=== PATIENT | female | born 1970 | race Caucasian/White ===

== ENCOUNTER 2016-05-17 06:11 | Inpatient (IN) | payer BC ==
[~2016-05-17] VITALS: Ht 170.2 cm; Wt 160.4 kg
[~2016-05-17 06:11] MED LIST: CETI10TA10 PO; CINN1CAP2 PO; CIPR-255 PO; ESCI10TA17 PO; GLC/500 PO; GLUCTAB7 PO; LSN/10125 PO; MELO15TA4 PO; MULT-513 PO; OMEG10007 PO; PRAV40TA2 PO; SYMIN/8045 INH
[2016-05-17] MEDS ORDERED: PIOG1TAB20 PO (06:49)
[2016-05-17] MEDS ORDERED: OMEG10007 PO (06:49)
[2016-05-17] MEDS ORDERED: SODIUM CHLORIDE 0.9% 1000ML 1,000 ML IV STA (06:53)
[2016-05-17] MEDS ORDERED: PIPERACILLIN/TAZOBACTAM 4.5 GM/100ML D5W IV STA (06:53)
[2016-05-17] MEDS ORDERED: SODIUM CHLORIDE 0.9% 500ML 500 ML IV STA (06:53)
[2016-05-17] MEDS ORDERED: VANCOMYCIN INJ 2,800 MG in SODIUM CHLORIDE 0.9% 500ML 500 ML IV STA (06:53)
--- NOTE | 2016-05-17 07:07 | EMERGENCY ROOM VISIT NOTE ---
History Report prepared by Gretchenibcholo: Nakia Sheets Under the Supervision of: Dr. Maddison Johnston M.D. First contact with patient: 06:43 Chief Complaint: ILLNESS Stated Complaint: MUSCLE ACHES,BACK PAIN,LEG/FOOT RED/PAIN History of Present Illness The patient is a 45 year old female who presents to the Emergency Room with complaints of worsening left lower leg redness over the past few weeks. About a month ago, the patient noticed blisters on her left foot from a pair of shoes. She went to [facility] and had a culture taken which revealed staph. Since then , she has had increased redness and some swelling to her left foot extending up to her left knee. Yesterday, the patient had a subjective fever that seemed to break last evening. Currently, she also complains of a headache, lower back pain , and muscle aches. The patient has a history of non-insulin dependent diabetes. She does not have a history of cellulitis. Denies groin pain or other complaints. She is a never smoker. She does not follow with a flower cheniller. Source of History: patient Onset: a few weeks ago Position: leg (left) Quality: other (red, swollen) Timing: worsening Associated Symptoms: + back pain, + fevers, + headache Note: Other symptoms: muscle aches Review of Systems See HPI for pertinent positives & negatives. A total of 10 systems reviewed and were otherwise negative. Past Medical & Surgical Medical Problems: (1) Arthritis (2) Cellulitis of left lower extremity (3) Diabetes (4) Heart murmur (5) Hypertension Surgical Problems: (1) S/P cholecystectomy Family History Cancer Diabetes mellitus Gallbladder disease Heart disease Hypertension Lung disease Social History Smoking Status: Never Smoker Marital Status: Housing Status: lives with family Occupation Status: employed Current/Historical Medications Scheduled Budesonide/Formoterol Fumarate (Symbicort 80/4.5 Inhaler), 2 PUFFS INH QAM Cinnamon (Cinnamon), 1 MG PO BID Escitalopram (Lexapro), 10 MG PO QAM Fish Oil ([place]-3), 1 CAP PO BID Lafkanmptms-Dkjvbonwecl-Vbr C- (Glucosamine Chondroitin), 1 TAB PO DAILY Hctz/Lisinopril (Lisinopril/Hctz 10/12.5 Mg), 1 TAB PO QPM Meloxicam (Meloxicam), 15 MG PO QAM Metformin Hcl (Glucophage), 1,000 MG PO BID Multivitamins/Minerals (Mvi With Minerals), 1 TAB PO QAM Pioglitazone Hcl (Pioglitazone Hcl), 45 MG PO QPM Pravastatin Sodium (Pravastatin Sodium), 40 MG PO QPM Allergies Coded Allergies: Aspirin (Verified Allergy, Severe, LIPS SWELL, 05/17/16) Physical Exam Vital Signs Date Time Temp Pulse Resp B/P Pulse Ox O2 Delivery O2 Flow Rate FiO2 05/17/16 08:42 76 18 118/67 99 Room Air 05/17/16 06:17 37.4 90 20 126/79 95 Room Air Physical Exam Vital signs reviewed. General: Well-appearing 45 year old female, in no significant distress, morbidly obese. HEENT: No scleral icterus, PERRLA, neck supple. Atraumatic. Cardiovascular: Regular rate and rhythm, no extra sounds. Pulmonary: Clear to auscultation bilaterally, normal work of breathing. Abdomen: Soft, nontender, nondistended, positive bowel sounds. Musculoskeletal: Atraumatic, left lower extremity erythema from the toes to the knee, minimal swelling, warm to touch, open wounds to the left lateral foot, no drainage, eschar noted to the most distal aspects of the wound. Neurologic: Patient awake alert and oriented x 3 Skin: Warm, dry, no rash Medical Decision & Procedures ER Provider Diagnostic Interpretation: Radiology results as stated below per my review and radiologist interpretation: LEFT LOWER EXTREMITY VENOUS DOPPLER CLINICAL HISTORY: Left lower extremity swelling and erythema. COMPARISON STUDY: CT of the abdomen and pelvis December 17, 2014. TECHNIQUE: Sonography of the deep venous system of the left lower extremity was performed. Compression and augmentation were evaluated. FINDINGS: This exam was compromised by inability to tolerate compressions. The left common femoral, superficial femoral and popliteal veins were compressible. Augmentation was normal. Flow was shown within the deep calf vessels. Note was made of an enlarged left inguinal lymph node measured 2.4 x 2.1 x 1.6 cm. The cortex of this node is thickened. A fatty hilum is not definitively identified. IMPRESSION: 1. No evidence of deep venous thrombus within the left lower extremity. 2. Mildly enlarged left inguinal lymph node. This node is indeterminate and may be reactive. However, other etiologies such as a lymphoproliferative process could appear similar. A follow-up ultrasound in 2 months is recommended. If this node persists, ultrasound guided fine needle aspiration is recommended. Electronically signed by: Davi Shell M.D. 05/17/2016 8:38 AM Dictated Date/Time: 05/17/2016 8:35 AM Laboratory Results Test 05/17/16 07:10 05/17/16 07:20 05/17/16 07:50 Prothrombin Time 12.0 SECONDS (9.0-12.0) Prothromb Time International Ratio 1.1 (0.9-1.1) Activated Partial Thromboplast Time 35.2 SECONDS (21.0-31.0) Partial Thromboplastin Ratio 1.4 Direct Bilirubin 0.5 mg/dl (0-0.2) Bedside Lactic Acid Venous 2.34 mmol/L (0.90-1.70) Urine Color DK YELLOW Urine Appearance CLEAR (CLEAR) Urine pH 6.0 (4.5-7.5) Urine Specific [place] 1.017 (1.000-1.030) Urine Protein 1+ (NEG) Urine Glucose (UA) NEG (NEG) Urine Ketones NEG (NEG) Urine Occult Blood NEG (NEG) Urine Nitrite NEG (NEG) Urine Bilirubin NEG (NEG) Urine Urobilinogen NEG (NEG) Urine Leukocyte Esterase MODERATE (NEG) Urine WBC (Auto) 10-30 /hpf (0-5) Urine RBC (Auto) 0-4 /hpf (0-4) Urine Hyaline Casts (Auto) 1-5 /lpf (0-5) Urine Epithelial Cells (Auto) >30 /lpf (0-5) Urine Bacteria (Auto) NEG (NEG) Laboratory results per my review. Medications Administered Medications (Trade) Dose Ordered Sig/Alethea Route Start Time Stop Time Status Last Admin Dose Admin Vancomycin HCl/ Sodium Chloride (Vancomycin Inj/ Nss 500ml) 556 ml @ 200 mls/hr ONE STAT IV 05/17/16 06:53 05/17/16 09:39 DC 05/17/16 08:33 200 MLS/HR Piperacillin Sod/ Tazobactam Sod 4.5 gm 4.5 gm NOW STAT IV 05/17/16 06:53 05/17/16 06:56 DC 05/17/16 07:37 4.5 GM Sodium Chloride 500 ml @ 999 mls/hr Q31M STAT IV 05/17/16 06:53 05/17/16 07:23 DC 05/17/16 07:30 999 MLS/HR Sodium Chloride (Nss 1000ml) 1,000 ml @ 150 mls/hr Q6H40M STAT IV 05/17/16 06:53 05/17/16 12:19 DC 05/17/16 08:33 150 MLS/HR Fentanyl Citrate (Fentanyl Inj) 100 mcg NOW ONCE IV 05/17/16 09:30 05/17/16 09:31 DC 05/17/16 09:43 100 MCG Potassium Chloride (Klor-Con M10) 40 meq NOW STAT PO 05/17/16 10:28 05/17/16 10:29 DC 05/17/16 11:25 40 MEQ Acetaminophen (Tylenol Tab) 650 mg Q4H PRN PO 05/17/16 10:45 06/16/16 10:44 05/18/16 05:08 650 MG ECG Indication: other (sepsis) Rate (beats per minute): 83 Rhythm: normal sinus Findings: no acute ischemic change, no ectopy, other (previous inferior infarct ) ED Course 0654: The patient was evaluated in room B3. A complete history and physical examination was performed. Ordered NSS 1000 ml @ 150 mls/hr IV, NSS 500 ml @ 999 mls/hr IV, Zosyn 4.5 gm IV, Vancomycin HCL 2800 mg/NSS 556 ml @ 200 mls/hr IV. 0842: I discussed the case with Dr. Sharmila BRADFORD Hospitalist. The patient will be evaluated for further management. 0928: Upon reevaluation, the patient is feeling better. I discussed laboratory and radiographic results with her. She verbalized agreement of the treatment plan. 0930: Ordered Fentanyl Inj 100 mcg IV. Medical Decision Differential diagnosis: Etiologies such as cellulitis, abscess, MRSA infection, DVT, necrotizing fasciitis, dermatitis, drug eruption, as well as others were entertained.. This patient was evaluated and appeared to be in some discomfort. IV access was obtained and laboratory work was drawn. The patient was placed on the court monitor and hydrated with normal saline solution. Laboratory work reveals an elevated white blood cell count. Physical examination is concerning for a left large every cellulitis. Lactate is elevated above 2. Blood cultures were obtained and the patient was medicated with IV Zosyn and vancomycin. It seems that the source of the patient's cellulitis is the left foot wound. Ultrasound left lower extremity reveals no evidence of DVT. Patient will be evaluated by the hospitalist service for further management. Consults Time Called: 08 Consulting Physician: Dr. Sharmila BRADFORD Hospitalist Returned Call: 08 I discussed the case with him. The patient will be evaluated for further management. Impression Primary Impression: Left leg cellulitis Additional Impression: Sepsis Scribe Attestation The scribe's documentation has been prepared under my direction and personally reviewed by me in its entirety. I confirm that the note above accurately reflects all work, treatment, procedures, and medical decision making performed by me. Departure Information Dispostion Being Evaluated By Hospitalist Referrals Mike Salas M.D. (PCP) Patient Instructions My [facility] Problem Qualifiers Additional Impression: Sepsis Sepsis type: sepsis due to unspecified organism Qualified Codes: A41.9 - Sepsis, unspecified organism
[2016-05-17 07:27] LABS: BASO % 0.1 %; BASO ABS # 0.01 K/uL (0-0.2); COMPLETE YES; EOS % 0.1 %; HEMATOCRIT 38.6 % (37-47); IG% 0.4 %; LYMPH % 6.5 %; MEAN CELL VOLUME 97.2 fL (80-100); MEAN CORPUSCULAR HEMOGLOBIN 32.2 pg (25-34); MEAN CORPUSCULAR HGB CONC 33.2 g/dl (32-36); MEAN PLATELET VOLUME 9.9 fL (7.4-10.4); MONO % 2.8 %; NEUT % 90.1 %; PLATELET COUNT 246 K/uL (130-400); RED BLOOD COUNT 3.97 M/uL (4.2-5.4); WHITE BLOOD COUNT 13.89 K/uL (4.8-10.8)
[2016-05-17 07:37] LABS: INR 1.1 (0.9-1.1); PARTIAL THROMBOPLASTIN RATIO 1.4
[2016-05-17 07:45] LABS: ALT/SGPT 22 U/L (12-78); BLOOD UREA NITROGEN 16 mg/dl (7-18); BUN/CREATININE RATIO 14.7 (10-20); CARBON DIOXIDE 24 mmol/L (21-32); CHLORIDE 100 mmol/L (98-107); GLUCOSE 142 mg/dl (70-99); MAGNESIUM 2.1 mg/dl (1.8-2.4); POTASSIUM 3.3 mmol/L (3.5-5.1); SODIUM 136 mmol/L (136-145)
[2016-05-17 07:48] LABS: ALKALINE PHOSPHATASE 52 U/L (45-117); AST/SGOT 18 U/L (15-37)
[2016-05-17 08:32] LABS: URINE APPEARANCE CLEAR (CLEAR); URINE BILIRUBIN NEG (NEG); URINE COLOR DK YELLOW; URINE EPITHELIAL CELL AUTO >30 /lpf (0-5); URINE NITRITE NEG (NEG); URINE SPECIFIC GRAVITY 1.017 (1.000-1.030); UROBILINOGEN NEG (NEG); ZZUR CULT IF INDIC CLEAN CATCH YES
--- NOTE | 2016-05-17 08:39 | DIAGNOSTIC IMAGING REPORT ---
LEFT LOWER EXTREMITY VENOUS DOPPLER CLINICAL HISTORY: Left lower extremity swelling and erythema. COMPARISON STUDY: CT of the abdomen and pelvis December 17, 2014. TECHNIQUE: Sonography of the deep venous system of the left lower extremity was performed. Compression and augmentation were evaluated. FINDINGS: This exam was compromised by inability to tolerate compressions. The left common femoral, superficial femoral and popliteal veins were compressible. Augmentation was normal. Flow was shown within the deep calf vessels. Note was made of an enlarged left inguinal lymph node measured 2.4 x 2.1 x 1.6 cm. The cortex of this node is thickened. A fatty hilum is not definitively identified. IMPRESSION: 1. No evidence of deep venous thrombus within the left lower extremity. 2. Mildly enlarged left inguinal lymph node. This node is indeterminate and may be reactive. However, other etiologies such as a lymphoproliferative process could appear similar. A follow-up ultrasound in 2 months is recommended. If this node persists, ultrasound guided fine needle aspiration is recommended. Electronically signed by: Davi Shell M.D. 05/17/2016 8:38 AM Dictated Date/Time: 05/17/2016 8:35 AM
[2016-05-17 08:43] LABS: MANUAL MICROSCOPIC REQUIRED? NO; REVIEW REQ? NO
[2016-05-17] MEDS ORDERED: FENTANYL CITRATE INJ 50 MCG/1 ML 2 ML VIAL IV ONE (09:30)
[2016-05-17] MEDS ORDERED: POTASSIUM CHLORIDE 10 MEQ TABCR PO STA (10:28)
[2016-05-17] MEDS ORDERED: DEXTROSE 50% 50 ML SYR IV PRN (10:45)
[2016-05-17] MEDS ORDERED: GLUCAGON FOR INJ 1 MG VIAL SQ PRN (10:45)
[2016-05-17] MEDS ORDERED: GLUCOSE 10 TABS/TUBE PO PRN (10:45)
[2016-05-17] MEDS ORDERED: GLUCOSE 40% GEL 15 GM TUBE PO PRN (10:45)
[2016-05-17] MEDS ORDERED: MoRPHine SULFATE 4 MG/ML 1 ML CARP\\VIAL IV PRN (10:45)
[2016-05-17] MEDS ORDERED: OPTIRAY 320 IV PRN (10:45)
--- NOTE | 2016-05-17 11:14 | History and Physical ---
History & Physical Date & Time of Service: May 17, 2016 at 10:56 Chief Complaint: Muscle Aches,Back Pain,Leg/Foot Red/Pain Primary Care Physician: Mike Salas M.D. History of Present Illness Source: patient, family Haylie Rojas is a 45 year-old female who is morbidly obese and carries a medical history of poorly controlled T2DM x6 years, HTN x25 years, asthma, hypercholesterolemia who comes in with LLE redness and swelling. She reports she had noted a blister on the lateral side of her left foot about a month ago, went to [facility] where a culture of the drain grew Staph and was treated with an unnamed antibiotic for 10 days which she has finished a few weeks ago. She has been following with her PCP and the left foot blister was healing well when 2 days ago, she suddenly had chills while at work. She took the day off yesterday and continued to have subjective fevers, diaphoresis and chills throughout the day. Late last night, she noted that her left calf was more red and also felt tight which prompted her to seek medical attention. She otherwise does not report n/v/constipation/diarrhea, headaches, chest pain, sob , abd pain. She also denies urinary symptoms such as burning/dysuria/hematuria. She reports her diabetes was poorly controlled with an A1c of 9.8 on metformin. She was subsequently started on Actos with improvement in her DM control since then. She reports never having seen a warp tester. Past Medical/Surgical History PMH - HTN x25 yrs, T2DM x6 years, hypercholesterolemia, asthma, morbid obesity, one episode of kidney stone Psh - right knee meniscal tear repair, cholecystectomy, rectal tear s/p botox, cone biopsy Allergies: Aspirin (angioedema) Family History Cancer Diabetes mellitus Gallbladder disease Heart disease Hypertension Lung disease FHx: diabetes in both side of family father with heart disease sister with diabetes Social History Smoking Status: Never Smoker Alcohol Use: none Drug Use: none Marital Status: Occupational Status: employed Allergies Coded Allergies: Aspirin (Verified Allergy, Severe, LIPS SWELL, 05/17/16) Home Medications Scheduled Budesonide/Formoterol Fumarate (Symbicort 80/4.5 Inhaler), 2 PUFFS INH QAM Cinnamon (Cinnamon), 1 MG PO BID Escitalopram (Lexapro), 10 MG PO QAM Fish Oil ([place]-3), 1 CAP PO BID Yeiqrmfhiqa-Qlbplmhaggd-Szv C- (Glucosamine Chondroitin), 1 TAB PO DAILY Hctz/Lisinopril (Lisinopril/Hctz 10/12.5 Mg), 1 TAB PO QPM Meloxicam (Meloxicam), 15 MG PO QAM Metformin Hcl (Glucophage), 1,000 MG PO BID Multivitamins/Minerals (Mvi With Minerals), 1 TAB PO QAM Pioglitazone Hcl (Pioglitazone Hcl), 45 MG PO QPM Pravastatin Sodium (Pravastatin Sodium), 40 MG PO QPM Review of Systems Ros as per HPI. Rest of ROS negative. Physical Exam Vital Signs Date Time Temp Pulse Resp B/P Pulse Ox O2 Delivery O2 Flow Rate FiO2 05/17/16 08:42 76 18 118/67 99 Room Air 05/17/16 06:17 37.4 90 20 126/79 95 Room Air NAD, AOX3, coherent and fluent speech eomi, perrl, anicteric s1 s2 rrr, no murmurs appreciated ctab no w/r/r abd soft nt/nd +BS no RLE edema, LLE 1+ swelling with erythema and warmth, slight bogginess in both sides of the left ankle good DP pulses 2+ on both feet, left 5th toe scab/necrotic tissue with lateral healing / dry wound Diagnostics Laboratory Results Results Past 24 Hours Test 05/17/16 07:10 05/17/16 07:20 05/17/16 07:50 Range/Units White Blood Count 13.89 4.8-10.8 K/uL Red Blood Count 3.97 4.2-5.4 M/uL Hemoglobin 12.8 12.0-16.0 g/dL Hematocrit 38.6 37-47 % Mean Corpuscular Volume 97.2 80-100 fL Mean Corpuscular Hemoglobin 32.2 25-34 pg Mean Corpuscular Hemoglobin Concent 33.2 32-36 g/dl Platelet Count 246 130-400 K/uL Mean Platelet Volume 9.9 7.4-10.4 fL Neutrophils (%) (Auto) 90.1 % Lymphocytes (%) (Auto) 6.5 % Monocytes (%) (Auto) 2.8 % Eosinophils (%) (Auto) 0.1 % Basophils (%) (Auto) 0.1 % Neutrophils # (Auto) 12.52 1.4-6.5 K/uL Lymphocytes # (Auto) 0.90 1.2-3.4 K/uL Monocytes # (Auto) 0.39 0.11-0.59 K/uL Eosinophils # (Auto) 0.01 0-0.5 K/uL Basophils # (Auto) 0.01 0-0.2 K/uL RDW Standard Deviation 51.2 36.4-46.3 fL RDW Coefficient of Variation 14.3 11.5-14.5 % Immature Granulocyte % (Auto) 0.4 % Immature Granulocyte # (Auto) 0.06 0.00-0.02 K/uL Prothrombin Time 12.0 9.0-12.0 SECONDS Prothromb Time International Ratio 1.1 0.9-1.1 Activated Partial Thromboplast Time 35.2 21.0-31.0 SECONDS Partial Thromboplastin Ratio 1.4 Sodium Level 136 136-145 mmol/L Potassium Level 3.3 3.5-5.1 mmol/L Chloride Level 100 98-107 mmol/L Carbon Dioxide Level 24 21-32 mmol/L Anion Gap 12.0 3-11 mmol/L Blood Urea Nitrogen 16 7-18 mg/dl Creatinine 1.10 0.60-1.20 mg/dl Estimated GFR () 69.7 Estimated GFR (Non- 60.2 BUN/Creatinine Ratio 14.7 10-20 Random Glucose 142 70-99 mg/dl Calcium Level 9.0 8.5-10.1 mg/dl Magnesium Level 2.1 1.8-2.4 mg/dl Total Bilirubin 1.8 0.2-1 mg/dl Direct Bilirubin 0.5 0-0.2 mg/dl Aspartate Amino Transf (AST/SGOT) 18 15-37 U/L Alanine Aminotransferase (ALT/SGPT) 22 12-78 U/L Alkaline Phosphatase 52 45-117 U/L Total Protein 8.2 6.4-8.2 gm/dl Albumin 3.3 3.4-5.0 gm/dl Bedside Lactic Acid Venous 2.34 0.90-1.70 mmol/L Urine Color DK YELLOW Urine Appearance CLEAR CLEAR Urine pH 6.0 4.5-7.5 Urine Specific [place] 1.017 1.000-1.030 Urine Protein 1+ NEG Urine Glucose (UA) NEG NEG Urine Ketones NEG NEG Urine Occult Blood NEG NEG Urine Nitrite NEG NEG Urine Bilirubin NEG NEG Urine Urobilinogen NEG NEG Urine Leukocyte Esterase MODERATE NEG Urine WBC (Auto) 10-30 0-5 /hpf Urine RBC (Auto) 0-4 0-4 /hpf Urine Hyaline Casts (Auto) 1-5 0-5 /lpf Urine Epithelial Cells (Auto) >30 0-5 /lpf Urine Bacteria (Auto) NEG NEG Microbiology Results 05/17/16 Blood Culture, Received Pending 05/17/16 Blood Culture, Received Pending 05/17/16 Urine Culture, Received Pending Diagnostic Radiology LEFT LOWER EXTREMITY VENOUS DOPPLER CLINICAL HISTORY: Left lower extremity swelling and erythema. COMPARISON STUDY: CT of the abdomen and pelvis December 17, 2014. TECHNIQUE: Sonography of the deep venous system of the left lower extremity was performed. Compression and augmentation were evaluated. FINDINGS: This exam was compromised by inability to tolerate compressions. The left common femoral, superficial femoral and popliteal veins were compressible. Augmentation was normal. Flow was shown within the deep calf vessels. Note was made of an enlarged left inguinal lymph node measured 2.4 x 2.1 x 1.6 cm. The cortex of this node is thickened. A fatty hilum is not definitively identified. IMPRESSION: 1. No evidence of deep venous thrombus within the left lower extremity. 2. Mildly enlarged left inguinal lymph node. This node is indeterminate and may be reactive. However, other etiologies such as a lymphoproliferative process could appear similar. A follow-up ultrasound in 2 months is recommended. If this node persists, ultrasound guided fine needle aspiration is recommended. Impression Assessment and Plan 1. LLE cellulitis - h/o "staph" infection, rapidity of symptoms however is more consistent with strep - given zosyn and vanco in ED, will cont vanco - ID and Ortho consult - will obtain LLE CT to eval for any drainable abscess - pain control 2. T2DM - glycemic consult - check A1c 3. HTN - well-controlled - cont HCTZ and lisinopril home dosages 4. Hypercholesterolemia - hold fish oil for now, cont statin 5. Anxiety/depression - cont home med lexapro 6. Asthma - stable - cont symbicort 7. dvt ppx VTE Prophylaxis VTE Risk Assessment Done? Y/N: Yes Risk Level: Moderate
[2016-05-17] MEDS ORDERED: VANCOMYCIN CONSULT ACTIVE PRN (11:15)
[2016-05-17] MEDS ORDERED: PATIENT'S HEIGHT AND/OR WEIGHT NEEDED SCH (11:15)
--- NOTE | 2016-05-17 11:24 | DIAGNOSTIC IMAGING REPORT ---
LEFT LOWER LEG CT CT DOSE: 350.85 mGy.cm HISTORY: Left lower leg swelling. TECHNIQUE: Multiaxial CT images of the left lower leg were performed and reformatted in the sagittal and coronal plane following the use of intravenous contrast. COMPARISON: Left leg venous Doppler 05/17/2016. FINDINGS: Subcutaneous edema/fat stranding within the left lower leg and foot. This is most pronounced at the distal left lower leg. There is mild skin thickening. No loculated fluid collections to suggest an abscess. Fatty atrophy of the majority of the foot most. No significant knee effusion. No fracture or dislocation within the visualized osseous structures. No CT evidence for osteomyelitis. Moderate osteoarthritis within the left. IMPRESSION: Subcutaneous edema/fat stranding within the majority of the left lower leg and left foot which is most pronounced at the distal left lower leg. There is also mild skin thickening. This favors a cellulitis. No loculated fluid collections to suggest an abscess. Electronically signed by: Nirav Chacko M.D. 05/17/2016 11:23 AM Dictated Date/Time: 05/17/2016 11:16 AM
[2016-05-17] MEDS ORDERED: PHARMACY GLYCEMIC MGMT CONSULT PRN (11:43)
[2016-05-17 11:45] VITALS: BP 119/76; PULSE 83; TEMP 37.4; O2SAT 97; Ht 170.2 cm; Wt 160.4 kg
[2016-05-17 12:35] VITALS: O2SAT 97
[2016-05-17] MEDS: INSULIN ASPART 100 UNITS/ML 3 ML PEN SC SCH ×3 (12:52→21:00)
[2016-05-17] MEDS: ACETAMINOPHEN 325 MG TAB PO PRN ×2 (12:56→21:50)
--- NOTE | 2016-05-17 13:03 | Pharmacy Progress Note ---
Glycemic Control Intl Consult Date of Service May 17, 2016. Scope Glycemic Pharmacist consulted by Dr Escamilla on 05/17/16 for glycemic control and to write orders per [facility] inpatient glycemic control protocol Objective Weight (Kilograms): 160.450 Accuchecks BSG (last 24hrs): Test 05/17/16 07:10 05/17/16 12:09 Random Glucose 142 mg/dl (70-99) Bedside Glucose 107 mg/dl (70-90) Laboratory Data (last 24hrs) Test 05/17/16 07:10 Anion Gap 12.0 mmol/L BUN/Creatinine Ratio 14.7 Blood Urea Nitrogen 16 mg/dl Creatinine 1.10 mg/dl Potassium Level 3.3 mmol/L Sodium Level 136 mmol/L White Blood Count 13.89 K/uL Red Blood Count 3.97 M/uL Hemoglobin 12.8 g/dL Hematocrit 38.6 % Mean Corpuscular Volume 97.2 fL Mean Corpuscular Hemoglobin 32.2 pg Mean Corpuscular Hemoglobin Concent 33.2 g/dl Platelet Count 246 K/uL Mean Platelet Volume 9.9 fL Neutrophils (%) (Auto) 90.1 % Lymphocytes (%) (Auto) 6.5 % Monocytes (%) (Auto) 2.8 % Eosinophils (%) (Auto) 0.1 % Basophils (%) (Auto) 0.1 % Neutrophils # (Auto) 12.52 K/uL Lymphocytes # (Auto) 0.90 K/uL Monocytes # (Auto) 0.39 K/uL Eosinophils # (Auto) 0.01 K/uL Basophils # (Auto) 0.01 K/uL HbA1c 8.5% on 05/26/14 (outdated- new result pending for tomorrow with AM labs) Recent Pertinent Medications Outpatient Anti-diabetic Regimen: * Metformin 1,000mg PO BID * Actos 45mg PO daily * Cinnamon BID Risk Factors for Insulin Resistance: * Infection * Obesity * History of uncontrolled DM/elevated A1c Assessment & Plan ASSESSMENT: * 45yo T2DM female with sub-optimal glycemic control as an outpatient per pt reported A1c. Updated value pending for tomorrow AM * Pt is maintained on oral antidiabetic agents as an outpatient * Oral agents are not recommended for inpatient use d/t difficultly titrating in acute situations, drug interactions, & changing PO intake/status * ADA recommends re-initiating outpatient oral agents 1-2 days prior to discharge if/when appropriate if they were held on admission. * Recommended regimen for inpatient use is SQ Basal Bolus insulin regimen with Lantus + NovoLog * Weight based SQ basal bolus insulin dosing per [facility] calculator will be used while oral antidiabetic agents on hold. Will titrate parameters based on BSG trends * BSGs within normal limits on admission and currently NPO status. Basal insulin may not be warranted at this time. Will initiate basal insulin for persistent hyperglycemia (BSG > 180mg/dl) * ADA & AACE recommend a goal blood sugar range 140-180 mg/dl for the majority of critically ill & non-critically ill patients. However, more stringent targets may be selected in individual cases. Will utilize more stringent target of 110-140mg/dl based on patient age & comorbidities. PLAN FOR INPATIENT GLYCEMIC CONTROL: * Holding outpatient oral diabetes medications * Depending on A1c result and discharge plan - will try to re-initiate 1-2 days prior to discharge once renal function assessed and PO intake adequate * Basal insulin with Lantus per conservative weight based dosing for persistent hyperglycemia (BSG > 180mg/dl). If needed, would start Lantus 15 units SQ BID * Correctional Insulin with NOVOLOG per scale ACHS or Q6hrs while NPO * Goal Range: Low 110 mg/dL - High 140 mg/dL * Correction Factor: 15 mg/dL/unit * Nutritional / Prandial insulin per carb ratio of 1 unit per 5 grams CHO consumed * Please note that the plan above was derived based on current level of insulin resistance and hospital stress. These recommendations are appropriate for inpatient admission only. Plan of care upon discharge will need to be reassessed to avoid potential outpatient hypo/hyperglycemia. Thank you.
--- NOTE | 2016-05-17 13:13 | Pharmacy Progress Note ---
Pharmacy Antibiotic Consult Date of Service: May 17, 2016. Pharmacy Dosing Scope Pharmacy is consulted to initiate Vancomycin IV dosing therapy, order appropriate labs and adjust drug dose/frequency. Subjective The patient is a 45 year old female admitted on May 17, 2016 at 10:48 with LLE Cellulitis, history of staph, but rapidity of symptoms more consistent with strep. IV Zosyn and Vanco started in ED, ID & Ortho consults. Objective Height (Feet): 5 Height (Inches): 7.00 Weight (Kilograms): 160.450 Lab Results (24hrs): Laboratory Tests Test 05/17/16 07:10 BUN/Creatinine Ratio 14.7 Blood Urea Nitrogen 16 mg/dl Creatinine 1.10 mg/dl White Blood Count 13.89 K/uL Red Blood Count 3.97 M/uL Hemoglobin 12.8 g/dL Hematocrit 38.6 % Mean Corpuscular Volume 97.2 fL Mean Corpuscular Hemoglobin 32.2 pg Mean Corpuscular Hemoglobin Concent 33.2 g/dl Platelet Count 246 K/uL Mean Platelet Volume 9.9 fL Neutrophils (%) (Auto) 90.1 % Lymphocytes (%) (Auto) 6.5 % Monocytes (%) (Auto) 2.8 % Eosinophils (%) (Auto) 0.1 % Basophils (%) (Auto) 0.1 % Neutrophils # (Auto) 12.52 K/uL Lymphocytes # (Auto) 0.90 K/uL Monocytes # (Auto) 0.39 K/uL Eosinophils # (Auto) 0.01 K/uL Basophils # (Auto) 0.01 K/uL Micro Results: blood and urine cultures pending Recent Pertinent Medications Zosyn 4.5g IV x1 in ED at 0737 Assessment & Plan 45 yo obese (BMI 55.4kg/m2) female admitted with LLE Cellulitis. * Received in ED: Loading dose: Vancomycin 2800 mg (17.5mg/kg) IV X 1 dose. Will begin maintenance dosing about 10 hours after. * Vancomycin 2000 mg (12.5mg/kg) IV every 14 hours * Pharmacokinetic parameters: T1/2 = 11hrs, Cristhian = 0.063/hr, Vd = 0.6L/Kg * Goal trough level estimate: around 15 mcg/mL for cellulitis * Trough level has been ordered for: prior to 2200 dose, this will be after patient has received 3 total doses. Pharmacy will continue to follow and will adjust dose/frequency as necessary. Thank you
--- NOTE | 2016-05-17 13:29 | Medical Consult ---
Consultation Date of Consultation: May 17, 2016. Attending Physician: Olimpia Escamilla MD Reason for Consultation: left leg cellulitis History of Present Illness 45-year-old female with longstanding poorly controlled diabetes mellitus, who was in usual state of health until several weeks ago, when she developed blister on her right foot from poorly fitting shoes. Area became red and inflamed, and she sought medical attention from a local walk-in clinic. She she was given an unknown antibiotic, and reportedly culture of the blister fluid grew Staphylococcus. Had initial improvement, but approximately 2 days ago, noted markedly worsening swelling and redness of the foot, with redness extending up her leg to her knee. She has not noted any fever but felt ill with chills. She returned to the hospital and now has been admitted for cellulitis of her right leg. She has been started empirically on IV vancomycin , has noted little changed since admission. She remains afebrile. Blood cultures have been taken and are pending. Denies any shortness of breath or chest pain. CT scan of the leg, Read by me, shows evidence of cellulitis but no drainable collection or deep infection. Past Medical/Surgical History Medical Problems: (1) Left leg cellulitis Status: Acute (2) Sepsis Status: Acute Medical Problems: (1) Arthritis (2) Cellulitis of left lower extremity (3) Diabetes (4) Heart murmur (5) Hypertension Surgical Problems: (1) S/P cholecystectomy Family History Cancer Diabetes mellitus Gallbladder disease Heart disease Hypertension Lung disease Social History Smoking Status: Never Smoker Alcohol Use: none Drug Use: none Marital Status: Housing Status: lives with family Occupation Status: employed Allergies Coded Allergies: Aspirin (Verified Allergy, Severe, LIPS SWELL, 05/17/16) Current Inpatient Medications Current Inpatient Medications Medications (Trade) Dose Ordered Sig/Alethea Route Start Time Stop Time Status Last Admin Dose Admin Ioversol (Optiray 320) 125 ml UD PRN IV 05/17/16 10:45 05/21/16 10:44 Enoxaparin Sodium (Lovenox Inj) 40 mg Q24H SQ 05/17/16 21:00 06/16/16 20:59 Acetaminophen (Tylenol Tab) 650 mg Q4H PRN PO 05/17/16 10:45 06/16/16 10:44 05/17/16 12:56 650 MG Insulin Aspart (novoLOG ASPART) SLIDING SCALE If C... Q6 SC 05/17/16 12:00 06/16/16 11:59 Glucose (Glucose 40% Gel) 15-30 GRAMS 15 GRAMS... UD PRN PO 05/17/16 10:45 06/16/16 10:44 Glucose (Glucose Chew Tab) 4-8 Tablets 4 Tabl... UD PRN PO 05/17/16 10:45 06/16/16 10:44 Dextrose (Dextrose 50% 50ML Syringe) 25-50ML OF 50% DW IV FOR... UD PRN IV 05/17/16 10:45 06/16/16 10:44 Glucagon (Glucagon Inj) 1 mg UD PRN SQ 05/17/16 10:45 06/16/16 10:44 Morphine Sulfate (MoRPHine SULFATE INJ) 2 mg Q4H PRN IV 05/17/16 10:45 05/31/16 10:44 Morphine Sulfate (MoRPHine SULFATE INJ) 4 mg Q4H PRN IV 05/17/16 10:45 05/31/16 10:44 Budesonide/ Formoterol Fumarate (Symbicort 80/ 4.5 Inh) 2 puffs QAM INH 05/18/16 09:00 06/17/16 08:59 Escitalopram Oxalate (Lexapro Tab) 10 mg QAM PO 05/18/16 09:00 06/17/16 08:59 HCTZ/Lisinopril (Prinzide 10-12.5MG Tab) 1 tab QPM PO 05/17/16 21:00 06/16/16 20:59 Multivitamins/ Minerals (Multivitamin W/ Minerals Tab) 1 tab QAM PO 05/18/16 09:00 06/17/16 08:59 Pravastatin Sodium (Pravachol Tab) 40 mg QPM PO 05/17/16 21:00 06/16/16 20:59 Miscellaneous Information (Consult Glycemic Management Pharmacy) 1 ea UD PRN N/A 05/17/16 11:43 06/16/16 11:42 Vancomycin HCl 1 ea 1 ea UD PRN N/A 05/17/16 11:15 06/16/16 11:14 Vancomycin HCl/ Sodium Chloride (Vancomycin Inj/ Nss 500ml) 540 ml @ 200 mls/hr Q14H IV 05/17/16 18:00 05/27/16 17:59 Review of Systems Constitutional: + chills, + fatigue, + fever, + sweats, + weakness Eyes: No problem reported ENT: No problem reported Respiratory: No problem reported Cardiovascular: No problem reported Abdomen: No problem reported Musculoskeletal: + calf pain, + swelling Genitourinary - Female: No problem reported Neurologic: No problem reported Psychiatric: No problem reported Endocrine: No problem reported Hematologic / Lymphatic: No problem reported Integumentary: No problem reported Allergic / Immunologic: No problem reported Physical Exam Date Time Temp Pulse Resp B/P Pulse Ox O2 Delivery O2 Flow Rate FiO2 05/17/16 12:35 97 Room Air 05/17/16 11:45 97 Room Air 05/17/16 11:45 37.4 83 16 119/76 05/17/16 11:24 79 20 139/71 99 Room Air 05/17/16 08:42 76 18 118/67 99 Room Air 05/17/16 06:17 37.4 90 20 126/79 95 Room Air General Appearance: WD/WN, no apparent distress, + obese Head: normocephalic, atraumatic Eyes: normal inspection, EOMI, sclerae normal ENT: normal ENT inspection, hearing grossly normal, pharynx normal Neck: supple, no adenopathy, thyroid normal, trachea midline Respiratory/Chest: chest non-tender, lungs clear, normal breath sounds, no respiratory distress Cardiovascular: regular rate, rhythm, no gallop, no murmur Abdomen/GI: normal bowel sounds, non tender, soft, no organomegaly Back: normal inspection, no CVA tenderness Extremities/Musculoskelatal: normal capillary refill, + inflammation (left leg) , + swelling (left leg) Neurologic/Psych: alert, oriented x 3 Skin: normal color, no rash, + pertinent finding (left leg cellulitis from foot to knee, eschar left 5th toe and lateral foot) Laboratory Results Date/Time Source Procedure Growth Status 05/17/16 07:20 Blood Blood Culture Pending Received 05/17/16 07:10 Blood Blood Culture Pending Received 05/17/16 07:50 Urine , Clean Catch Urine Culture Pending Received Last 24 Hours Test 05/17/16 07:10 05/17/16 07:20 05/17/16 07:50 05/17/16 12:09 White Blood Count 13.89 K/uL Red Blood Count 3.97 M/uL Hemoglobin 12.8 g/dL Hematocrit 38.6 % Mean Corpuscular Volume 97.2 fL Mean Corpuscular Hemoglobin 32.2 pg Mean Corpuscular Hemoglobin Concent 33.2 g/dl Platelet Count 246 K/uL Mean Platelet Volume 9.9 fL Neutrophils (%) (Auto) 90.1 % Lymphocytes (%) (Auto) 6.5 % Monocytes (%) (Auto) 2.8 % Eosinophils (%) (Auto) 0.1 % Basophils (%) (Auto) 0.1 % Neutrophils # (Auto) 12.52 K/uL Lymphocytes # (Auto) 0.90 K/uL Monocytes # (Auto) 0.39 K/uL Eosinophils # (Auto) 0.01 K/uL Basophils # (Auto) 0.01 K/uL RDW Standard Deviation 51.2 fL RDW Coefficient of Variation 14.3 % Immature Granulocyte % (Auto) 0.4 % Immature Granulocyte # (Auto) 0.06 K/uL Prothrombin Time 12.0 SECONDS Prothromb Time International Ratio 1.1 Activated Partial Thromboplast Time 35.2 SECONDS Partial Thromboplastin Ratio 1.4 Sodium Level 136 mmol/L Potassium Level 3.3 mmol/L Chloride Level 100 mmol/L Carbon Dioxide Level 24 mmol/L Anion Gap 12.0 mmol/L Blood Urea Nitrogen 16 mg/dl Creatinine 1.10 mg/dl Estimated GFR () 69.7 Estimated GFR (Non- 60.2 BUN/Creatinine Ratio 14.7 Random Glucose 142 mg/dl Calcium Level 9.0 mg/dl Magnesium Level 2.1 mg/dl Total Bilirubin 1.8 mg/dl Direct Bilirubin 0.5 mg/dl Aspartate Amino Transf (AST/SGOT) 18 U/L Alanine Aminotransferase (ALT/SGPT) 22 U/L Alkaline Phosphatase 52 U/L Total Protein 8.2 gm/dl Albumin 3.3 gm/dl Bedside Lactic Acid Venous 2.34 mmol/L Urine Color DK YELLOW Urine Appearance CLEAR Urine pH 6.0 Urine Specific [place]at[place] 1.017 Urine Protein 1+ Urine Glucose (UA) NEG Urine Ketones NEG Urine Occult Blood NEG Urine Nitrite NEG Urine Bilirubin NEG Urine Urobilinogen NEG Urine Leukocyte Esterase MODERATE Urine WBC (Auto) 10-30 /hpf Urine RBC (Auto) 0-4 /hpf Urine Hyaline Casts (Auto) 1-5 /lpf Urine Epithelial Cells (Auto) >30 /lpf Urine Bacteria (Auto) NEG Bedside Glucose 107 mg/dl LEFT LOWER LEG CT CT DOSE: 350.85 mGy.cm HISTORY: Left lower leg swelling. TECHNIQUE: Multiaxial CT images of the left lower leg were performed and reformatted in the sagittal and coronal plane following the use of intravenous contrast. COMPARISON: Left leg venous Doppler 05/17/2016. FINDINGS: Subcutaneous edema/fat stranding within the left lower leg and foot. This is most pronounced at the distal left lower leg. There is mild skin thickening. No loculated fluid collections to suggest an abscess. Fatty atrophy of the majority of the foot most. No significant knee effusion. No fracture or dislocation within the visualized osseous structures. No CT evidence for osteomyelitis. Moderate osteoarthritis within the left. IMPRESSION: Subcutaneous edema/fat stranding within the majority of the left lower leg and left foot which is most pronounced at the distal left lower leg. There is also mild skin thickening. This favors a cellulitis. No loculated fluid collections to suggest an abscess. Electronically signed by: Nirav Chacko M.D. 05/17/2016 11:23 AM Dictated Date/Time: 05/17/2016 11:16 AM The status of this report is Signed. Draft = Not yet reviewed or approved by Radiologist. Signed = Reviewed and approved by Radiologist. <AttendingPhy></AttendingPhy> <FamilyPhy>Mike Salas M.D.</FamilyPhy> < PrimaryPhy>Mike Salas M.D.</PrimaryPhy> <UnitNumber>[id number]</ UnitNumber> <VisitNumber>[id number]</VisitNumber> <PatientName>ALTHEAELGINMONICA< /PatientName> <DateOfBirth>1970</DateOfBirth> <Location>[facility]</Location> Assessment & Plan Left leg cellulitis in diabetic female. Initial culture with Staph, but wonder about streptococcal secondary infection given rapidity of spread and systemic complaints. Given difficulty with therapeutic vancomycin levels, will change patient to IV ceftaroline 600 mg q 12 hours. No obvious indications for surgical intervention at present time. Length of IV therapy to be determined by clinical response, Will follow.
[2016-05-17] MEDS: CEFTAROLINE FOSAMIL INJ 600 MG in SODIUM CHLORIDE 0.9% 250ML 250 ML IV SCH (14:28)
[2016-05-17 15:25] VITALS: BP 93/52; PULSE 72; TEMP 37.1; O2SAT 97
[2016-05-17 15:26] VITALS: BP 103/64
[2016-05-17] MEDS ORDERED: VANCOMYCIN INJ 2,000 MG in SODIUM CHLORIDE 0.9% 500ML 500 ML IV SCH (18:00)
[2016-05-17] MEDS ORDERED: NURSING VERBAL MED ORDER ONE (19:30)
[2016-05-17] MEDS ORDERED: VANCOMYCIN 1GM/270ML NSS IV SCH (21:00)
[2016-05-17] MEDS: INSULIN GLARGINE SOLOSTAR 100 UNITS/ML 3 ML PEN SC SCH (21:00)
[2016-05-17] MEDS ORDERED: LISINOPRIL/HCTZ 10/12.5MG TAB PO SCH (21:00)
[2016-05-17] MEDS: PRAVASTATIN SOD 40 MG TAB PO SCH (21:42)
[2016-05-17] MEDS: ENOXAPARIN 40 MG/0.4 ML SYR SQ SCH (21:43)
[2016-05-17 22:50] VITALS: BP 105/66; PULSE 85; TEMP 37.3; O2SAT 96
[2016-05-18 00:23] VITALS: O2SAT 97
--- NOTE | 2016-05-18 01:35 | ORTHOPEDIC CONSULTATION ---
DATE OF CONSULTATION: 05/17/2016 HISTORY OF PRESENT ILLNESS: This is a 45-year-old female seen at the request of Dr. Escamilla for left lower extremity cellulitis and leg pain. Apparently, the patient had noticed blistering on lateral side of her left foot if she wore some shoes that were not well fitting. She went to [facility], there was some drainage, which was cultured, it was noted to be staph, and was treated with an antibiotic for 10 days, which she finished several weeks ago. She noted that her blister was healing fairly well with some scabbing and then 2 days ago had chills while at work while at [employer]. She took the day off yesterday and had fevers without any actual temperature taken and chills throughout the day. She noted that her left calf was more and more red and swollen since yesterday with increasing tightness and then she presented to the Emergency Department. She denies nausea, vomiting, diarrhea, chest pain, shortness of breath, double vision, blurry vision. No dysuria or hematuria. PAST MEDICAL HISTORY: Type 2 diabetes mellitus for the last 6 years, hypercholesterolemia, hypertension x25 years, asthma, morbid obesity, kidney stones. PAST SURGICAL HISTORY: Right knee meniscal debridement, cholecystectomy, rectal tear and cone biopsy. ALLERGIES: ASPIRIN, SHE HAS HAD ANGIOEDEMA. MEDICATIONS: Symbicort 80/4.5 inhaler q.a.m., Lexapro 10 mg p.o. q.a.m., fish oil 1 cap p.o. b.i.d., glucosamine/chondroitin sulfate 1 tab p.o. daily, lisinopril/hydrochlorothiazide 10/12.5 mg 1 tab p.o. q.p.m., Meloxicam 50 mg p.o. q.a.m., Glucophage 1000 mg p.o. b.i.d., multivitamin with minerals 1 tab p.o. q.a.m. pioglitazone HCL 45 mg p.o. q.p.m. and pravastatin 40 mg p.o. q.p.m. SOCIAL HISTORY: She is . She denies tobacco, alcohol or drug use. 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 PHYSICAL EXAMINATION: GENERAL: This is a 45-year-old woman who is morbidly obese. She is sitting supine in her hospital room with her family members present. Alert and oriented x3. Speech is clear and fluent. Affect is appropriate. EXTREMITIES: Examination of bilateral lower extremities demonstrates morbid obesity, left lower extremity cellulitis extending from the infrapatellar region distally including the entire foot and toes. She has significant tenderness to palpation along the left lower extremity. She has a 2-3/4 edema in the left lower extremity where she has 1-2/4 edema in the right lower extremity. Dorsalis pedis and posterior tib pulses 2/4 bilateral lower extremities. She has uniform fusiform swelling of the left lower extremity. Foot is sensate, is warm, limited range of motion due to pain and discomfort, left lower extremity. No crepitation. No subcutaneous air palpated. No obvious abscesses or fluctuance. The lateral aspect of the hindfoot; however, demonstrates an area of increased swelling compared to the proximal and distal extent of the lower extremity and foot. CT scan demonstrates no drainable abscesses. No fractures. Ultrasound demonstrates no obvious venous occlusions. IMPRESSION: 1. Left lower extremity cellulitis. 2. Left foot eschars lateral plantar aspect. RECOMMENDATIONS: As there is no obvious drainable abscesses we recommend continuation with IV antibiotics as per infectious disease and department of medicine. Limited weightbearing to transfers and room ambulation only. Elevation for comfort. Will follow with you to assess for possible abscess formation. Thank you for the opportunity to consult in the care of this patient. ISAMAR
[2016-05-18] MEDS: CEFTAROLINE FOSAMIL INJ 600 MG in SODIUM CHLORIDE 0.9% 250ML 250 ML IV SCH ×2 (02:14→14:16)
[2016-05-18] MEDS: ACETAMINOPHEN 325 MG TAB PO PRN (05:08)
[2016-05-18 05:44] LABS: BASO % 0.1 %; BASO ABS # 0.02 K/uL (0-0.2); COMPLETE YES; EOS % 0.1 %; IG% 0.3 %; LYMPH % 7.4 %; MEAN CELL VOLUME 96.9 fL (80-100); MEAN CORPUSCULAR HEMOGLOBIN 32.1 pg (25-34); MEAN CORPUSCULAR HGB CONC 33.2 g/dl (32-36); MONO % 4.5 %; NEUT % 87.6 %; PLATELET COUNT 230 K/uL (130-400); RED BLOOD COUNT 3.92 M/uL (4.2-5.4)
[2016-05-18 06:08] LABS: CALCIUM 8.2 mg/dl (8.5-10.1); CREATININE 0.95 mg/dl (0.60-1.20); MAGNESIUM 2.2 mg/dl (1.8-2.4); POTASSIUM 3.3 mmol/L (3.5-5.1)
[2016-05-18 06:11] LABS: ALB/GLOB RATIO 0.6 (0.9-2)
[2016-05-18 06:30] LABS: ESTIMATED AVERAGE GLUCOSE 111 mg/dl; HA1C FLAG Normal (Normal)
[2016-05-18 06:59] VITALS: BP 93/62; PULSE 75; TEMP 36.7; O2SAT 96
[2016-05-18 08:00] VITALS: O2SAT 96
[2016-05-18] MEDS: ESCITALOPRAM OXALATE 10 MG TAB PO SCH (08:35)
[2016-05-18] MEDS: CEROVITE ADV FORMULA TAB PO SCH (08:35)
[2016-05-18] MEDS: BUDESONIDE/FORMOTEROL FUMARATE 80/4.5 60 PUFFS/INHALER INH SCH (08:35)
[2016-05-18] MEDS: INSULIN ASPART 100 UNITS/ML 3 ML PEN SC SCH ×4 (08:45→21:00)
[2016-05-18] MEDS: INSULIN GLARGINE SOLOSTAR 100 UNITS/ML 3 ML PEN SC SCH (08:46)
[2016-05-18] MEDS ORDERED: POTASSIUM CHLORIDE 20 MEQ TABCR PO ONE (12:15)
--- NOTE | 2016-05-18 12:18 | Orthopedic Progress Note ---
Orthopedic Progress Note Date of Service May 18, 2016. Subjective Denies: SOB, chest pain, light headedness, nausea / vomiting Additional Notes: Left lower leg pain and swelling improving. No fevers or chills. Objective N/V intact, A&O x3, toes mobile Decreased L LE edema and redness. Receding erythema from line of demarcation. Superficial skin blister medial left heel. Eschar lateral left foot. Date Time Temp Pulse Resp B/P Pulse Ox O2 Delivery O2 Flow Rate FiO2 05/18/16 08:00 96 Room Air 05/18/16 06:59 36.7 75 17 93/62 96 Room Air 05/18/16 00:23 97 Room Air 05/17/16 22:50 37.3 85 18 105/66 96 Room Air 05/17/16 15:40 Room Air 05/17/16 15:26 103/64 05/17/16 15:25 37.1 72 18 93/52 97 Room Air 05/17/16 12:35 97 Room Air Laboratory Results 24 Hours: Test 05/18/16 05:15 White Blood Count 14.80 K/uL Red Blood Count 3.92 M/uL Hemoglobin 12.6 g/dL Hematocrit 38.0 % Mean Corpuscular Volume 96.9 fL Mean Corpuscular Hemoglobin 32.1 pg Mean Corpuscular Hemoglobin Concent 33.2 g/dl Platelet Count 230 K/uL Mean Platelet Volume 10.0 fL Neutrophils (%) (Auto) 87.6 % Lymphocytes (%) (Auto) 7.4 % Monocytes (%) (Auto) 4.5 % Eosinophils (%) (Auto) 0.1 % Basophils (%) (Auto) 0.1 % Neutrophils # (Auto) 12.96 K/uL Lymphocytes # (Auto) 1.10 K/uL Monocytes # (Auto) 0.66 K/uL Eosinophils # (Auto) 0.01 K/uL Basophils # (Auto) 0.02 K/uL Assessment & Plan Assessment: Left LE cellulitis-improving on IV anbx Superficial skin blister medial left heel Plan: Cont IV anbx Continue to follow w/ you to monitor for abscess formation. Minimize WB L LE.
[2016-05-18 14:59] VITALS: BP 112/75; PULSE 77; TEMP 36.8; O2SAT 98
--- NOTE | 2016-05-18 15:30 | Pharmacy Progress Note ---
Glycemic: Assessment & Plan Date of Service May 18, 2016. Assessment & Plan Item Value Date Time Bedside Glucose 107 mg/dl H 05/17/16 1209 Bedside Glucose 107 mg/dl H 05/17/16 1856 Bedside Glucose 109 mg/dl H 05/17/16 2042 Bedside Glucose 118 mg/dl H 05/18/16 0805 Bedside Glucose 108 mg/dl H 05/18/16 1142 Item Value Date Time Estimated Average Glucose 111 mg/dl 05/18/16 0515 Hemoglobin A1c 5.5 % 05/18/16 0515 ASSESSMENT: * 45yo T2DM female with adequate outpatient control per recent A1c. No changes needed to outpatient regimen * The patient is currently receiving ~4 units of insulin per day which is all prandial/correctional insulin. * Fasting BSGs in range, basal insulin not needed at this time * Pt is currently ordered NovoLog with CF/CR only. This is adequately maintaining glycemic control. PLAN: * Novolog per scale ACHS * Goal Range: Low 110 mg/dL - High 140 mg/dL * Correction Factor: 30 mg/dL/unit * Prandial insulin: Per carb ratio of 1 unit per 10 grams CHO consumed * No basal insulin needed at this time * A1c added to d/c instructions to be communicated to PCP * Pt may resume previous outpatient regimen at d/c * Pharmacy is signing off of glycemic consult. Please feel free to re-consult if needed.
[2016-05-18] MEDS: MoRPHine SULFATE 2 MG/ML CARP IV PRN ×2 (16:18→23:30)
--- NOTE | 2016-05-18 17:31 | Progress Note ---
Subjective Date of Service: May 18, 2016. Subjective Pt evaluation today including: conversation w/ patient, physical exam, lab review, review of studies, review of inpatient medication list Patient feels fine. No fevers overnight. Left leg redness improved. No chest pain, no sob. No new complaints. Problem List Medical Problems: (1) Left leg cellulitis Status: Acute (2) Sepsis Status: Acute Review of Systems All Other Systems: Reviewed and Negative Medications Acetaminophen (Tylenol Tab) 650 mg Q4H PRN PO Last administered on 05/18/16 05:08; Admin Dose 650 MG; Start 05/17/16 at 10:45; Stop 06/16/16 at 10:44 Budesonide/ Formoterol Fumarate (Symbicort 80/ 4.5 Inh) 2 puffs QAM INH Last administered on 05/18/16 08:35; Admin Dose 2 PUFFS; Start 05/18/16 at 09:00; Stop 06/17/16 at 08:59 Ceftaroline Fosamil/Sodium Chloride (Teflaro Inj/Nss 250ml) 270 ml @ 250 mls/ hr Q12@0200,1400 IV Last administered on 05/18/16 14:16; Admin Dose 250 MLS/HR ; Start 05/17/16 at 14:30; Stop 05/27/16 at 14:29 Dextrose (Dextrose 50% 50ML Syringe) 25-50ML OF 50% DW IV FOR... UD PRN IV; Start 05/17/16 at 10:45; Stop 06/16/16 at 10:44 Enoxaparin Sodium (Lovenox Inj) 40 mg Q24H SQ Last administered on 05/17/16 21: 43; Admin Dose 40 MG; Start 05/17/16 at 21:00; Stop 06/16/16 at 20:59 Escitalopram Oxalate (Lexapro Tab) 10 mg QAM PO Last administered on 05/18/16 08:35; Admin Dose 10 MG; Start 05/18/16 at 09:00; Stop 06/17/16 at 08:59 Glucagon (Glucagon Inj) 1 mg UD PRN SQ; Start 05/17/16 at 10:45; Stop 06/16/16 at 10:44 Glucose (Glucose 40% Gel) 15-30 GRAMS 15 GRAMS... UD PRN PO; Start 05/17/16 at 10:45; Stop 06/16/16 at 10:44 Glucose (Glucose Chew Tab) 4-8 Tablets 4 Tabl... UD PRN PO; Start 05/17/16 at 10:45; Stop 06/16/16 at 10:44 Insulin Aspart (novoLOG ASPART) SLIDING SCALE If C... ACHS SC Last administered on 05/18/16 08:45; Admin Dose 4 UNITS; Start 05/17/16 at 21:00; Stop 06/16/16 at 11:59 Ioversol (Optiray 320) 125 ml UD PRN IV; Start 05/17/16 at 10:45; Stop at 10:44 Lisinopril (Zestril Tab) 10 mg QAM PO; Start 05/19/16 at 09:00; Stop 06/18/16 at 08:59 Morphine Sulfate (MoRPHine SULFATE INJ) 2 mg Q4H PRN IV Last administered on 16:18; Admin Dose 2 MG; Start 05/17/16 at 10:45; Stop 05/31/16 at 10:44 Morphine Sulfate (MoRPHine SULFATE INJ) 4 mg Q4H PRN IV; Start 05/17/16 at 10: 45; Stop 05/31/16 at 10:44 Multivitamins/ Minerals (Multivitamin W/ Minerals Tab) 1 tab QAM PO Last administered on 05/18/16 08:35; Admin Dose 1 TAB; Start 05/18/16 at 09:00; Stop 06/17/16 at 08:59 Pravastatin Sodium 40 mg 40 mg QPM PO Last administered on 05/17/16 21:42; Admin Dose 40 MG; Start 05/17/16 at 21:00; Stop 06/16/16 at 20:59 Objective Vital Signs Date Time Temp Pulse Resp B/P Pulse Ox O2 Delivery O2 Flow Rate FiO2 05/18/16 14:59 36.8 77 18 112/75 98 Room Air 05/18/16 08:00 96 Room Air 05/18/16 06:59 36.7 75 17 93/62 96 Room Air 05/18/16 00:23 97 Room Air 05/17/16 22:50 37.3 85 18 105/66 96 Room Air Physical Exam Comments: nad, aox3 eomi, perrl, anicteric s1 s2 rrr, no murmurs appreciated ctab no w/r/r abd soft nt/nd +BS LLE erythema improved, 2+ swelling noted cn 2-12 grossly intact Laboratory Results Last 24 Hours Test 05/17/16 18:56 05/17/16 20:42 05/18/16 05:15 05/18/16 08:05 Bedside Glucose 107 mg/dl 109 mg/dl 118 mg/dl White Blood Count 14.80 K/uL Red Blood Count 3.92 M/uL Hemoglobin 12.6 g/dL Hematocrit 38.0 % Mean Corpuscular Volume 96.9 fL Mean Corpuscular Hemoglobin 32.1 pg Mean Corpuscular Hemoglobin Concent 33.2 g/dl Platelet Count 230 K/uL Mean Platelet Volume 10.0 fL Neutrophils (%) (Auto) 87.6 % Lymphocytes (%) (Auto) 7.4 % Monocytes (%) (Auto) 4.5 % Eosinophils (%) (Auto) 0.1 % Basophils (%) (Auto) 0.1 % Neutrophils # (Auto) 12.96 K/uL Lymphocytes # (Auto) 1.10 K/uL Monocytes # (Auto) 0.66 K/uL Eosinophils # (Auto) 0.01 K/uL Basophils # (Auto) 0.02 K/uL RDW Standard Deviation 52.1 fL RDW Coefficient of Variation 14.6 % Immature Granulocyte % (Auto) 0.3 % Immature Granulocyte # (Auto) 0.05 K/uL Sodium Level 136 mmol/L Potassium Level 3.3 mmol/L Chloride Level 101 mmol/L Carbon Dioxide Level 25 mmol/L Anion Gap 10.0 mmol/L Blood Urea Nitrogen 11 mg/dl Creatinine 0.95 mg/dl Est Creatinine Clear Calc Drug Dose 118.2 ml/min Estimated GFR () 83.3 Estimated GFR (Non- 71.8 BUN/Creatinine Ratio 12.0 Random Glucose 109 mg/dl Estimated Average Glucose 111 mg/dl Hemoglobin A1c 5.5 % Calcium Level 8.2 mg/dl Magnesium Level 2.2 mg/dl Total Bilirubin 1.6 mg/dl Aspartate Amino Transf (AST/SGOT) 13 U/L Alanine Aminotransferase (ALT/SGPT) 19 U/L Alkaline Phosphatase 56 U/L Total Protein 7.9 gm/dl Albumin 3.0 gm/dl Globulin 4.9 gm/dl Albumin/Globulin Ratio 0.6 Test 05/18/16 11:42 05/18/16 16:46 Bedside Glucose 108 mg/dl 100 mg/dl Assessment and Plan 1. LLE cellulitis - h/o "staph" infection, rapidity of symptoms however is more consistent with strep - CT extremity without any drainable abscess noted - ID consult noted, now on ceftaroline - ortho consult noted, no surgical intervention planned - will cont to monitor improvement 2. T2DM - glycemic consult - A1C 5.5, well-controlled on home metformin and actos 3. HTN - BP borderline - will resume only on lisinopril tomorrow AM and monitor 4. Hypercholesterolemia - hold fish oil for now, cont statin 5. Anxiety/depression - cont home med lexapro 6. Asthma - stable - cont symbicort 7. dvt ppx
[2016-05-18] MEDS ORDERED: VANCOMYCIN TROUGH SCH (21:30)
[2016-05-18] MEDS: PRAVASTATIN SOD 40 MG TAB PO SCH (21:56)
[2016-05-18] MEDS: ENOXAPARIN 40 MG/0.4 ML SYR SQ SCH (21:57)
[2016-05-18 23:05] VITALS: BP 102/70; PULSE 84; TEMP 37.4; O2SAT 97
[2016-05-18 23:54] VITALS: O2SAT 97
[2016-05-19] MEDS: CEFTAROLINE FOSAMIL INJ 600 MG in SODIUM CHLORIDE 0.9% 250ML 250 ML IV SCH ×2 (02:06→13:59)
[2016-05-19 06:19] LABS: BUN/CREATININE RATIO 11.7 (10-20); CALCIUM 7.7 mg/dl (8.5-10.1); CREATININE 0.84 mg/dl (0.60-1.20); MAGNESIUM 2.6 mg/dl (1.8-2.4); POTASSIUM 3.4 mmol/L (3.5-5.1)
[2016-05-19 07:06] VITALS: BP 111/78; PULSE 71; TEMP 36.7; O2SAT 98
[2016-05-19 07:30] VITALS: O2SAT 98
[2016-05-19] MEDS ORDERED: POTASSIUM CHLORIDE 20 MEQ TABCR PO ONE ×2 (08:00→11:00)
--- NOTE | 2016-05-19 08:11 | Orthopedic Progress Note ---
Orthopedic Progress Note Date of Service May 19, 2016. Subjective Reports: feeling well, Denies: SOB, calf pain, chest pain, light headedness, nausea / vomiting Additional Notes: Patient notes still some pain in her foot. It is around where her blisters are on the lateral aspect of her foot as well as medial hindfoot. She states the redness has seemed to go down. Objective calves soft nontender, N/V intact, capillary refill less than 2 sec., A&O x3, toes mobile Decreased L LE edema and redness. Receding erythema from line of demarcation. Superficial skin blister medial left heel with mild ecchymosis. Eschar lateral left foot of 5th toe. Date Time Temp Pulse Resp B/P Pulse Ox O2 Delivery O2 Flow Rate FiO2 05/19/16 07:06 36.7 71 18 111/78 98 Room Air 05/18/16 23:54 97 Room Air 05/18/16 23:05 37.4 84 18 102/70 97 Room Air 05/18/16 16:00 Room Air 05/18/16 14:59 36.8 77 18 112/75 98 Room Air Assessment & Plan Assessment: Left LE cellulitis-improving on IV anbx Superficial skin blister medial left heel and lateral left foot. Plan: Cont IV anbx Continue to follow w/ you to monitor for abscess formation. Minimize WB L LE.
--- NOTE | 2016-05-19 08:33 | Progress Note ---
Subjective Date of Service: May 19, 2016. Subjective Pt evaluation today including: conversation w/ patient, physical exam, lab review, review of studies, review of inpatient medication list concerns and questions addressed. leg swelling unchanged, but now has blistering noted redness better no further chills, no fevers she reports no dysuria, hematuria Problem List Medical Problems: (1) Left leg cellulitis Status: Acute (2) Sepsis Status: Acute Review of Systems All Other Systems: Reviewed and Negative Medications Acetaminophen (Tylenol Tab) 650 mg Q4H PRN PO Last administered on 05/18/16 05:08; Admin Dose 650 MG; Start 05/17/16 at 10:45; Stop 06/16/16 at 10:44 Budesonide/ Formoterol Fumarate (Symbicort 80/ 4.5 Inh) 2 puffs QAM INH Last administered on 05/19/16 09:19; Admin Dose 2 PUFFS; Start 05/18/16 at 09:00; Stop 06/17/16 at 08:59 Ceftaroline Fosamil/Sodium Chloride (Teflaro Inj/Nss 250ml) 270 ml @ 250 mls/ hr Q12@0200,1400 IV Last administered on 05/19/16 13:59; Admin Dose 250 MLS/HR ; Start 05/17/16 at 14:30; Stop 05/27/16 at 14:29 Dextrose (Dextrose 50% 50ML Syringe) 25-50ML OF 50% DW IV FOR... UD PRN IV; Start 05/17/16 at 10:45; Stop 06/16/16 at 10:44 Enoxaparin Sodium (Lovenox Inj) 40 mg Q24H SQ Last administered on 05/18/16 21: 57; Admin Dose 40 MG; Start 05/17/16 at 21:00; Stop 06/16/16 at 20:59 Escitalopram Oxalate (Lexapro Tab) 10 mg QAM PO Last administered on 05/19/16 09:20; Admin Dose 10 MG; Start 05/18/16 at 09:00; Stop 06/17/16 at 08:59 Glucagon (Glucagon Inj) 1 mg UD PRN SQ; Start 05/17/16 at 10:45; Stop 06/16/16 at 10:44 Glucose (Glucose 40% Gel) 15-30 GRAMS 15 GRAMS... UD PRN PO; Start 05/17/16 at 10:45; Stop 06/16/16 at 10:44 Glucose (Glucose Chew Tab) 4-8 Tablets 4 Tabl... UD PRN PO; Start 05/17/16 at 10:45; Stop 06/16/16 at 10:44 Insulin Aspart (novoLOG ASPART) SLIDING SCALE If C... ACHS SC Last administered on 05/19/16 09:27; Admin Dose 3 UNITS; Start 05/17/16 at 21:00; Stop 06/16/16 at 11:59 Ioversol (Optiray 320) 125 ml UD PRN IV; Start 05/17/16 at 10:45; Stop at 10:44 Lisinopril (Zestril Tab) 10 mg QAM PO Last administered on 05/19/16 09:19; Admin Dose 10 MG; Start 05/19/16 at 09:00; Stop 06/18/16 at 08:59 Morphine Sulfate (MoRPHine SULFATE INJ) 2 mg Q4H PRN IV Last administered on 23:30; Admin Dose 2 MG; Start 05/17/16 at 10:45; Stop 05/31/16 at 10:44 Morphine Sulfate (MoRPHine SULFATE INJ) 4 mg Q4H PRN IV; Start 05/17/16 at 10: 45; Stop 05/31/16 at 10:44 Multivitamins/ Minerals (Multivitamin W/ Minerals Tab) 1 tab QAM PO Last administered on 05/19/16 09:20; Admin Dose 1 TAB; Start 05/18/16 at 09:00; Stop 06/17/16 at 08:59 Pravastatin Sodium 40 mg 40 mg QPM PO Last administered on 05/18/16 21:56; Admin Dose 40 MG; Start 05/17/16 at 21:00; Stop 06/16/16 at 20:59 Objective Vital Signs Date Time Temp Pulse Resp B/P Pulse Ox O2 Delivery O2 Flow Rate FiO2 05/19/16 07:06 36.7 71 18 111/78 98 Room Air 05/18/16 23:54 97 Room Air 05/18/16 23:05 37.4 84 18 102/70 97 Room Air 05/18/16 16:00 Room Air 05/18/16 14:59 36.8 77 18 112/75 98 Room Air Physical Exam Comments: nad, aox3 eomi, perrl, anicteric s1 s2 rrr, no murmurs appreciated ctab no w/r/r abd soft nt/nd +BS LLE 1+ edema, erythema improved, blisters noted Laboratory Results Last 24 Hours Test 05/18/16 11:42 05/18/16 16:46 05/18/16 20:50 05/19/16 05:17 Bedside Glucose 108 mg/dl 100 mg/dl 113 mg/dl Sodium Level 139 mmol/L Potassium Level 3.4 mmol/L Chloride Level 106 mmol/L Carbon Dioxide Level 26 mmol/L Anion Gap 7.0 mmol/L Blood Urea Nitrogen 10 mg/dl Creatinine 0.84 mg/dl Est Creatinine Clear Calc Drug Dose 133.6 ml/min Estimated GFR () 96.6 Estimated GFR (Non- 83.3 BUN/Creatinine Ratio 11.7 Random Glucose 97 mg/dl Calcium Level 7.7 mg/dl Magnesium Level 2.6 mg/dl Test 05/19/16 08:21 Bedside Glucose 101 mg/dl SPEC #: [id number] CHRISTELLE: 05/17/16 STATUS: COMP REQ #: [id number] RECD: 05/17/[address]: Maddison Johnston M.D. SOURCE: JOHNIE, CC ENTR: 05/17/[address] [facility] [address]: Mike Salas M.D. [facility]: ORDERED: CULTURE URCLEAN Procedure Result Verified Site URINE CULTURE Final 05/19/16-814 Organism 1 GROUP B BETA STREP COLONY COUNT >100,000 CFU/ml SENS NO SENSITIVITY TO FOLLOW +MIX PLUS MODERATE COUNTS OTHER MIXED JUAQUIN Assessment and Plan 1. LLE cellulitis - h/o "staph" infection, rapidity of symptoms however is more consistent with strep - CT extremity without any drainable abscess noted - ID consult noted, now on ceftaroline - ortho consult noted, no surgical intervention planned - will cont to monitor improvement - await 2. Strep UTI - ceftaroline should cover this as well, although not officially indicated for it 3. T2DM - glycemic consult - A1C 5.5, well-controlled on home metformin and actos - she has also been trying to exercise and eat better and has recently lost about 40 lbs - will need at least a yearly podiatry follow-up and ophtho follow-up for routine diabetes care - wound care consult 4. HTN - BP remains borderline low normal - weight loss could have certainly improved her HTN - will resume only on lisinopril and stop hctz 5. Hypercholesterolemia - hold fish oil for now, cont statin 6. Anxiety/depression - cont home med lexapro 7. Asthma - stable - cont symbicort 8. dvt ppx
[2016-05-19] MEDS: LISINOPRIL 10 MG TAB PO SCH (09:19)
[2016-05-19] MEDS: BUDESONIDE/FORMOTEROL FUMARATE 80/4.5 60 PUFFS/INHALER INH SCH (09:19)
[2016-05-19] MEDS: CEROVITE ADV FORMULA TAB PO SCH (09:20)
[2016-05-19] MEDS: ESCITALOPRAM OXALATE 10 MG TAB PO SCH (09:20)
[2016-05-19] MEDS: INSULIN ASPART 100 UNITS/ML 3 ML PEN SC SCH ×4 (09:27→21:00)
[2016-05-19 15:00] VITALS: BP 109/68; PULSE 70; TEMP 36.8; O2SAT 98
[2016-05-19] MEDS: PRAVASTATIN SOD 40 MG TAB PO SCH (21:58)
[2016-05-19] MEDS: ENOXAPARIN 40 MG/0.4 ML SYR SQ SCH (21:59)
[2016-05-19] MEDS: MoRPHine SULFATE 2 MG/ML CARP IV PRN (22:05)
[2016-05-19 23:05] VITALS: BP 98/63; PULSE 72; TEMP 36.8; O2SAT 94
[2016-05-20] MEDS: CEFTAROLINE FOSAMIL INJ 600 MG in SODIUM CHLORIDE 0.9% 250ML 250 ML IV SCH (02:46)
[2016-05-20 07:10] LABS: BASO % 0.3 %; BASO ABS # 0.03 K/uL (0-0.2); COMPLETE YES; EOS % 1.3 %; HEMATOCRIT 35.1 % (37-47); IG% 0.3 %; LYMPH % 15.4 %; LYMPH ABS # 1.83 K/uL (1.2-3.4); MEAN CELL VOLUME 97.2 fL (80-100); MEAN CORPUSCULAR HEMOGLOBIN 31.9 pg (25-34); MEAN CORPUSCULAR HGB CONC 32.8 g/dl (32-36); MEAN PLATELET VOLUME 9.7 fL (7.4-10.4); MONO % 7.3 %; NEUT % 75.4 %; PLATELET COUNT 258 K/uL (130-400); RED BLOOD COUNT 3.61 M/uL (4.2-5.4); WHITE BLOOD COUNT 11.87 K/uL (4.8-10.8)
[2016-05-20 07:35] LABS: BUN/CREATININE RATIO 14.9 (10-20); CREATININE 0.88 mg/dl (0.60-1.20); POTASSIUM 3.7 mmol/L (3.5-5.1)
[2016-05-20 07:58] VITALS: BP_SYST 108; BP_SYST 122; BP_DIAS 76; BP_DIAS 80; PULSE 61; PULSE 69; TEMP 36.6; TEMP 36.8; O2SAT 94; O2SAT 98
[2016-05-20 08:10] VITALS: O2SAT 98
[2016-05-20] MEDS: BUDESONIDE/FORMOTEROL FUMARATE 80/4.5 60 PUFFS/INHALER INH SCH (08:55)
[2016-05-20] MEDS: CEROVITE ADV FORMULA TAB PO SCH (08:56)
[2016-05-20] MEDS: ESCITALOPRAM OXALATE 10 MG TAB PO SCH (08:56)
[2016-05-20] MEDS: LISINOPRIL 10 MG TAB PO SCH (09:00)
[2016-05-20 09:02] VITALS: BP 104/68; PULSE 76
[2016-05-20] MEDS: INSULIN ASPART 100 UNITS/ML 3 ML PEN SC SCH (09:05)
[2016-05-20] MEDS ORDERED: CEPH-571 PO (09:54)
[2016-05-20] MEDS ORDERED: SULF800T23 PO (09:54)
--- NOTE | 2016-05-20 10:03 | Discharge Instructions ---
Discharge Instructions Date of Service May 20, 2016. Admission Reason for Admission: Muscle Aches,Back Pain,Leg/Foot Red/Pain Discharge Discharge Diagnosis / Problem: left leg cellulitis (infection of skin/soft tissue) Discharge Goals Goal(s): Decrease discomfort, Increase independence, Diagnostic testing, Therapeutic intervention Activity Recommendations Activity Limitations: resume your previous activity . Instructions / Follow-Up Instructions / Follow-Up the cellulitis appears to have been due to a resistant strep vs resistant staph (the pattern of infection - with rapid onset, blisters, etc, fits best with strep, as does the strep in your urine, however staph can do this as well - the same antibiotics cover for both) ---you were on ceftalorine in the hospital - this covers multiple antibiotics, but the main use for it in you was that it does a good job covering resistant staph and strep ---we'll transition you to two oral antibiotics - Bactrim twice a day (next dose bedtime tonight) and Keflex three times a day (next dose this afternoon, then dosing morning, midday, bedtime) - for 10 more days - as per Dr Gross's recommendations --as we discussed - the infection was the reason for the inflammation, but the inflammation itself is now a separate thing that will likely take weeks to get better. we'll get you set up for edema management at physical therapy ( probably John ZUNIGA, our nurse navigator is working on setting this up) to facilitate getting things better faster, and better as fast as possible; we'll also write a prescription for a walking boot since right now you can't really fit in a shoe. --of course if redness/swelling worsens we'd want you seen right away ( infections tend to track upwards, so pay most attention to the area of redness highest up on your kaufman. the redness in your calf/ankle might wax/wane depending on how long your foot is down/how long you're sitting -- so you're OK with "watchful waiting" if the redness down low seems more dark/swollen, you've been sitting for a while, and it improves with movement or elevation) ---walk at least 5-10 minutes out of the hour, and wear compression (once PT starts it) all the time; elevation can help reduce the swelling too just by gravity. ---follow up with Dr Salas // [facility] later this week as a "housekeeping" measure, try to reduce the meloxicam (mobic) to daily as needed; and see how it works to occasionally substitute tylenol for the meloxicam. as far as anti-inflammatories go, mobic is one of the best/safest, but we're seeing more and more data that anti-inflammatories cause more chronic , vascular disease related harm than we previously realized. (there's no signs of problems at this time - it's more of a "moving forward" keeping you safe thing) Current Hospital Diet Patient's current hospital diet: Diabetes Type 2 Diet, Low Sodium Diet (2gm Na) Discharge Diet Recommended Diet: Diabetes Type 2 Diet Pending Studies Studies pending at discharge: no Laboratory Results Hemoglobin A1c Test 05/18/16 05:15 Range/Units Estimated Average Glucose 111 mg/dl Hemoglobin A1c 5.5 4.5-5.6 % Medical Emergencies . Who to Call and When: Medical Emergencies: If at any time you feel your situation is an emergency, please call 911 immediately. . Non-Emergent Contact Non-Emergency issues call your: Primary Care Provider . . "Provider Documentation" section prepared by Jarocho Caceres. VTE Core Measure Inpt VTE Proph given/why not?: Enoxaparin (Lovenox)SQ
--- NOTE | 2016-05-20 10:45 | Infectious Disease Progress Nt ---
Progress Note Date of Service May 20, 2016. Subjective Pt evaluation today including: conversation w/ patient, physical exam, chart review, lab review, review of studies, conversation w/ payroll consultant, review of inpatient medication list Patient feeling much better. Leg pain decreased. Erythema still prominent but no progression. Remains afebrile. Blood cultures negative, urine with group B strep. All Other Systems: Reviewed and Negative Medications Current Inpatient Medications Medications (Trade) Dose Ordered Sig/Alethea Route Start Time Stop Time Status Last Admin Dose Admin Ioversol (Optiray 320) 125 ml UD PRN IV 05/17/16 10:45 05/21/16 10:44 Enoxaparin Sodium (Lovenox Inj) 40 mg Q24H SQ 05/17/16 21:00 06/16/16 20:59 05/19/16 21:59 40 MG Acetaminophen (Tylenol Tab) 650 mg Q4H PRN PO 05/17/16 10:45 06/16/16 10:44 05/18/16 05:08 650 MG Glucose (Glucose 40% Gel) 15-30 GRAMS 15 GRAMS... UD PRN PO 05/17/16 10:45 06/16/16 10:44 Glucose (Glucose Chew Tab) 4-8 Tablets 4 Tabl... UD PRN PO 05/17/16 10:45 06/16/16 10:44 Dextrose (Dextrose 50% 50ML Syringe) 25-50ML OF 50% DW IV FOR... UD PRN IV 05/17/16 10:45 06/16/16 10:44 Glucagon (Glucagon Inj) 1 mg UD PRN SQ 05/17/16 10:45 06/16/16 10:44 Morphine Sulfate (MoRPHine SULFATE INJ) 2 mg Q4H PRN IV 05/17/16 10:45 05/31/16 10:44 05/19/16 22:05 2 MG Morphine Sulfate (MoRPHine SULFATE INJ) 4 mg Q4H PRN IV 05/17/16 10:45 05/31/16 10:44 Budesonide/ Formoterol Fumarate (Symbicort 80/ 4.5 Inh) 2 puffs QAM INH 05/18/16 09:00 06/17/16 08:59 05/20/16 08:55 2 PUFFS Escitalopram Oxalate (Lexapro Tab) 10 mg QAM PO 05/18/16 09:00 06/17/16 08:59 05/20/16 08:56 10 MG Multivitamins/ Minerals (Multivitamin W/ Minerals Tab) 1 tab QAM PO 05/18/16 09:00 06/17/16 08:59 05/20/16 08:56 1 TAB Pravastatin Sodium 40 mg 40 mg QPM PO 05/17/16 21:00 06/16/16 20:59 05/19/16 21:58 40 MG Ceftaroline Fosamil/Sodium Chloride (Teflaro Inj/Nss 250ml) 270 ml @ 250 mls/hr Q12@0200,1400 IV 05/17/16 14:30 05/27/16 14:29 05/20/16 02:46 250 MLS/HR Insulin Aspart (novoLOG ASPART) SLIDING SCALE If C... ACHS SC 05/17/16 21:00 06/16/16 11:59 05/20/16 09:05 3 UNITS Lisinopril (Zestril Tab) 10 mg QAM PO 05/19/16 09:00 06/18/16 08:59 05/19/16 09:19 10 MG Objective Vital Signs Date Time Temp Pulse Resp B/P Pulse Ox O2 Delivery O2 Flow Rate FiO2 05/20/16 09:02 76 104/68 05/20/16 08:10 98 Room Air 05/20/16 08:10 Room Air 05/20/16 07:58 36.8 69 16 108/76 98 Room Air 05/19/16 23:10 Room Air 05/19/16 23:05 36.8 72 18 98/63 94 Room Air 05/19/16 16:15 Room Air 05/19/16 15:00 36.8 70 18 109/68 98 Room Air Physical Exam General Appearance: WD/WN, no apparent distress, + obese Eyes: normal inspection, EOMI, sclerae normal ENT: normal ENT inspection, hearing grossly normal, pharynx normal Neck: supple, no adenopathy, trachea midline Respiratory/Chest: lungs clear, normal breath sounds, no respiratory distress Cardiovascular: regular rate, rhythm, no gallop, no murmur Abdomen: normal bowel sounds, non tender, soft, no organomegaly Extremities: normal capillary refill, + inflammation, + swelling Neurologic/Psychiatric: alert, normal mood/affect, oriented x 3 Skin: normal color, no rash, + pertinent finding (intense erythema left leg, some regression. Less swollen and tender.) Lymphatic: no adenopathy Laboratory Results RUN DATE: 05/19/16 [facility] PAGE 1 RUN TIME: 814 Specimen Inquiry PATIENT: MONICA BOWERS LOC: W U # : [id number] AGE/SX: 45/F ROOM: [facility] REG : 05/17/[address]: Olimpia Escamilla MD : [id number] BED: 1 DIS : STATUS: ADM IN TLOC: SPEC #: [id number] CHRISTELLE: 05/17/16 STATUS: COMP REQ #: [id number] RECD: 05/17/[address]: Maddison Johnston M.D. SOURCE: CRISTOPHER JETT ENTR: 05/17/[address]: Mike Salas M.D. [facility]: ORDERED: CULTURE URCLEAN Procedure Result Verified Site URINE CULTURE Final 05/19/16-15 Organism 1 GROUP B BETA STREP COLONY COUNT >100,000 CFU/ml SENS NO SENSITIVITY TO FOLLOW +MIX PLUS MODERATE COUNTS OTHER MIXED JUAQUIN Last 24 Hours Test 05/19/16 11:24 05/19/16 17:06 05/19/16 20:41 05/20/16 07:00 Bedside Glucose 94 mg/dl 94 mg/dl 106 mg/dl White Blood Count 11.87 K/uL Red Blood Count 3.61 M/uL Hemoglobin 11.5 g/dL Hematocrit 35.1 % Mean Corpuscular Volume 97.2 fL Mean Corpuscular Hemoglobin 31.9 pg Mean Corpuscular Hemoglobin Concent 32.8 g/dl Platelet Count 258 K/uL Mean Platelet Volume 9.7 fL Neutrophils (%) (Auto) 75.4 % Lymphocytes (%) (Auto) 15.4 % Monocytes (%) (Auto) 7.3 % Eosinophils (%) (Auto) 1.3 % Basophils (%) (Auto) 0.3 % Neutrophils # (Auto) 8.94 K/uL Lymphocytes # (Auto) 1.83 K/uL Monocytes # (Auto) 0.87 K/uL Eosinophils # (Auto) 0.16 K/uL Basophils # (Auto) 0.03 K/uL RDW Standard Deviation 52.2 fL RDW Coefficient of Variation 14.6 % Immature Granulocyte % (Auto) 0.3 % Immature Granulocyte # (Auto) 0.04 K/uL Sodium Level 140 mmol/L Potassium Level 3.7 mmol/L Chloride Level 106 mmol/L Carbon Dioxide Level 24 mmol/L Anion Gap 10.0 mmol/L Blood Urea Nitrogen 13 mg/dl Creatinine 0.88 mg/dl Est Creatinine Clear Calc Drug Dose 127.6 ml/min Estimated GFR () 91.3 Estimated GFR (Non- 78.8 BUN/Creatinine Ratio 14.9 Random Glucose 97 mg/dl Calcium Level 8.0 mg/dl Test 05/20/16 07:48 Bedside Glucose 97 mg/dl Assessment and Plan Left leg cellulitis in diabetic female, responding well to IV ceftaroline. At this point, think that patient can be transitioned to oral Abx. Have recommended Bactrim plus cephalexin. Discussed with Dr. Caceres.
[2016-05-20 10:46] VITALS: BP 104/68; PULSE 76; TEMP 36.8; O2SAT 98
--- NOTE | 2016-05-20 20:22 | Discharge Summary ---
Discharge Summary Date of Service May 20, 2016. Discharge Summary Admission Date: May 17, 2016 at 10:48 Discharge Date: May 20, 2016 Discharge Disposition: Home Principal Diagnosis: LLE cellulitis Procedures: CT, US without drainable abscess or DVT Consultations: ID Medication Reconciliation New Medications: Cephalexin (Keflex) 500 Mg Cap 1 CAP PO TID for 10 Days, #30 CAP Sulfa/Trimethoprim (Bactrim Ds 800MG/160MG) Tab 1 TAB PO BID, #20 TAB Continued Medications: Budesonide/Formoterol Fumarate (Symbicort 80/4.5 Inhaler) Aero 2 PUFFS INH QAM, INHALER Cinnamon (Cinnamon) 500 Mg Cap 1 MG PO BID Escitalopram (Lexapro) 10 Mg Tab 10 MG PO QAM, TAB Fish Oil (Bisbee-3) 1 Ea Cap 1 CAP PO BID, CAP [place] C- (Glucosamine Chondroitin) 1 Tab Tab 1 TAB PO DAILY Hctz/Lisinopril (Lisinopril/Hctz 10/12.5 Mg) 1 Ea Tab 1 TAB PO QPM, TAB Meloxicam (Meloxicam) 15 Mg Tab 15 MG PO QAM, #90 Metformin Hcl (Glucophage) 500 Mg Tab 1000 MG PO BID, TAB Multivitamins/Minerals (Mvi With Minerals) Tab 1 TAB PO QAM, TAB Pioglitazone Hcl (Pioglitazone Hcl) 45 Mg Tab 45 MG PO QPM Pravastatin Sodium (Pravastatin Sodium) 40 Mg Tab 40 MG PO QPM, #90 Discharge Exam Physical Exam: General Appearance: no apparent distress Eyes: EOMI ENT: hearing grossly normal Neck: trachea midline Respiratory/Chest: no respiratory distress, no accessory muscle use Extremities: normal inspection 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 LLE cellulitis -improved on ceftalorine -stable for transition to home - d/w ID - bactrim + keflex 1a. LLE edema -due to above, but with findings characteristic of venous insufficiency - will have managed by edema PT to reduce swelling and hopefully reduce chronicity some. d/w pt frankly 2. Strep UTI - abx for cellulitis will cover 3. T2DM - A1c 5.5 on home meds - d/c on same - could consider dropping TZD 4. HTN - home on home meds, outpt f/u 5. Hypercholesterolemia - hold fish oil for now, cont statin 6. Anxiety/depression - cont home med lexapro 7. Asthma - stable - cont symbicort stable for home Total Time Spent: Greater than 30 minutes This includes examination of the patient, discharge planning, medication reconciliation, and communication with other providers. Discharge Instructions Please refer to the electronic Patient Visit Report (Discharge Instructions) for additional information. Additional Copies To Mike Salas M.D.
[2016-06-04] MEDS ORDERED: CEPH-571 PO (09:03)
== END 2016-05-20 12:20 | disposition home or self-care (01) | DRG 603 ==
LOC: ENRESERVDT → ENRESERVTM → C.EDB 06:12 → C.MSW 10:48
PROVIDERS: ADMIT Internal Medicine; ATTEND Family Medicine
DX: L03.116 Cellulitis of left lower limb (principal); N39.0 Urinary tract infection, site not specified; Z68.43 Body mass index [BMI] 50.0-59.9, adult; Z83.3 Family history of diabetes mellitus; E66.01 Morbid (severe) obesity due to excess calories; J45.909 Unspecified asthma, uncomplicated; I10 Essential (primary) hypertension; E78.00 Pure hypercholesterolemia, unspecified; F32.9 Major depressive disorder, single episode, unspecified; I87.2 Venous insufficiency (chronic) (peripheral); B95.5 Unspecified streptococcus as the cause of diseases classified elsewhere; E11.9 Type 2 diabetes mellitus without complications; B95.8 Unspecified staphylococcus as the cause of diseases classified elsewhere

== ENCOUNTER → 2016-07-30 | Outpatient (CLI) | payer BC ==
[~2016-07-30] MED LIST changes: +CEPH-571 PO; -CETI10TA10 PO; -CIPR-255 PO; -MELO15TA4 PO; +PIOG1TAB20 PO
--- NOTE | 2016-07-30 15:35 | DIAGNOSTIC IMAGING REPORT ---
LEFT FINGER(S) MIN 2 VIEWS ROUTINE CLINICAL HISTORY: Left fifth digit pain following injury. COMPARISON: None FINDINGS: Alignment of the left fifth finger is in anatomic. No acute fracture is identified. A ring on the left fourth finger is noted. IMPRESSION: No acute fracture or dislocation of the left fifth finger. Electronically signed by: Davi Shell M.D. 07/30/2016 3:33 PM Dictated Date/Time: 07/30/2016 3:30 PM
== END | disposition home or self-care (01) ==
LOC: C.RAD1850 14:58
PROVIDERS: ATTEND Family Medicine
DX: S69.90XA Unspecified injury of unspecified wrist, hand and finger(s), initial encounter (principal); X58.XXXA Exposure to other specified factors, initial encounter

== ENCOUNTER 2023-11-03 02:33 | Inpatient (IN) ==
[2023-11-03 02:54] LABS: Hematocrit (blood only) 33.7 % (37.0-47.0); Hemoglobin 11.1 g/dl (12.0-16.0); Mean Corpuscular Hemoglobin 31.9 pg (25.0-34.0); Mean Corpuscular Hgb Conc 32.9 g/dL (32.0-36.0); Mean Corpuscular Volume 96.8 fL (80.0-100.0); Mean Platelet Volume 9.9 fL (9.4-12.4); Platelet Count 315 K/uL (130-400); RDW Coefficient of Variation 14.7 % (11.5-14.5); RDW Standard Deviation 51.9 fL (36.4-46.3); Red Blood Count 3.48 M/uL (4.20-5.40); White Blood Count 29.42 K/ul (4.8-10.8)
[2023-11-03] MEDS ORDERED: VANCOMYCIN CONSULT ACTIVE PRN ×2 (03:03→05:03)
--- NOTE | 2023-11-03 03:08 | Emergency Department Note ---
History of Present Illness General Chief complaint: Illness Stated complaint: ILLNESS, NAUSEA, FULL BODY PAIN Time Seen by Provider: 11/03/23 02:34 History of Present Illness This is a 53-year-old female presenting to the emergency department via EMS from home for evaluation of bodyaches, nausea, and generalized pain. Patient was seen and evaluated at [facility] urgent care yesterday for a diabetic foot ulcer/infection and started on doxycycline. Patient has a history of sepsis from similar episodes in the past. She does follow with the wound clinic and podiatry. She states that 3 weeks ago her right third toe had a callus removed through podiatry, and now it is infected. This is how she felt when she had sepsis in the past. Patient did take Tylenol with mild improvement of bodyaches. She rates her overall discomfort a 10/10. Home Medications Medication Instructions Recorded Confirmed Type antiarthritic combination no.2 900 900 mg PO QAM 02/17/18 11/03/23 History mg tablet (glucosamine-chondroitin) cinnamon bark 500 mg capsule 500 mg PO QAM 02/17/18 11/03/23 History (Cinnamon) escitalopram oxalate 10 mg tablet 10 mg PO QAM 02/17/18 11/03/23 History (Lexapro) meloxicam 15 mg tablet 15 mg PO QAM 02/17/18 11/03/23 History metformin 1,000 mg tablet 1,000 mg PO BID 02/17/18 11/03/23 History multivitamin (Daily Multi-Vitamin 1 tab PO QAM 02/17/18 11/03/23 History tablet) coenzyme Q10 100 mg capsule 100 mg PO QAM 04/16/19 11/03/23 History (CoQ-10) lisinopril 10 1 tab PO QAM 04/16/19 11/03/23 History mg-hydrochlorothiazide 12.5 mg tablet pravastatin 40 mg tablet 40 mg PO QAM 04/16/19 11/03/23 History budesonide 160 mcg-glycopyr 9 2 inh inhalation BID 03/25/22 11/03/23 History mcg-formot 4.8 mcg/actuation HFA inhaler (Breztri Aerosphere) tirzepatide 5 mg/0.5 mL 5 mg subcut WK 01/27/23 11/03/23 History subcutaneous pen injector (Mounjaro) doxycycline hyclate 100 mg tablet 100 mg PO BID #20 tabs 11/02/23 11/03/23 Rx omega-3 fatty acids 1,000 mg 1,000 mg PO QAM 11/03/23 11/03/23 History capsule Allergies Allergy/AdvReac Type Severity Reaction Status Date / Time aspirin Allergy Severe LIPS SWELL Verified 11/03/23 03:10 Past Med/Surg History Problem List (Updated 11/03/23 @ 05:09 by Billy Reyes PA-C) Diabetic foot infection (Acute) Sepsis (Acute) Diabetic ulcer of toe of left foot associated with diabetes mellitus due to underlying condition, with fat layer exposed (Acute) Diabetic ulcer of left foot associated with diabetes mellitus due to underlying condition, limited to breakdown of skin (Acute) Lower extremity edema (Chronic) Traumatic open wound of right lower leg (Acute) Diabetic ulcer of left foot associated with type 2 diabetes mellitus, limited to breakdown of skin (Acute) Puncture wound (Acute) Diabetic ulcer of left foot associated with type 2 diabetes mellitus, with fat layer exposed (Acute) Encounter for pre-operative examination Hypertension (Chronic) Hemorrhoids (Chronic) S/P cholecystectomy (Chronic) Left ureteral calculus (Chronic) Diabetic peripheral neuropathy associated with type 2 diabetes mellitus (Chronic) Loss of protective sensation of skin of foot (Chronic) Personal history of diabetic foot ulcer (Chronic) Edema (Chronic) Foot deformity (Chronic) Diabetic ulcer of toe of left foot associated with type 2 diabetes mellitus, limited to breakdown of skin (Acute) Diabetic ulcer of left foot associated with type 2 diabetes mellitus, limited to breakdown of skin (Acute) Diabetic ulcer of left foot associated with type 2 diabetes mellitus, with fat layer exposed (Acute) COVID-19 (Acute) Heart murmur (Chronic) follows with PCP Arthritis (Chronic) Medical History Morbid obesity with BMI of 60.0-69.9, adult History of kidney stones Diabetes mellitus, type 2 History of COVID-19 diagnosed 02/02/2020 @ [facility]--loss sense of taste/smell, achy, loss appetite, headache, sore throat Ureteral stone Diabetes mellitus with diabetic polyneuropathy Asthma inhaler daily Depression HTN (hypertension) Hyperlipidemia Surgical History History of arthroscopy of right knee History of wisdom tooth extraction History of cholecystectomy Family History Father Diabetes Brother Diabetes Sister Nephrolithiasis Other Cancer Heart disease Hypertension Lung disease No family history of adverse response to anesthesia Social History Smoking Status: Never smoker Second Hand Exposure: Yes (parents smoked); Do You Dip or Chew Tobacco: No; Hx Alcohol Use: No Hx Substance Use: No Preferred Language: Serbian Communication Ability: Effective Visual Impairment: No Limitations Hearing Ability: Normal Residential Nurse Required: No Beliefs That Will Affect Care: None marital status: Current Living Situation: Spouse Current Living Situation Comment: Spouse able to assist with dressing changes current occupational status: employed current occupation: Skills Feels Safe at Home: Yes Assistive Devices: Contacts and Glasses Review of Systems A total of 10 systems reviewed and were otherwise negative Physical Exam Vital Signs Vital Signs - 24 hr 11/03/23 02:42 11/03/23 02:45 11/03/23 02:47 Temperature Temperature Source Pulse Rate 102 H 109 H Pulse Rate [Apical] 104 H Pulse Rate from SpO2 Sensor 109 H Respiratory Rate 27 H 20 Respiratory Effort / Characteristics Non-Labored Spontaneous Respiratory Depth Normal Respiratory Pattern Regular Blood Pressure Blood Pressure [Left Arm] 94/56 L Blood Pressure Mean Blood Pressure Mean [Left Arm] 68 Pulse Oximetry 96 97 Oxygen Delivery Method Room Air Sepsis Recent Fever Within 48 Hours Sepsis New/Unexplained Change in Mental Status Sepsis Action Taken by Nursing 11/03/23 02:49 11/03/23 02:51 11/03/23 02:52 Temperature 37.3 C Temperature Source Oral Pulse Rate 108 H 99 H Pulse Rate [Apical] Pulse Rate from SpO2 Sensor 100 H Respiratory Rate 20 31 H Respiratory Effort / Characteristics Respiratory Depth Respiratory Pattern Blood Pressure 95/50 L 91/46 L Blood Pressure [Left Arm] Blood Pressure Mean 65 53 Blood Pressure Mean [Left Arm] Pulse Oximetry 96 97 Oxygen Delivery Method Sepsis Recent Fever Within 48 Hours No Sepsis New/Unexplained Change in Mental Status No Sepsis Action Taken by Nursing Adv Provider Notified 11/03/23 03:00 11/03/23 03:09 Temperature Temperature Source Pulse Rate 99 H Pulse Rate [Apical] Pulse Rate from SpO2 Sensor 97 H Respiratory Rate 33 H Respiratory Effort / Characteristics Respiratory Depth Respiratory Pattern Blood Pressure 101/47 L Blood Pressure [Left Arm] Blood Pressure Mean 68 Blood Pressure Mean [Left Arm] Pulse Oximetry 97 Oxygen Delivery Method Sepsis Recent Fever Within 48 Hours Sepsis New/Unexplained Change in Mental Status Sepsis Action Taken by Nursing VITALS: Vitals are noted on the nurse's note and reviewed by myself. Vital signs stable. GENERAL: Morbidly obese white female who appears unwell on presentation. HEAD: Normocephalic atraumatic. HEART: Regular rate and rhythm without murmurs gallops or rubs. LUNGS: Clear to auscultation bilaterally without wheezes, rales or rhonchi. No retractions or accessory muscle use. ABDOMEN: Positive normal bowel sounds x 4. Soft, nontender, without masses or organomegaly. No guarding or rebound tenderness. MUSCULOSKELETAL: The right third toe appears erythematous and cellulitic. This seems to extend into the proximal right lower extremity. No active purulence for culture. NEURO: Patient was alert and oriented to person place and time. CN II through XII grossly intact. Course Administered Medications Vancomycin HCl 2,750 mg/ (Sodium Chloride) 555 mls @ 180 mls/hr IV NOW ONE Stop: 11/03/23 06:07 Last Admin: 11/03/23 03:37 Dose: 180 mls/hr Documented By: MERON Discontinued Medications Piperacillin Sod/Tazobactam Sod (Zosyn) 4.5 gm in 100 mls @ 200 mls/hr IV NOW ONE Stop: 11/03/23 03:32 Last Infusion: 11/03/23 03:50 Dose: Infused Documented By: Admin: 11/03/23 03:13 Dose: 200 mls/hr Documented By: MERON Sodium Chloride (Nss) 1,000 mls @ 999 mls/hr IV .Q1H1M CORIN Stop: 11/03/23 05:04 Last Admin: 11/03/23 04:48 Dose: 999 mls/hr Documented By: Infusion: 11/03/23 04:19 Dose: Infused Documented By: Admin: 11/03/23 03:11 Dose: 999 mls/hr Documented By: MERON Medical Decision Making Differential Diagnosis Differential diagnosis: Etiologies such as viral syndrome, otitis, pharyngitis, pneumonia, influenza, meningitis, urinary tract infection, septic arthritis, soft tissue infectious process, intra-abdominal process, sepsis, bacteremia, as well as others were entertained. Laboratory Data 11/03/23 02:43 11/03/23 02:43 Lab Results 11/03/23 Range/Units 02:43 WBC 29.42 H (4.8-10.8) K/ul RBC 3.48 L (4.20-5.40) M/uL Hgb 11.1 L (12.0-16.0) g/dl Hct 33.7 L (37.0-47.0) % MCV 96.8 (80.0-100.0) fL MCH 31.9 (25.0-34.0) pg MCHC 32.9 (32.0-36.0) g/dL RDW Std Deviation 51.9 H (36.4-46.3) fL RDW Coeff of Radha 14.7 H (11.5-14.5) % Plt Count 315 (130-400) K/uL MPV 9.9 (9.4-12.4) fL Immature Gran % (Auto) 1.2 % Neut % (Auto) 93.1 % Lymph % (Auto) 2.8 % [place] % (Auto) 2.5 % Eos % (Auto) 0.2 % Baso % (Auto) 0.2 % Neut # (Auto) 27.39 H (1.40-6.50) K/uL Lymph # (Auto) 0.83 L (1.20-3.40) K/uL [place] # (Auto) 0.73 H (0.11-0.59) K/uL Eos # (Auto) 0.06 (0.00-0.50) K/uL Baso # (Auto) 0.06 (0.00-0.20) K/uL Immature Gran # (Auto) 0.35 H (0.01-0.20) K/uL Polychromasia 1+ ESR 52 H (0-30) mm/hr Sodium 135 L (136-145) mmol/L Potassium 4.1 (3.5-5.1) mmol/L Chloride 103 (98-107) mmol/L Carbon Dioxide 22 (21-32) mmol/L Anion Gap 10 (3-11) BUN 17 (6-23) mg/dl Creatinine 1.19 (0.6-1.2) mg/dl Est Cr Clr Drug Dosing 96.5 ml/min Est GFR ( Amer) 59.9 ml/min Est GFR (Non-Af Amer) 51.7 ml/min BUN/Creatinine Ratio 14.3 (10-20) Glucose 171 H (70-99(Fasting)) mg/dl Lactate 2.5 H* (0.4-2.0) mmol/L Calcium 8.3 L (8.6-10.3) mg/dl Total Bilirubin 0.7 (0.2-1.0) mg/dl AST 16 (13-39) U/L ALT 13 (7-52) U/L Alkaline Phosphatase 56 (34-104) U/L C-Reactive Protein 5.51 H (0-0.5) mg/dl Total Protein 7.5 (6.0-8.3) gm/dl Albumin 3.9 (3.4-5.0) gm/dl Globulin 3.6 (2.5-4.0) gm/dl Albumin/Globulin Ratio 1.1 (0.9-2) MDM Narrative Physical exam and history were performed. Nursing notes, EMR, and Medication List were personally reviewed. No social concerns were identified as barriers to patients care. Patient appears to have general illness and discomfort bringing her to the ER. On presentation her toe seems quite infected, and there may be transition up into the right lower leg. Some of this is difficult to determine because of the patient's body habitus. Patient is warm to touch, however her vitals are without fever. IV access was established and labs were obtained. Patient's blood work is as above and was reviewed. She has a markedly elevated white count of 29,000. She does not have significant anemia. There is associated left shift with her white count. Lactic, sed rate, and CRP are all elevated. Blood culture x 1 was ordered. The patient was started on vancomycin and Zosyn here in the ER. She was given a fluid bolus for sepsis based on ideal body weight. Overall the patient does not appear well for discharge. Escalation of care is necessary for this patient. Case was discussed with the on-call hospitalist team who agreed to evaluate the patient here in the ER. Please see their dictation for further patient course, plan, and disposition. The chart was completed utilizing [employer] Voice Recognition Software. Grammatical errors, random word insertions, pronoun errors, and incomplete sentences are an occasional consequence of this system due to software limitations, ambient noise, and hardware issues. Any formal questions or concerns about the content, text, or information contained within the body of this dictation should be directly addressed to the provider for clarification. Impression & Plan Sepsis, Diabetic foot infection Discharge Plan Visit Data Chief Complaint: Illness Stated Complaint: ILLNESS, NAUSEA, FULL BODY PAIN ED Provider: Kimberly Gao ED Midlevel Provider: Billy Reyes Discharge Problem: Sepsis, Diabetic foot infection Discharge Instructions Interventions: ED Discharge Assessment Last Done: 11/03/23 04:21
[2023-11-03] MEDS: SODIUM CHLORIDE 0.9% 1,000 ML IV SCH (03:11)
[2023-11-03] MEDS: PIPERACILLIN/TAZOBACTAM 4.5 GM/100 ML BAG IV ONE (03:13)
[2023-11-03 03:15] LABS: Albumin Globulin Ratio 1.1 (0.9-2); Albumin Level 3.9 gm/dl (3.4-5.0); BUN Creatinine Ratio 14.3 (10-20); Bilirubin,Total 0.7 mg/dl (0.2-1.0); C Reactive Protein 5.51 mg/dl (0-0.5); Calcium 8.3 mg/dl (8.6-10.3); Creatinine Clr Calc Pharmacy 96.5 ml/min; Est GFR (African American) 59.9 ml/min; Est GFR (Non-African American) 51.7 ml/min; Globulin 3.6 gm/dl (2.5-4.0); Potassium 4.1 mmol/L (3.5-5.1); Total Protein 7.5 gm/dl (6.0-8.3)
[2023-11-03] MEDS: VANCOMYCIN HCL 2,750 MG in SODIUM CHLORIDE 0.9% 500 ML IV ONE (03:37)
--- NOTE | 2023-11-03 03:43 | History & Physical Report ---
Date of Service November 03, 2023 Assessment & Plan (1) Diabetic foot infection: (2) Sepsis: (3) Hypertension: (4) Diabetic infection of right foot: (5) Cellulitis of right lower extremity: (6) Acute lymphangitis of right lower extremity: (7) Laceration of fifth toe of left foot: (8) Diabetic peripheral neuropathy associated with type 2 diabetes mellitus: (9) Asthma: (10) Hyperlipidemia: (11) Diabetes mellitus, type 2: Plan Diabetic foot infection of right third toe/right lower extremity cellulitis and ascending lymphangitis- Given vancomycin IV and Zosyn IV in the ED Continue antibiotics as daptomycin IV and Zosyn IV Acetaminophen 650 mg by mouth every 6 hours as needed for mild pain or fever Morphine sulfate 2 mg IV every 3 hours as needed for moderate pain Morphine sulfate 4 mg IV every 3 hours as needed for severe pain Consult wound care and podiatry Sepsis due to diabetic infections- Close blood pressure recorded 91/46, received 2 L normal saline bolus from the ED, with improvement to 101/47 Maximum heart rate 109, improved to 81 after IV fluids Maintenance IV fluids: NSS + KCl 20 mill equivalents at 100 mL/h Hypertension- Hold lisinopril/HCTZ until blood pressure recovers Diabetes mellitus- Hold metformin, cinnamon bark and tirzepatide Placed on glargine 8 units subcu twice daily, and NovoLog sliding scale coverage Asthma- Continue outpatient inhaler regimen History of Present Illness Chief Complaint: The patient presents to the emergency department with complaint of her right third toe had a callus removed by podiatry several weeks ago, and she noted about 1 week ago it began to get red and painful even though she has neuropathy there. Today she notes that she injured her left fifth toe when she bumped it on something and has a small laceration there. She has developed significant generalized muscle aches and fatigue, and had some brief nausea developed today as well Primary Care Provider: Ean Mueller MD The patient is a 53-year-old female with a past medical history including diabetes mellitus, chronic lower extremity edema, peripheral neuropathy, history of diabetic foot ulcer, morbid obesity, asthma, hypertension, and hyperlipidemia. She presents to the emergency department with symptoms as noted above. Allergies Allergy/AdvReac Type Severity Reaction Status Date / Time aspirin Allergy Severe LIPS SWELL Verified 11/03/23 03:10 Home Medications Medication Instructions Recorded Confirmed Type antiarthritic combination no.2 900 900 mg PO QAM 02/17/18 11/03/23 History mg tablet (glucosamine-chondroitin) cinnamon bark 500 mg capsule 500 mg PO QAM 02/17/18 11/03/23 History (Cinnamon) escitalopram oxalate 10 mg tablet 10 mg PO QAM 02/17/18 11/03/23 History (Lexapro) meloxicam 15 mg tablet 15 mg PO QAM 02/17/18 11/03/23 History metformin 1,000 mg tablet 1,000 mg PO BID 02/17/18 11/03/23 History multivitamin (Daily Multi-Vitamin 1 tab PO QAM 02/17/18 11/03/23 History tablet) coenzyme Q10 100 mg capsule 100 mg PO QAM 04/16/19 11/03/23 History (CoQ-10) lisinopril 10 1 tab PO QAM 04/16/19 11/03/23 History mg-hydrochlorothiazide 12.5 mg tablet pravastatin 40 mg tablet 40 mg PO QAM 04/16/19 11/03/23 History budesonide 160 mcg-glycopyr 9 2 inh inhalation BID 03/25/22 11/03/23 History mcg-formot 4.8 mcg/actuation HFA inhaler (Breztri Aerosphere) tirzepatide 5 mg/0.5 mL 5 mg subcut WK 01/27/23 11/03/23 History subcutaneous pen injector (Mounjaro) doxycycline hyclate 100 mg tablet 100 mg PO BID #20 tabs 11/02/23 11/03/23 Rx omega-3 fatty acids 1,000 mg 1,000 mg PO QAM 11/03/23 11/03/23 History capsule Past Med/Surg History Problem List (Updated 11/03/23 @ 05:36 by Floyd Washburn MD) Diabetes mellitus, type 2 Hyperlipidemia Asthma inhaler daily Laceration of fifth toe of left foot Acute lymphangitis of right lower extremity Cellulitis of right lower extremity Diabetic infection of right foot Diabetic foot infection (Acute) Sepsis (Acute) Diabetic ulcer of toe of left foot associated with diabetes mellitus due to underlying condition, with fat layer exposed (Acute) Diabetic ulcer of left foot associated with diabetes mellitus due to underlying condition, limited to breakdown of skin (Acute) Lower extremity edema (Chronic) Traumatic open wound of right lower leg (Acute) Diabetic ulcer of left foot associated with type 2 diabetes mellitus, limited to breakdown of skin (Acute) Puncture wound (Acute) Diabetic ulcer of left foot associated with type 2 diabetes mellitus, with fat layer exposed (Acute) Encounter for pre-operative examination Hypertension (Chronic) Hemorrhoids (Chronic) S/P cholecystectomy (Chronic) Left ureteral calculus (Chronic) Diabetic peripheral neuropathy associated with type 2 diabetes mellitus (Chronic) Loss of protective sensation of skin of foot (Chronic) Personal history of diabetic foot ulcer (Chronic) Edema (Chronic) Foot deformity (Chronic) Diabetic ulcer of toe of left foot associated with type 2 diabetes mellitus, limited to breakdown of skin (Acute) Diabetic ulcer of left foot associated with type 2 diabetes mellitus, limited to breakdown of skin (Acute) Diabetic ulcer of left foot associated with type 2 diabetes mellitus, with fat layer exposed (Acute) COVID-19 (Acute) Heart murmur (Chronic) follows with PCP Arthritis (Chronic) Medical History Morbid obesity with BMI of 60.0-69.9, adult History of kidney stones Diabetes mellitus, type 2 History of COVID-19 diagnosed 02/02/2020 @ [facility]--loss sense of taste/smell, achy, loss appetite, headache, sore throat Ureteral stone Diabetes mellitus with diabetic polyneuropathy Asthma inhaler daily Depression HTN (hypertension) Hyperlipidemia Surgical History History of arthroscopy of right knee History of wisdom tooth extraction History of cholecystectomy Family History Father Diabetes Brother Diabetes Sister Nephrolithiasis Other Cancer Heart disease Hypertension Lung disease No family history of adverse response to anesthesia Social History Smoking Status: Never smoker Second Hand Exposure: Yes (parents smoked); Do You Dip or Chew Tobacco: No; Hx Alcohol Use: No Hx Substance Use: No Preferred Language: Thai Communication Ability: Effective Visual Impairment: No Limitations Hearing Ability: Normal Paver Layer Required: No Beliefs That Will Affect Care: None marital status: Current Living Situation: Spouse Current Living Situation Comment: Spouse able to assist with dressing changes current occupational status: employed current occupation: Skills Other Information That Helps Us Care for You: No Feels Safe at Home: Yes Safety Concerns: Feels Safe At This Time Assistive Devices: Glasses Review of Systems Review of Systems: The patient denies chest pain, palpitations, shortness of breath, dyspnea on exertion, cough, sore throat, vomiting, diarrhea , constipation, abdominal pain, pelvic pain, blood in urine or stool, dysuria, urinary frequency or urgency, lightheadedness, dizziness, memory loss, loss of consciousness, rash, abnormal bruising or bleeding, focal or generalized weakness, numbness or tingling in arms, back or neck pain, or night sweats. The review of systems is otherwise negative other than for that already noted above, and at least 10 systems have been reviewed. Physical Exam Physical Exam: The patient is awake, alert and oriented 3, morbidly obese looks very fatigued, complaining of headache, normocephalic and atraumatic, lying in bed and in no acute distress. HEENT--PERRL, EOMI, mucous membranes and oropharynx dry. Neck--supple. No JVD. No bruits. Thyroid normal, trachea midline, no adenopathy. Heart--normal S1 and S2. No murmurs, rubs or gallops. Lungs--clear bilaterally, no respiratory distress, no accessory muscle use. Abdomen--normal bowel sounds and soft. Nontender. Nondistended morbidly obese Extremities--right lower third kaufman with moderate erythema, and ascending lymphangitic pattern to middle third. Trace pitting edema bilaterally. There are diminished but palpable pulses bilaterally Dermatologic--right third toe with erythema, warmth and abrasion. Left fifth toe with abrasion dorsal surface and mild erythema Neurologic--cranial nerves II through XII grossly intact. Rheumatologic--limited exam due to body habitus Psychiatric--normal affect. Results & Data Results & Data Vital Signs (Past 12 Hours) Vital Signs Temp Pulse Pulse Resp BP BP Pulse Ox 11/03/23 02:49 37.3 C 108 H 20 95/50 L 96 11/03/23 02:47 104 H 20 94/56 L 97 11/03/23 02:42 102 H O2 Del Method 11/03/23 02:49 11/03/23 02:47 Room Air 11/03/23 02:42 Laboratory Results Laboratory Results WBC 29.42 K/ul (4.8-10.8) H 11/03/23 02:43 RBC 3.48 M/uL (4.20-5.40) L 11/03/23 02:43 Hgb 11.1 g/dl (12.0-16.0) L 11/03/23 02:43 Hct 33.7 % (37.0-47.0) L 11/03/23 02:43 MCV 96.8 fL (80.0-100.0) 11/03/23 02:43 MCH 31.9 pg (25.0-34.0) 11/03/23 02:43 MCHC 32.9 g/dL (32.0-36.0) 11/03/23 02:43 RDW Std Deviation 51.9 fL (36.4-46.3) H 11/03/23 02:43 RDW Coeff of Radha 14.7 % (11.5-14.5) H 11/03/23 02:43 Plt Count 315 K/uL (130-400) 11/03/23 02:43 MPV 9.9 fL (9.4-12.4) 11/03/23 02:43 Immature Gran % (Auto) 1.2 % 11/03/23 02:43 Neut % (Auto) 93.1 % 11/03/23 02:43 Lymph % (Auto) 2.8 % 11/03/23 02:43 Price % (Auto) 2.5 % 11/03/23 02:43 Eos % (Auto) 0.2 % 11/03/23 02:43 Baso % (Auto) 0.2 % 11/03/23 02:43 Neut # (Auto) 27.39 K/uL (1.40-6.50) H 11/03/23 02:43 Lymph # (Auto) 0.83 K/uL (1.20-3.40) L 11/03/23 02:43 Price # (Auto) 0.73 K/uL (0.11-0.59) H 11/03/23 02:43 Eos # (Auto) 0.06 K/uL (0.00-0.50) 11/03/23 02:43 Baso # (Auto) 0.06 K/uL (0.00-0.20) 11/03/23 02:43 Immature Gran # (Auto) 0.35 K/uL (0.01-0.20) H 11/03/23 02:43 Polychromasia 1+ 11/03/23 02:43 ESR 52 mm/hr (0-30) H 11/03/23 02:43 Sodium 135 mmol/L (136-145) L 11/03/23 02:43 Potassium 4.1 mmol/L (3.5-5.1) 11/03/23 02:43 Chloride 103 mmol/L (98-107) 11/03/23 02:43 Carbon Dioxide 22 mmol/L (21-32) 11/03/23 02:43 Anion Gap 10 (3-11) 11/03/23 02:43 BUN 17 mg/dl (6-23) 11/03/23 02:43 Creatinine 1.19 mg/dl (0.6-1.2) 11/03/23 02:43 Est Cr Clr Drug Dosing 96.5 ml/min 11/03/23 02:43 Est GFR ( Amer) 59.9 ml/min 11/03/23 02:43 Est GFR (Non-Af Amer) 51.7 ml/min 11/03/23 02:43 BUN/Creatinine Ratio 14.3 (10-20) 11/03/23 02:43 Glucose 171 mg/dl (70-99(Fasting)) H 11/03/23 02:43 Lactate 2.5 mmol/L (0.4-2.0) H* 11/03/23 02:43 Calcium 8.3 mg/dl (8.6-10.3) L 11/03/23 02:43 Total Bilirubin 0.7 mg/dl (0.2-1.0) 11/03/23 02:43 AST 16 U/L (13-39) 11/03/23 02:43 ALT 13 U/L (7-52) 11/03/23 02:43 Alkaline Phosphatase 56 U/L (34-104) 11/03/23 02:43 C-Reactive Protein 5.51 mg/dl (0-0.5) H 11/03/23 02:43 Total Protein 7.5 gm/dl (6.0-8.3) 11/03/23 02:43 Albumin 3.9 gm/dl (3.4-5.0) 11/03/23 02:43 Globulin 3.6 gm/dl (2.5-4.0) 11/03/23 02:43 Albumin/Globulin Ratio 1.1 (0.9-2) 11/03/23 02:43 Code Status & VTE Plan Code Status Full code VTE Prophylaxis Plan VTE Prophylaxis will be ordered: Yes PG Care Time/CCT Total # of Minutes Spent Total Time Spent with Patient: Total time spent is greater than 50% in coordination of care (as documented) at patient's floor/unit and/or counseling patient: Coding Level of Care Code 98171 INT INP/OBS CARE 3/75MIN Diagnoses Diabetic foot infection E11.628; L08.9 Sepsis A41.9 Hypertension I10 Diabetic infection of right foot E11.628; L08.9 Cellulitis of right lower extremity L03.115 Acute lymphangitis of right lower extremity L03.125 Laceration of fifth toe of left foot S91.115A Diabetic peripheral neuropathy associated with type 2 diabetes mellitus E11.42 Asthma J45.909 Hyperlipidemia E78.5 Diabetes mellitus, type 2 E11.9
[2023-11-03 04:02] LABS: Basophils # (auto) 0.06 K/uL (0.00-0.20); Basophils % (auto) 0.2 %; Eosinophils # (auto) 0.06 K/uL (0.00-0.50); Eosinophils % (auto) 0.2 %; Immature Granulocytes # (auto) 0.35 K/uL (0.01-0.20); Immature Granulocytes % (auto) 1.2 %; Lymphocytes # (auto) 0.83 K/uL (1.20-3.40); Lymphocytes % (auto) 2.8 %; Monocytes # (auto) 0.73 K/uL (0.11-0.59); Monocytes % (auto) 2.5 %; Neutrophils # (auto) 27.39 K/uL (1.40-6.50); Neutrophils % (auto) 93.1 %; Polychromasia 1+
[2023-11-03] MEDS ORDERED: DEXTROSE 50% 50 ML SYRINGE IV PRN (05:03)
[2023-11-03] MEDS ORDERED: ONDANSETRON INJ 2 MG/ML 2 ML VIAL IV PRN (05:03)
[2023-11-03] MEDS ORDERED: GLUCOSE 10 TAB/TUBE PO PRN (05:03)
[2023-11-03] MEDS ORDERED: GLUCOSE 40% GEL 15 GM TUBE PO PRN (05:03)
[2023-11-03] MEDS ORDERED: GLUCAGON FOR INJ 1 MG VIAL SQ PRN (05:03)
[2023-11-03] MEDS ORDERED: CARBOHYDRATES FOR HYPOGLYCEMIA PO PRN (05:03)
[2023-11-03] MEDS ORDERED: ACETAMINOPHEN 325 MG TAB PO PRN (05:03)
[2023-11-03] MEDS ORDERED: MoRPHine SULFATE 2 MG/ML CARP IV PRN (05:03)
[2023-11-03] MEDS ORDERED: NON-FORMULARY MEDICATION (Tirzepatide [Mounjaro] 5 mg/0.5 mL pen injector) SQ SCH (05:03)
[2023-11-03] MEDS ORDERED: MoRPHine SULFATE 4 MG/ML 1 ML CARP\\VIAL IV PRN (05:03)
[2023-11-03] MEDS: NSS + 20MEQ KCL 20 MEQ/1,000 ML BAG IV SCH (05:57)
[2023-11-03] MEDS: PIPERACILLIN/TAZOBACTAM 4.5 GM/100 ML BAG IV SCH (07:45)
[2023-11-03] MEDS: INSULIN ASPART PER UNIT CHARGE SC SCH (07:45)
[2023-11-03] MEDS ORDERED: metFORMIN HCL 500 MG TAB PO SCH (08:00)
[2023-11-03] MEDS: LANTUS PER UNIT CHARGE SQ SCH (08:02)
[2023-11-03] MEDS: ESCITALOPRAM OXALATE 10 MG TAB PO SCH (08:02)
[2023-11-03] MEDS: PRAVASTATIN SOD 40 MG TAB PO SCH (08:03)
[2023-11-03] MEDS: MULTIVITAMIN TAB PO SCH (08:03)
[2023-11-03] MEDS: ENOXAPARIN INJ 40 MG/0.4 ML SYR SQ SCH (08:03)
[2023-11-03] MEDS: FLUTICASONE FUROATE 200MCG 14 PUFFS/INHALER INH SCH (08:03)
[2023-11-03] MEDS: UMECLIDINIUM/VILANTEROL 62.5/25MCG 7 PUFFS/INHALER INH SCH (08:03)
[2023-11-03] MEDS: MELOXICAM 7.5 MG TAB PO SCH (08:03)
--- NOTE | 2023-11-03 08:29 | Ultrasound Report ---
US arterial duplex bilateral lower extremities CLINICAL HISTORY: diabetic foot infection COMPARISON STUDY: None. FINDINGS: Suboptimal evaluation of bilateral femoral arterial structures due to the patient's body olson bitus. Elevated peak systolic velocity within the mid right superficial femoral artery of 239 cm/s co nsistent with an area of stenosis. Distal to the site of stenosis within the right lower extremity th ere are monophasic to biphasic waveforms without elevated peak systolic velocity to suggest an additi onal site of stenosis. No evidence for arterial occlusion within the bilateral lower extremity arteri al structures. Monophasic to biphasic waveforms seen throughout the left lower extremity arterial str uctures with low velocity waveforms within the left peroneal arteries consistent with diffuse atheros clerotic disease. IMPRESSION: 1. No evidence for arterial occlusion within the bilateral lower extremities. 2. Focal area of hemodynamically significant stenosis within the mid right superficial femoral artery . 3. Low velocity monophasic waveforms within the left peroneal arteries consistent with diffuse athero sclerotic disease. ACT 112: Negative or not required by law. Electronically signed by: Nirav Chacko M.D. 11/03/2023 8:28 AM
--- NOTE | 2023-11-03 08:30 | XRay Report ---
XR foot RT min 3V routine CLINICAL HISTORY: diabetic infx COMPARISON STUDY: None. FINDINGS: Soft tissue swelling within the right ankle and right foot. There are plantar and posterior calcaneal spurs. No acute fracture or dislocation within the right foot. No destructive changes to s uggest an osteomyelitis. [id number] degenerative changes at the tarsometatarsal joint. IMPRESSION: 1. Soft tissue swelling within the right ankle and right foot. 2. No evidence for osteomyelitis. ACT 112: Negative or not required by law. Electronically signed by: Nirav Chacko M.D. 11/03/2023 8:28 AM
--- NOTE | 2023-11-03 08:30 | XRay Report ---
XR foot LT min 3V routine CLINICAL HISTORY: diabetic infx COMPARISON STUDY: Left foot 07/04/2020. FINDINGS: Plantar and posterior calcaneal spurs are noted. Soft tissue swelling within the left ankle and left foot. No fracture or dislocation. No destructive changes to suggest an osteomyelitis. IMPRESSION: Soft tissue swelling within the left ankle and left foot. No evidence for osteomyelitis. ACT 112: Negative or not required by law. Electronically signed by: Nirav Chacko M.D. 11/03/2023 8:28 AM
[2023-11-03] MEDS ORDERED: NON-FORMULARY MEDICATION (Coenzyme Q10 [Coq-10] 100 mg Capsule) PO SCH (09:00)
[2023-11-03] MEDS ORDERED: OMEGA-3 (PURIFIED FISH OIL) 1 GM CAP PO SCH (09:00)
[2023-11-03] MEDS ORDERED: LISINOPRIL/HCTZ 10/12.5MG TAB PO SCH (09:00)
[2023-11-03] MEDS ORDERED: NON-FORMULARY MEDICATION (Budesonide-Glycopyr-Formoterol [Breztri Aerosphere] 160-9-4.8 mc INH SCH (09:00)
[2023-11-03] MEDS: DAPTOmycin 450 MG in SYRINGE 0 ML IV SCH (13:08)
--- NOTE | 2023-11-03 15:06 | History & Physical Bridge Note ---
Date of Service November 03, 2023 History & Physical Bridge Note I have examined the patient, reviewed the History & Physical and in the interval since the performance of the History & Physical I have noted the following changes of clinical significance: Patient feeling tired. Appetite is down. We discussed the results of her arterial Doppler, x-rays. She thinks that in the past she did have lip swelling as a reaction to aspirin. I discussed her care with her at the bedside. Vitals reviewed Gen: AAOx3, NAD, morbidly obese HEENT: Anicteric sclerae CV: RRR 2/6 VIVIAN at the RUSB Pulm: CTAB no wcr Abd: +BS, morbidly obese, soft NT ND no masses or hernias Ext: 1+ edema of ankles and legs bilaterally, 2+ dorsalis pedis pulses bilaterally, difficult to palpate PT pulses bilaterally through edema, difficult to palpate popliteal pulses due to morbid obesity Skin: Right leg and foot with erythema, significantly warm to the touch, spreading up right medial thigh, right third toe with distal medial and lateral blisters, scabbed over callus distally. Left lateral fifth toe with skin tear, no active bleeding, no surrounding erythema Neuro: Full strength throughout Arterial Doppler shows hemodynamically significant stenosis in the right mid SFA, monophasic flow in the left peroneal artery 53-year-old female here with right diabetic toe infection with cellulitis and sepsis. Sepsis is improving. Repeat lactate after fluid resuscitation is normalized. Continue broad-spectrum antibiotics with Dapto and Zosyn. MRSA nasal swab is positive Found to have SFA stenosis on the right but does have good distal pulses. Will consult vascular surgery for further opinion. For PAD, recommend starting Plavix at some point but will defer for now until seen by podiatry. She is allergic to aspirin. Is already on statin Likely needs debridement and drainage of blister and callus of right third toe- could collect cultures at that time Follow blood cultures, ESR, CRP, CBC, CMP
[2023-11-04 04:34] LABS: Basophils # (auto) 0.04 K/uL (0.00-0.20); Basophils % (auto) 0.3 %; Eosinophils # (auto) 0.22 K/uL (0.00-0.50); Eosinophils % (auto) 1.8 %; Hematocrit (blood only) 32.2 % (37.0-47.0); Immature Granulocytes # (auto) 0.03 K/uL (0.01-0.20); Immature Granulocytes % (auto) 0.2 %; Lymphocytes # (auto) 1.55 K/uL (1.20-3.40); Lymphocytes % (auto) 12.4 %; Mean Corpuscular Hemoglobin 31.3 pg (25.0-34.0); Mean Corpuscular Hgb Conc 31.1 g/dL (32.0-36.0); Mean Corpuscular Volume 100.6 fL (80.0-100.0); Monocytes # (auto) 0.52 K/uL (0.11-0.59); Monocytes % (auto) 4.2 %; Neutrophils # (auto) 10.12 K/uL (1.40-6.50); Neutrophils % (auto) 81.1 %; Platelet Count 261 K/uL (130-400); RDW Coefficient of Variation 15.2 % (11.5-14.5); RDW Standard Deviation 57.1 fL (36.4-46.3); White Blood Count 12.48 K/ul (4.8-10.8)
[2023-11-04 04:45] LABS: Albumin Level 3.4 gm/dl (3.4-5.0); BUN Creatinine Ratio 11.7 (10-20); Bilirubin,Total 0.7 mg/dl (0.2-1.0); C Reactive Protein 19.01 mg/dl (0-0.5); Calcium 7.5 mg/dl (8.6-10.3); Creatinine Clr Calc Pharmacy 81.2 ml/min; Est GFR (African American) 50.6 ml/min; Est GFR (Non-African American) 43.6 ml/min; Globulin 3.3 gm/dl (2.5-4.0); Magnesium 1.9 mg/dl (1.7-2.4); Potassium 4.4 mmol/L (3.5-5.1); Total Protein 6.7 gm/dl (6.0-8.3)
--- NOTE | 2023-11-04 09:56 | Ultrasound Report ---
US ankle/brachial index ltd CLINICAL HISTORY: foot wound COMPARISON STUDY: Bilateral lower extremity arterial Doppler ultrasound November 03, 2023. TECHNIQUE: Bilateral ankle to brachial indices were obtained. FINDINGS: The right ankle to brachial index measured 0.89 when using the dorsalis pedis and 0.92 when using posterior tibial artery. The left ankle-brachial index measured 1.01 when using the dorsalis p frank and 0.92 when using posterior tibial artery. The ankle-brachial indices are within normal limits . IMPRESSION: 1. Normal left ankle-brachial index. 2. Low normal right ankle-brachial index. ACT 112: Negative or not required by law. Electronically signed by: Davi Shell M.D. 11/04/2023 9:55 AM
--- NOTE | 2023-11-04 10:45 | Podiatry Consultation ---
Date of Consultation November 04, 2023 Assessment & Plan (1) Diabetes mellitus, type 2: Discussed with patient today that she should have postop shoes and I will order these for bedside they should be placed on each lower extremity to prevent any irritation or friction. I do not feel any dressings are needed to the right lower extremity. Would likely benefit from some Allevyn foam to the left foot fifth toe and she absolutely needs to follow-up with the wound care center for the left foot fifth toe it sounds like the referral was already placed from her visit when she was seen at [facility] urgent care I advised that she does absolutely need to set up an appointment for that. I will happily follow-up with patient about patient in 2 weeks for evaluation patient understanding appreciative of our time and explanation she had no further questions or concerns. (2) Acute lymphangitis of right lower extremity: (3) Cellulitis of right lower extremity: (4) Sepsis: (5) Lower extremity edema: History of Present Illness Reason for Consultation: Evaluation of diabetic foot wounds bilateral feet. Attending Physician: Obey Barragan MD History of Present Illness Patient is a very pleasant 53-year-old female who presently sees an outside field marketing team leader. She reported to me that she was seen by her field marketing team leader about 3 weeks ago where they performed a debridement of her right foot third toe callus. She notes that it subsequently got red and swollen she was seen at an urgent care, [facility] urgent care she believes on Friday. She notes that they prescribed her doxycycline which she started to take the provided a referral to the wound care center. But she started to get fever and chills on Friday asked her to call the ambulance and was taken to the hospital. She did have cellulitis of the right lower extremity this is being treated with antibiotics and I note that her white blood cell count is improving and trending down. She was seen at bedside today and I do appreciate that there is no open wound on the right foot there is still is some very mild low-grade erythema the right lower extremity the swelling seems to have improved as well. With the evaluation of the right lower extremity third toe there is no open wound, patient was very concerned about any type of purulent drainage being present which I assured her was not present there was note opening to measure no area to culture. Still some mild swelling in the toe and patient noted a little discomfort likely secondary to the recent debridement. On the left foot fifth toe she has a small healing abrasion which appeared to of 1 point been a blister. She has a referral placed for the wound care center per her note from the urgent care which I advise she continue. In general patient is stable I do not appreciate really any significant open or draining wounds on either lower extremity she indicated to me she was feeling great and that she was not feeling good when she first came in and this does coincide with the white blood cell count that has been trending down. Allergies Allergy/AdvReac Type Severity Reaction Status Date / Time aspirin Allergy Severe LIPS SWELL Verified 11/03/23 03:10 Home Medications Medication Instructions Recorded Confirmed Type antiarthritic combination no.2 900 900 mg PO QAM 02/17/18 11/03/23 History mg tablet (glucosamine-chondroitin) cinnamon bark 500 mg capsule 500 mg PO QAM 02/17/18 11/03/23 History (Cinnamon) escitalopram oxalate 10 mg tablet 10 mg PO QAM 02/17/18 11/03/23 History (Lexapro) meloxicam 15 mg tablet 15 mg PO QAM 02/17/18 11/03/23 History metformin 1,000 mg tablet 1,000 mg PO BID 02/17/18 11/03/23 History multivitamin (Daily Multi-Vitamin 1 tab PO QAM 02/17/18 11/03/23 History tablet) coenzyme Q10 100 mg capsule 100 mg PO QAM 04/16/19 11/03/23 History (CoQ-10) lisinopril 10 1 tab PO QAM 04/16/19 11/03/23 History mg-hydrochlorothiazide 12.5 mg tablet pravastatin 40 mg tablet 40 mg PO QAM 04/16/19 11/03/23 History budesonide 160 mcg-glycopyr 9 2 inh inhalation BID 03/25/22 11/03/23 History mcg-formot 4.8 mcg/actuation HFA inhaler (Breztri Aerosphere) tirzepatide 5 mg/0.5 mL 5 mg subcut WK 01/27/23 11/03/23 History subcutaneous pen injector (Mounjaro) doxycycline hyclate 100 mg tablet 100 mg PO BID #20 tabs 11/02/23 11/03/23 Rx omega-3 fatty acids 1,000 mg 1,000 mg PO QAM 11/03/23 11/03/23 History capsule Patient History Medical History Morbid obesity with BMI of 60.0-69.9, adult History of kidney stones History of COVID-19 diagnosed 02/02/2020 @ [facility]--loss sense of taste/smell, achy, loss appetite, headache, sore throat Ureteral stone Diabetes mellitus with diabetic polyneuropathy Depression HTN (hypertension) Surgical History History of arthroscopy of right knee History of wisdom tooth extraction History of cholecystectomy Family History Father Diabetes Brother Diabetes Sister Nephrolithiasis Other Cancer Heart disease Hypertension Lung disease No family history of adverse response to anesthesia Social History Smoking Status: Never smoker Second Hand Exposure: Yes (parents smoked); Do You Dip or Chew Tobacco: No; Hx Alcohol Use: No Hx Substance Use: No Preferred Language: Portuguese Communication Ability: Effective Visual Impairment: No Limitations Hearing Ability: Normal Adult Basic Education Teacher Required: No Beliefs That Will Affect Care: None marital status: Current Living Situation: Spouse Current Living Situation Comment: Spouse able to assist with dressing changes current occupational status: employed current occupation: Skills Other Information That Helps Us Care for You: No Feels Safe at Home: Yes Safety Concerns: Feels Safe At This Time Assistive Devices: Glasses Physical Exam Skin: Right lower extremity has some very mild low-grade erythema of the anterior leg and small amounts of the ankle. There is no open wound present on the right foot third toe there appeared to a 1 point been a callus there is some dried blood at the distal aspect where the callus was present due to recent debridement that was performed to the point of bleeding but otherwise the area is healed. There is no expressible fluid no draining or open wound there is no breakdown in the interspaces. It does appear that the cellulitis is improving. Dorsalis pedis pulse is palpable 1 out of 4 although I do appreciate some longstanding PAD if patient is not having any symptoms consistent with a nonhealing wound at this point can continue to monitor certainly if worsening or has a stenosis recommend vascular referral. The posterior tibial pulses nonpalpable secondary to extreme swelling of bilateral lower extremities again I was not able to palpate the posterior tibial pulse due to the swelling of the lower extremity likely secondary to her history of what appears to be right lower extremity swelling. Left lower extremity without erythema the swelling is still present dorsalis pedis pulse palpable 2 out of 4, posterior tibial pulse nonpalpable secondary to the swelling. Healing abrasion present on the left foot fifth toe lateral aspect without significant drainage she already has a wound care appointment set up. Interspaces are intact without maceration or breakdown. Results & Data Vital Signs (Past 12 Hours) Vital Signs Temp Pulse Pulse Resp BP Pulse Ox Pulse Ox 11/04/23 08:59 11/04/23 08:01 118/65 11/04/23 08:00 60 16 97 11/04/23 08:00 94 H 11/04/23 07:03 61 19 98 11/04/23 06:53 124/69 11/04/23 06:00 58 L 20 98 11/04/23 05:12 57 L 20 96 11/04/23 04:24 56 L 20 97 11/04/23 04:00 120/75 11/04/23 04:00 120/75 11/04/23 04:00 120/75 11/04/23 03:51 58 L 19 98 11/04/23 03:30 58 L 22 98 11/04/23 02:18 59 L 21 96 11/04/23 02:11 96 11/04/23 00:29 98/59 L 11/04/23 00:27 62 23 95 11/04/23 00:00 62 22 97 11/04/23 00:00 61 11/03/23 23:09 71 22 99 11/03/23 23:00 59 L 21 99 11/03/23 23:00 36.6 C 68 24 99 O2 Del Method O2 Del Method 11/04/23 08:59 Room Air 11/04/23 08:01 11/04/23 08:00 11/04/23 08:00 11/04/23 07:03 11/04/23 06:53 11/04/23 06:00 11/04/23 05:12 11/04/23 04:24 11/04/23 04:00 11/04/23 04:00 11/04/23 04:00 11/04/23 03:51 11/04/23 03:30 11/04/23 02:18 11/04/23 02:11 Room Air 11/04/23 00:29 11/04/23 00:27 11/04/23 00:00 11/04/23 00:00 11/03/23 23:09 11/03/23 23:00 11/03/23 23:00 Room Air
--- NOTE | 2023-11-04 11:20 | Consultation ---
Date of Consultation November 04, 2023 Assessment & Plan (1) Peripheral arterial disease: Pt with mild PAD by exam and arterial US. BLE without signs of ischemia. No indications for vascular surgical intervention at this time. Recommend local wound care and abx per medicine. Please call if needed. History of Present Illness Reason for Consultation: PAd Attending Physician: Obey Barragan MD History of Present Illness 53 yo f with hx of DMII, asthma, hyperlipidemia, HTN, morbid obesity, renal calculi, arthritis, admitted with possible sepsis d/t R toe wound, seen in consultation today for PAD. Pt states no known hx of PAD. States she has callouses to her toetips from her toes curling under her while ambulating. Saw her sales project coordinator a few weeks ago, who removed the callouses from her R toes. States she noted increased pain, swelling, and saw urgent care who started her on doxycycline. She then noted chills, malaise, and nausea, so came to [facility] for eval, as these are similar sx she experienced a few yrs ago when she was septic. Pt states feeling much better since admission. Denies [facility], fever, chest pain, SOB, abd pain, N/V, claudication, rest pain, discoloration of toes, other complaints. Arterial US demonstrates mild/moderate diffuse disease in BLE. SHELL RLE 0.92, LLE 1.0 Allergies Allergy/AdvReac Type Severity Reaction Status Date / Time aspirin Allergy Severe LIPS SWELL Verified 11/03/23 03:10 Home Medications Medication Instructions Recorded Confirmed Type antiarthritic combination no.2 900 900 mg PO QAM 02/17/18 11/03/23 History mg tablet (glucosamine-chondroitin) cinnamon bark 500 mg capsule 500 mg PO QAM 02/17/18 11/03/23 History (Cinnamon) escitalopram oxalate 10 mg tablet 10 mg PO QAM 02/17/18 11/03/23 History (Lexapro) meloxicam 15 mg tablet 15 mg PO QAM 02/17/18 11/03/23 History metformin 1,000 mg tablet 1,000 mg PO BID 02/17/18 11/03/23 History multivitamin (Daily Multi-Vitamin 1 tab PO QAM 02/17/18 11/03/23 History tablet) coenzyme Q10 100 mg capsule 100 mg PO QAM 04/16/19 11/03/23 History (CoQ-10) lisinopril 10 1 tab PO QAM 04/16/19 11/03/23 History mg-hydrochlorothiazide 12.5 mg tablet pravastatin 40 mg tablet 40 mg PO QAM 04/16/19 11/03/23 History budesonide 160 mcg-glycopyr 9 2 inh inhalation BID 03/25/22 11/03/23 History mcg-formot 4.8 mcg/actuation HFA inhaler (Breztri Aerosphere) tirzepatide 5 mg/0.5 mL 5 mg subcut WK 01/27/23 11/03/23 History subcutaneous pen injector (Mounjaro) doxycycline hyclate 100 mg tablet 100 mg PO BID #20 tabs 11/02/23 11/03/23 Rx omega-3 fatty acids 1,000 mg 1,000 mg PO QAM 11/03/23 11/03/23 History capsule Patient History Medical History Morbid obesity with BMI of 60.0-69.9, adult History of kidney stones History of COVID-19 diagnosed 02/02/2020 @ [facility]--loss sense of taste/smell, achy, loss appetite, headache, sore throat Ureteral stone Diabetes mellitus with diabetic polyneuropathy Depression HTN (hypertension) Surgical History History of arthroscopy of right knee History of wisdom tooth extraction History of cholecystectomy Family History Father Diabetes Brother Diabetes Sister Nephrolithiasis Other Cancer Heart disease Hypertension Lung disease No family history of adverse response to anesthesia Social History Smoking Status: Never smoker Second Hand Exposure: Yes (parents smoked); Do You Dip or Chew Tobacco: No; Hx Alcohol Use: No Hx Substance Use: No Preferred Language: Croatian Communication Ability: Effective Visual Impairment: No Limitations Hearing Ability: Normal Blanket Binder Required: No Beliefs That Will Affect Care: None marital status: Current Living Situation: Spouse Current Living Situation Comment: Spouse able to assist with dressing changes current occupational status: employed current occupation: Skills Other Information That Helps Us Care for You: No Feels Safe at Home: Yes Safety Concerns: Feels Safe At This Time Assistive Devices: Glasses Review of Systems Review of Systems: All systems reviewed & are unremarkable except as noted in HPI & below Physical Exam Constitutional: WD/WN, vitals as above cooperative and comfortable; not in distress Neck: trachea midline Respiratory: normal respiratory effort, lungs clear to auscultation Auscultation: + diminished lung sounds Cardiovascular: Rate/Rhythm: regular rate and regular rhythm Vessels: posterior tibial pulses present (Dopplerable BLE), dorsalis pedis pulses present (RLE +2, LLE +1) and radial pulses present; + abnormal peripheral pulses Extremities: normal capillary refill and + edema Gastrointestinal (Abdomen): Inspection/Auscultation: abdomen normal to inspection and normal bowel sounds Percussion/Palpation: abdomen soft; abdomen nontender Musculoskeletal: no cyanosis or clubbing, extremities motor strength 5/5 Skin: + lesion (R 3rd toe small scabbed area, 2nd toe callous) and + erythema (R lower leg/ankle, warmth.) LLE 5th toe small laceration Neurologic: moves all extremities and awake; no focal motor deficits and not confused Psychiatric: A+Ox3, euthymic affect Results & Data Vital Signs (Past 12 Hours) Vital Signs Temp Pulse Resp BP Pulse Ox Pulse Ox O2 Del Method 11/04/23 10:06 27 H 97 11/04/23 08:59 Room Air 11/04/23 08:06 68 17 98 11/04/23 08:01 118/65 11/04/23 08:00 36.6 C 11/04/23 08:00 60 16 97 11/04/23 08:00 94 H 11/04/23 07:03 61 19 98 11/04/23 06:53 124/69 11/04/23 06:00 58 L 20 98 11/04/23 05:12 57 L 20 96 11/04/23 04:24 56 L 20 97 11/04/23 04:00 120/75 11/04/23 04:00 120/75 11/04/23 04:00 120/75 11/04/23 03:51 58 L 19 98 11/04/23 03:30 58 L 22 98 11/04/23 02:18 59 L 21 96 11/04/23 02:11 96 11/04/23 00:29 98/59 L 11/04/23 00:27 62 23 95 11/04/23 00:00 62 22 97 11/04/23 00:00 61 O2 Del Method 11/04/23 10:06 11/04/23 08:59 11/04/23 08:06 11/04/23 08:01 11/04/23 08:00 11/04/23 08:00 11/04/23 08:00 11/04/23 07:03 11/04/23 06:53 11/04/23 06:00 11/04/23 05:12 11/04/23 04:24 11/04/23 04:00 11/04/23 04:00 11/04/23 04:00 11/04/23 03:51 11/04/23 03:30 11/04/23 02:18 11/04/23 02:11 Room Air 11/04/23 00:29 11/04/23 00:27 11/04/23 00:00 11/04/23 00:00
[2023-11-04] MEDS ORDERED: VANCOMYCIN HCL 2,000 MG in SODIUM CHLORIDE 0.9% 500 ML IV SCH (12:00)
--- NOTE | 2023-11-04 16:01 | Hospitalist Progress Note ---
Date of Service November 04, 2023 Assessment & Plan (1) Diabetic foot infection: Plan: Involving left fifth toe along with right lower extremity cellulitis. Currently on daptomycin and Zosyn, day 2. Appreciate podiatry consultation and vascular surgery consultation. Ankle brachial index normal on the left and low normal on the right. No intervention needed at this time. She will need to follow-up in the wound clinic (2) Sepsis: Plan: Present on admission. Now resolved (3) Hypertension: Plan: Lisinopril HCT currently on hold. Stable (4) Cellulitis of right lower extremity: Plan: Erythema has improved right lower extremity pretibially. Continue intravenous antibiotics for now. Eventual discharge to home on oral antibiotic (5) Diabetic peripheral neuropathy associated with type 2 diabetes mellitus: Plan: Stable. ADA diet. Sliding scale coverage as needed. Continue current medical management Plan Hopeful discharge to home tomorrow, November 04, on an oral antibiotic Admission and Anticipated Discharge Date Admission Date: November 03, 2023 Subjective Alert and oriented. Podiatry and vascular surgery consultations noted. No intervention necessary at this time. White count has dropped to 12,000 on daptomycin and Zosyn, day 2. Hopefully she can go home tomorrow, November 04, on an oral antibiotic. Oral intake is adequate. IV fluids discontinued. She will be transferred to a general medical bed. Review of Systems 2 Review of Systems: Constitutionalno fever or chills ENTno blurred vision, no double vision, no epistaxis, no sore throat Respiratoryno cough, no wheezing, no shortness of breath Cardiacno palpitations, no chest pain, no syncope Wilma nausea, vomiting, diarrhea, melena, hematochezia GUno urinary retention, no urinary incontinence, no dysuria, no hematuria Musculoskeletalno joint pain, no muscle tenderness Skinsome erythema noted pretibially right lower extremity below the knee. Superficial ulceration left fifth toe. Neurono isolated weakness, no paresthesia, no weakness Psychno depression, no anxiety Physical Exam 2 Physical Exam: General-alert and oriented x3, no fever, no chills HEENT-head atraumatic and normocephalic, pupils equal and reactive to light, extraocular muscles intact Neck-no lymphadenopathy or thyromegaly, trachea midline Chest-clear to auscultation. No rales, wheezing or rhonchi Cardiac-regular rate and rhythm, normal S1 and S2 Abdomen-normal bowel sounds, no hepatosplenomegaly Extremities-superficial ulceration left fifth toe. Neuro-cranial nerves II through XII intact, motor and sensory function within normal limits, strength symmetrical, no focal deficits Psych-normal affect, normal mood Results & Data Results & Data Vital Signs (Past 12 Hours) Vital Signs Temp Pulse Resp BP Pulse Ox O2 Del Method 11/04/23 14:06 60 23 93 11/04/23 13:54 61 22 95 11/04/23 13:00 69 16 97 11/04/23 12:00 61 17 98 11/04/23 11:38 108/71 11/04/23 11:18 59 L 24 93 11/04/23 10:06 27 H 97 11/04/23 08:59 Room Air 11/04/23 08:06 68 17 98 11/04/23 08:01 118/65 11/04/23 08:00 36.6 C 11/04/23 08:00 60 16 97 11/04/23 08:00 94 H 11/04/23 07:03 61 19 98 11/04/23 06:53 124/69 11/04/23 06:00 58 L 20 98 11/04/23 05:12 57 L 20 96 11/04/23 04:24 56 L 20 97 11/04/23 04:00 120/75 11/04/23 04:00 120/75 11/04/23 04:00 120/75 Laboratory Results 11/04/23 03:55 11/04/23 03:55 PG Care Time/CCT Total # of Minutes Spent Total Time Spent with Patient: Total time spent is greater than 50% in coordination of care (as documented) at patient's floor/unit and/or counseling patient: Coding Level of Care Code 08207 SUB INP/OBS CARE 3/50MIN Diagnoses Diabetic foot infection E11.628; L08.9 Sepsis A41.9 Hypertension I10 Cellulitis of right lower extremity L03.115 Diabetic peripheral neuropathy associated with type 2 diabetes mellitus E11.42
--- NOTE | 2023-11-04 19:23 | XCELERA ---
[id number] \\[id number]
[2023-11-05 07:06] LABS: Basophils # (auto) 0.03 K/uL (0.00-0.20); Basophils % (auto) 0.3 %; Eosinophils # (auto) 0.31 K/uL (0.00-0.50); Hematocrit (blood only) 31.9 % (37.0-47.0); Hemoglobin 10.4 g/dl (12.0-16.0); Immature Granulocytes # (auto) 0.05 K/uL (0.01-0.20); Immature Granulocytes % (auto) 0.5 %; Lymphocytes # (auto) 1.55 K/uL (1.20-3.40); Lymphocytes % (auto) 15.2 %; Mean Corpuscular Hemoglobin 31.8 pg (25.0-34.0); Mean Corpuscular Hgb Conc 32.6 g/dL (32.0-36.0); Mean Corpuscular Volume 97.6 fL (80.0-100.0); Mean Platelet Volume 10.1 fL (9.4-12.4); Monocytes # (auto) 0.46 K/uL (0.11-0.59); Monocytes % (auto) 4.5 %; Neutrophils % (auto) 76.5 %; Platelet Count 269 K/uL (130-400); RDW Coefficient of Variation 14.7 % (11.5-14.5); Red Blood Count 3.27 M/uL (4.20-5.40)
[2023-11-05 07:36] LABS: Albumin Level 3.2 gm/dl (3.4-5.0); BUN Creatinine Ratio 11.4 (10-20); Bilirubin,Total 0.5 mg/dl (0.2-1.0); Calcium 7.6 mg/dl (8.6-10.3); Creatinine Clr Calc Pharmacy 84.2 ml/min; Est GFR (African American) 52.9 ml/min; Est GFR (Non-African American) 45.6 ml/min; Globulin 3.3 gm/dl (2.5-4.0); Magnesium 2.2 mg/dl (1.7-2.4); Potassium 4.5 mmol/L (3.5-5.1); Total Protein 6.5 gm/dl (6.0-8.3)
[2023-11-05 07:56] VITALS: PULSE 60; RESP 17
--- NOTE | 2023-11-05 11:44 | Discharge Summary ---
Discharge Summary Date of Service November 05, 2023 Principal Dx & Hospital Course #1 = Principal Diagnosis (1) Diabetic foot infection: Involving left fifth toe along with right lower extremity cellulitis. Treated while hospitalized with daptomycin and Zosyn. She will be discharged home on Augmentin for 1 more week. Appreciate podiatry consultation and vascular surgery consultation. Ankle brachial index normal on the left and low normal on the right. No intervention needed at this time. She will need to follow-up in the wound clinic. Podiatry has recommended special shoes for her to wear to prevent further injury to her feet (2) Sepsis: Present on admission. Now resolved (3) Hypertension: Lisinopril HCT currently on hold. Will resume at discharge. Stable (4) Cellulitis of right lower extremity: Erythema right lower extremity pretibially has now nearly resolved. Treated while hospitalized with intravenous daptomycin and Zosyn. She will continue Augmentin for 1 more week as an outpatient. (5) Diabetic peripheral neuropathy associated with type 2 diabetes mellitus: Stable. ADA diet. Sliding scale coverage as needed. Continue current medical management Plan Home todayNovember 04 Admission HPI Per Admitting Provider The patient is a 53-year-old female with a past medical history including diabetes mellitus, chronic lower extremity edema, peripheral neuropathy, history of diabetic foot ulcer, morbid obesity, asthma, hypertension, and hyperlipidemia. She presents to the emergency department with symptoms as noted above. Discharge Exam General-alert and oriented x3, no fever, no chills HEENT-head atraumatic and normocephalic, pupils equal and reactive to light, extraocular muscles intact Neck-no lymphadenopathy or thyromegaly, trachea midline Chest-clear to auscultation. No rales, wheezing or rhonchi Cardiac-regular rate and rhythm, normal S1 and S2 Abdomen-normal bowel sounds, no hepatosplenomegaly Extremities-superficial ulceration left fifth toe. Neuro-cranial nerves II through XII intact, motor and sensory function within normal limits, strength symmetrical, no focal deficits Psych-normal affect, normal mood Discharge Plan Discharge Items Patient Disposition: Home - Self-Care Reason For Visit: SEPSIS DUE TO DIABETIC FOOT INFECTION, RLE CELLULI Discharge Diagnosis: Right lower extremity cellulitis, left fifth toe injury Activity: Resume your previous activity Non-emergency contact: Primary Care Provider Call non-emergency contact if: you have any medication questions and your symptoms worsen Follow-up/Referrals: Ean Mueller MD [Primary Care Provider] - Diet: Carb Consistent or DM2 Addtl Attending Provider Instructions: Take amoxicillin/clavulanate twice daily for 1 more week. Follow-up with outpatient wound clinic. Wear special shoes as recommended by podiatry until healed Pending Studies at Discharge: No Stand-Alone Forms: My [facility] Duel, Smoking Cessation Medications and DC Order Prescriptions: New amoxicillin-pot clavulanate 875-125 mg tablet 1 tab PO BID Qty: 14 0RF Continued Breztri Aerosphere 160-9-4.8 mcg/actuation HFA aerosol inhaler 2 inh inhalation BID escitalopram oxalate [Lexapro] 10 mg tablet 10 mg PO QAM meloxicam 15 mg tablet 15 mg PO QAM metformin 1,000 mg tablet 1,000 mg PO BID antiarthritic combination no.2 [glucosamine-chondroitin] 900 mg tablet 900 mg PO QAM cinnamon bark [Cinnamon] 500 mg capsule 500 mg PO QAM multivitamin [Daily Multi-Vitamin] tablet 1 tab PO QAM Mounjaro 5 mg/0.5 mL pen injector 5 mg subcut WK Rx Instructions: SUNDAYS pravastatin 40 mg Tablet 40 mg PO QAM lisinopril-hydrochlorothiazide 10-12.5 mg tablet 1 tab PO QAM coenzyme Q10 [CoQ-10] 100 mg Capsule 100 mg PO QAM omega-3 fatty acids 1,000 mg Capsule 1,000 mg PO QAM Discontinued doxycycline hyclate 100 mg tablet 100 mg PO BID Qty: 20 0RF Rx Instructions: STARTED 11/02/23 FOR 10 DAYS Discharge Orders: Discharge Order (Routine); Ordered 11/05/23 Ordered By: Obey Barragan Admission Data Admit Date/Time: 11/03/23 03:41 Attending Provider: Obey Barragan Admit Provider: Floyd Washburn Primary Care Provider: Ean Mueller Other Providers: Floyd Washburn; Nelda Lizarraga; Thomas Gallegos Hospital Stay Data Consultations 11/03/23 03:05 ED Decision to Admit Stat 11/03/23 14:58 Consult Podiatry Routine 11/03/23 15:00 Consult Vascular Surgery Routine Diagnostic Imagining Performed 11/03/23 03:32 US arterial duplex LE BI Routine 11/04/23 07:44 US ankle/brachial index ltd Routine Pending Results Patient Have Any Pending Studies at Discharge: No Discharge Instructions Given to Patient (Per Discharging Provider) Take amoxicillin/clavulanate twice daily for 1 more week. Follow-up with outpatient wound clinic. Wear special shoes as recommended by podiatry until healed Total Time Total Time Spent Total Time Spent (In Minutes): 45 minutes Coding Level of Care Code 88884 INP/OBS DISCH >30 MIN Diagnoses Diabetic foot infection E11.628; L08.9 Sepsis A41.9 Hypertension I10 Cellulitis of right lower extremity L03.115 Diabetic peripheral neuropathy associated with type 2 diabetes mellitus E11.42
[2023-11-05 12:38] VITALS: BP 113/74; TEMP 98.1; O2SAT 98
== END 2023-11-05 14:42 | disposition home or self-care (01) | DRG 872 ==
LOC: ED 02:33 → SUATTDRO 03:41 → 1E 03:41 → 3E 11-04 17:43

== ENCOUNTER 2025-02-25 07:56 | Observation (INO) ==
[2025-02-25] MEDS ORDERED: VANCOMYCIN CONSULT ACTIVE PRN ×2 (08:19→14:08)
--- NOTE | 2025-02-25 08:36 | Emergency Department Note ---
Impression & Plan Sepsis, Diabetic infection of right foot, Cellulitis of right lower extremity ED Provider Note CHIEF COMPLAINT: "I have sepsis" HISTORY OF PRESENT ILLNESS: This 54-year-old female with significant past medical history of sepsis associated with diabetic foot infections patient presents to the emergency department via private vehicle for evaluation of "I have sepsis". The patient states that she developed chills and nausea overnight last night. She states "this is how I felt when I had sepsis before". Patient denies any vomiting. She denies any cough, congestion, runny nose, sore throat. She denies a fever but did have some chills overnight. No abdominal pain. No chest pain. No shortness of breath. She states that she was seen by podiatry about a week ago and had the calluses on her foot shaved down. She states she looked at her feet last night and did not note them to be red or draining. She denies any pain, but admits she has a history of diabetic neuropathy. She denies any red streaking into the extremities. Patient denies any dysuria, urinary frequency urinary hesitancy, hematuria. History provided by: Patient REVIEW OF SYSTEMS: A 10 system review of systems was performed with positives and pertinent negatives listed in the history of present illness. All other systems were reviewed and are negative. ALLERGIES: Aspirin PHYSICAL EXAM: VITALS: Vitals are noted on the nurse's note and reviewed by myself. GENERAL: This is a 54-year-old female, in no acute distress, nondiaphoretic, well-developed well-nourished. SKIN: Erythema and edema of the right third digit with purulent discharge. The skin was otherwise without rashes, erythema, edema, or bruising. There is no tenting of the skin. Capillary refill less than 2 seconds. HEAD: Normocephalic atraumatic. EARS: External auditory canals clear, tympanic membranes pearly peoples without erythema or effusion bilaterally. No hemotympanum. Negative smith sign EYES: Pupils equal round and reactive to light and accommodation. Conjunctivae without injection, sclerae without icterus. Extraocular movements intact. NOSE: Patent, turbinates without inflammation or discharge. No sinus tenderness. MOUTH: Mucous membranes moist. Tonsils are not enlarged. Pharynx without erythema or exudate. Uvula midline. Airway patent. Tongue does not deviate. NECK: Supple without nuchal rigidity. No lymphadenopathy. Cervical spine is nontender. No JVD. HEART: Regular rate and rhythm without murmurs gallops or rubs. LUNGS: Clear to auscultation bilaterally without wheezes, rales or rhonchi. No retractions or accessory muscle use. ABDOMEN: Positive bowel sounds x 4. Soft, nontender, without masses or organomegaly. Jean Baptiste sign negative. No guarding or rebound tenderness. MUSCULOSKELETAL: No muscle atrophy, erythema, or edema noted. Full range of motion without joint tenderness in all extremities. No tenderness to palpation. Normal gait. Strength 5/5 throughout. NEURO: Patient was alert and oriented to person place and time. Normal sensation to light and sharp touch. Deep tendon reflexes 2+ throughout. No focal neurological deficits. An order was placed for continuous cardiac cath tech. The monitor showed a normal sinus rhythm at a ventricular rate of 76 bpm, per my interpretation. EKG was reviewed by myself and found to be normal sinus rhythm at a rate of 82 beats per minute and per my interpretation reveals no ST elevation or depression. No T wave inversion. And when compared to previous EKG of 02/02/2020 is no significant change Imaging as interpreted by myself and the radiologist revealed soft tissue swelling of the right third toe, but no evidence of osteomyelitis, clear chest x-ray, with radiologist interpretation as above. I agree with the radiologist's findings as based upon my independent interpretation. EMERGENCY DEPARTMENT COURSE: The patient was evaluated as above. The patient presents to the emergency department with complaint of "I have sepsis". The patient does report history of sepsis associated with cellulitis of the toes in the past. Patient is not febrile or tachycardic. She generally appears well on examination. IV access was obtained, for drawn. Sepsis fluid volume administered utilizing ideal body weight. Patient was given a total of 2 L IV NSS. Patient started on IV vancomycin and Daptomycin, as has been previously used during prior admissions. X-ray imaging of the chest and right foot completed and reviewed by myself radiologist as noted. Labs reviewed. Per my interpretation, labs concerning for leukocytosis of 27.91. No concerning anemia or thrombocytopenia. Coagulation studies unremarkable. Renal function and electrolytes without significant abnormality. Hepatic function without concerning abnormality. Troponin 6.9. Lactic acid elevated at 2.8. Procalcitonin elevated at 3.37. At this time, I did recommend inpatient care. The patient was agreeable. I discussed the case with the [facility] hospitalist. Please see hospitalist dictation regarding ongoing management and final disposition of this patient. Case was discussed with the attending physician. I attest that I have personally reviewed the patient medication list. I attest that I have reviewed the patient's blood pressure and it was found to be normal GCS: 15 In the evaluation and treatment of this patient the following differential diagnoses were entertained: Cellulitis, abscess, MRSA infection, DVT, necrotizing fasciitis, dermatitis, drug eruption, osteomyelitis, allergic reaction, sepsis, as well as other pathologies. The chart was completed utilizing [employer] Speech voice recognition software. Grammatical errors, random word insertions, pronoun errors, and incomplete sentences are an occasional consequence of this system due to software limitations, ambient noise, and hardware issues. Any formal questions or concerns about the content, text, or information contained within the body of this dictation should be directly addressed to the provider for clarification. Past Med/Surg History Problem List Acquired claw toe of right foot Peripheral arterial disease (Chronic) Diabetic ulcer of right great toe (Acute) Laceration of fifth toe of left foot Acute lymphangitis of right lower extremity Cellulitis of right lower extremity (Acute) Diabetic infection of right foot (Acute) Diabetic foot infection (Acute) Sepsis (Acute) Diabetic ulcer of toe of left foot associated with diabetes mellitus due to underlying condition, with fat layer exposed (Acute) Diabetic ulcer of left foot associated with diabetes mellitus due to underlying condition, limited to breakdown of skin (Acute) Traumatic open wound of right lower leg (Acute) Diabetic ulcer of left foot associated with type 2 diabetes mellitus, limited to breakdown of skin (Acute) Puncture wound (Acute) Diabetic ulcer of left foot associated with type 2 diabetes mellitus, with fat layer exposed (Acute) Encounter for pre-operative examination COVID-19 (Acute) Diabetic ulcer of left foot associated with type 2 diabetes mellitus, with fat layer exposed (Acute) Diabetic ulcer of left foot associated with type 2 diabetes mellitus, limited to breakdown of skin (Acute) Diabetic ulcer of toe of left foot associated with type 2 diabetes mellitus, limited to breakdown of skin (Acute) Foot deformity (Chronic) Edema (Chronic) Personal history of diabetic foot ulcer (Chronic) Loss of protective sensation of skin of foot (Chronic) Left ureteral calculus (Chronic) S/P cholecystectomy (Chronic) Heart murmur (Chronic) follows with PCP Arthritis (Chronic) Hemorrhoids (Chronic) Medical History History of recent hospitalization (11/2023) [facility] (sepsis) History of MRSA infection (11/2023) History of sepsis (11/2023) History of cellulitis (11/2023) right foot Cardiac murmur follows pcp for. Diabetes mellitus, type 2 Diabetic peripheral neuropathy associated with type 2 diabetes mellitus Asthma no recent flare. Hyperlipidemia Morbid obesity with BMI of 60.0-69.9, adult History of kidney stones History of COVID-19 diagnosed 02/02/2020 @ [facility]--loss sense of taste/smell, achy, loss appetite, headache, sore throat - resolved. No hx hospitalization. Diabetes mellitus with diabetic polyneuropathy Depression HTN (hypertension) Surgical History History of colonoscopy History of arthroscopy of right knee History of wisdom tooth extraction History of cholecystectomy Family History Father Diabetes Brother Diabetes Sister Nephrolithiasis Other Cancer Heart disease Hypertension Lung disease No family history of adverse response to anesthesia Social History Smoking Status: Never smoker Second Hand Exposure: Yes (parents smoked); Do You Dip or Chew Tobacco: No; Hx Alcohol Use: No Hx Substance Use: No Preferred Language: Cypriot Communication Ability: Effective Visual Impairment: No Limitations Hearing Ability: Normal Pugger Helper Required: No Beliefs That Will Affect Care: None marital status: Current Living Situation: Spouse Current Living Situation Comment: Spouse able to assist with dressing changes current occupational status: employed current occupation: Skills Feels Safe at Home: Yes Assistive Devices: Contacts and Glasses Allergies Allergies Allergy/AdvReac Type Severity Reaction Status Date / Time aspirin Allergy Severe LIPS SWELL Verified 07/23/24 14:55 Home Meds Home Medications Medication Instructions Recorded Confirmed antiarthritic combination no.2 900 900 mg PO QAM 02/17/18 02/25/25 mg tablet (glucosamine-chondroitin) cinnamon bark 500 mg capsule 500 mg PO QAM 02/17/18 02/25/25 (Cinnamon) escitalopram oxalate 10 mg tablet 10 mg PO QAM 02/17/18 02/25/25 (Lexapro) meloxicam 15 mg tablet 15 mg PO QAM 02/17/18 02/25/25 metformin 1,000 mg tablet 1,000 mg PO BID 02/17/18 02/25/25 multivitamin (Daily Multi-Vitamin 1 tab PO QAM 02/17/18 02/25/25 tablet) coenzyme Q10 100 mg capsule 100 mg PO QAM 04/16/19 02/25/25 (CoQ-10) lisinopril 10 1 tab PO QAM 04/16/19 02/25/25 mg-hydrochlorothiazide 12.5 mg tablet pravastatin 40 mg tablet 40 mg PO QAM 04/16/19 02/25/25 budesonide 160 mcg-glycopyr 9 2 inh inhalation BID 03/25/22 02/25/25 mcg-formot 4.8 mcg/actuation HFA inhaler (Breztri Aerosphere) tirzepatide 5 mg/0.5 mL 10 mg subcut WK 01/27/23 02/25/25 subcutaneous pen injector (Mounjaro) omega-3 fatty acids 1,000 mg 1,000 mg PO QAM 11/03/23 02/25/25 capsule Results & Data (ED) Vital Signs Vital Signs - 24 hr 02/25/25 08:04 02/25/25 08:38 02/25/25 08:44 Temperature 36.9 C Temperature Source Skin Pulse Rate 80 Pulse Rate [Apical] 76 75 Pulse Rhythm [Apical] Regular Pulse Strength [Apical] Normal Respiratory Rate 20 18 17 Respiratory Effort / Characteristics Non-Labored Spontaneous Non-Labored Spontaneous Non-Labored Respiratory Depth Normal Normal Normal Respiratory Pattern Regular Regular Regular Blood Pressure 134/70 Blood Pressure [Left Arm] 112/74 112/74 Blood Pressure Mean 91 Blood Pressure Mean [Left Arm] 86 86 Blood Pressure Position [Left Arm] Lying Pulse Oximetry 97 98 95 Oxygen Delivery Method Room Air Room Air Room Air Sepsis Recent Fever Within 48 Hours No Sepsis New/Unexplained Change in Mental Status N/A Sepsis Action Taken by Nursing No Action Required 02/25/25 08:44 02/25/25 09:02 02/25/25 09:51 Temperature Temperature Source Pulse Rate 66 Pulse Rate [Apical] 72 Pulse Rhythm [Apical] Regular Pulse Strength [Apical] Normal Respiratory Rate 18 Respiratory Effort / Characteristics Non-Labored Respiratory Depth Normal Respiratory Pattern Regular Blood Pressure Blood Pressure [Left Arm] 129/75 Blood Pressure Mean Blood Pressure Mean [Left Arm] 93 Blood Pressure Position [Left Arm] Lying Pulse Oximetry 95 96 Oxygen Delivery Method Room Air Room Air Sepsis Recent Fever Within 48 Hours Sepsis New/Unexplained Change in Mental Status Sepsis Action Taken by Nursing 02/25/25 09:52 02/25/25 11:15 02/25/25 11:30 Temperature Temperature Source Pulse Rate Pulse Rate [Apical] 68 69 Pulse Rhythm [Apical] Regular Regular Pulse Strength [Apical] Normal Normal Respiratory Rate 18 16 Respiratory Effort / Characteristics Non-Labored Non-Labored Respiratory Depth Normal Normal Respiratory Pattern Regular Regular Blood Pressure 124/61 Blood Pressure [Left Arm] 124/70 113/46 L Blood Pressure Mean 71 Blood Pressure Mean [Left Arm] 88 68 Blood Pressure Position [Left Arm] Lying Lying Pulse Oximetry 96 96 Oxygen Delivery Method Room Air Room Air Sepsis Recent Fever Within 48 Hours Sepsis New/Unexplained Change in Mental Status Sepsis Action Taken by Nursing 02/25/25 11:30 02/25/25 11:42 Temperature Temperature Source Pulse Rate 69 Pulse Rate [Apical] Pulse Rhythm [Apical] Pulse Strength [Apical] Respiratory Rate 25 H Respiratory Effort / Characteristics Respiratory Depth Respiratory Pattern Blood Pressure 124/61 Blood Pressure [Left Arm] Blood Pressure Mean 71 Blood Pressure Mean [Left Arm] Blood Pressure Position [Left Arm] Pulse Oximetry Oxygen Delivery Method Sepsis Recent Fever Within 48 Hours Sepsis New/Unexplained Change in Mental Status Sepsis Action Taken by Nursing Laboratory Data 02/25/25 08:32 02/25/25 08:32 Lab Results 02/25/25 02/25/25 Range/Units 08:32 10:27 WBC 27.91 H (4.8-10.8) K/ul RBC 3.71 L (4.20-5.40) M/uL Hgb 12.1 (12.0-16.0) g/dL Hct 35.5 L (37.0-47.0) % MCV 95.7 (80.0-100.0) fL MCH 32.6 (25.0-34.0) pg MCHC 34.1 (32.0-36.0) g/dL RDW Std Deviation 47.8 H (36.4-46.3) fL RDW Coeff of Radha 13.7 (11.5-14.5) % Plt Count 287 (130-400) K/uL MPV 10.1 (9.4-12.4) fL Immature Gran % (Auto) 0.9 % Neut % (Auto) 93.2 % Lymph % (Auto) 3.0 % Burnet % (Auto) 2.7 % Eos % (Auto) 0.0 % Baso % (Auto) 0.2 % Neut # (Auto) 26.01 H (1.40-6.50) K/uL Lymph # (Auto) 0.85 L (1.20-3.40) K/uL Burnet # (Auto) 0.75 H (0.11-0.59) K/uL Eos # (Auto) 0.01 (0.00-0.50) K/uL Baso # (Auto) 0.05 (0.00-0.20) K/uL Immature Gran # (Auto) 0.24 H (0.01-0.20) K/uL PT 11.9 (9.0-12.0) Seconds INR 1.1 (0.9-1.1) APTT 26 (21-31) Seconds PTT Ratio 1.0 Sodium 136 (136-145) mmol/L Potassium 3.7 (3.5-5.1) mmol/L Chloride 102 (98-107) mmol/L Carbon Dioxide 24 (21-32) mmol/L Anion Gap 10 (3-11) BUN 23 (6-23) mg/dl Creatinine 1.21 H (0.6-1.2) mg/dl Est Cr Clr Drug Dosing 83.3 ml/min eGFR 52.93 BUN/Creatinine Ratio 19.0 (10-20) Glucose 177 H (70-99(Fasting)) mg/dl Lactate 2.8 H* 1.5 (0.4-2.0) mmol/L Calcium 8.7 (8.6-10.3) mg/dl Magnesium 1.8 (1.7-2.4) mg/dl Total Bilirubin 1.1 H (0.2-1.0) mg/dl Direct Bilirubin 0.2 (0-0.2) mg/dl AST 15 (13-39) U/L ALT 14 (7-52) U/L Alkaline Phosphatase 56 (34-104) U/L Troponin I High Sens 6.9 (0-14) pg/ml Total Protein 7.5 (6.0-8.3) gm/dl Albumin 3.9 (3.4-5.0) gm/dl Procalcitonin 3.73 H (0-0.5) ng/ml Administered Medications Discontinued Medications Sodium Chloride (Nss) 1,000 mls @ 999 mls/hr IV .Q1H1M CORIN Stop: 02/25/25 09:30 Last Infusion: 02/25/25 09:43 Dose: Infused Documented By: Admin: 02/25/25 08:41 Dose: 999 mls/hr Documented By: JODIE Vancomycin HCl 2,750 mg/ (Sodium Chloride) 500 mls @ 200 mls/hr IV NOW ONE Stop: 02/25/25 10:48 Last Infusion: 02/25/25 11:16 Dose: Infused Documented By: Admin: 02/25/25 08:43 Dose: 200 mls/hr Documented By: JODIE Daptomycin 950 mg/ Syringe 19 mls @ 9.5 mls/min IV NOW ONE; Protocol Stop: 02/25/25 08:34 Last Admin: 02/25/25 08:43 Dose: 9.5 mls/min Documented By: JODIE Sodium Chloride (Nss) 1,000 mls @ 999 mls/hr IV .Q1H1M ONE Stop: 02/25/25 11:05 Last Infusion: 02/25/25 12:03 Dose: Infused Documented By: Admin: 02/25/25 10:51 Dose: 999 mls/hr Documented By: JODIE Imaging Data Radiologist's Impression: Chest X-Ray 02/25/25 08:17 XR chest 1V portable CLINICAL HISTORY: Sepsis COMPARISON STUDY: 02/02/2020 FINDINGS: Heart size and pulmonary vasculature are normal. No consolidation or pleural effusion. No pneumothorax. IMPRESSION: No acute findings. ACT 112: Negative or not required by law. Electronically signed by: Anthony Felix M.D. 02/25/2025 9:05 AM Foot X-Ray 02/25/25 08:17 XR foot RT min 3V routine CLINICAL HISTORY: pain, swelling, wound 3rd toe COMPARISON: 04/07/2024 FINDINGS: There are small chronic calcifications adjacent to the bases of the second and fourth proximal phalanges. No acute fracture or dislocation seen. No radiopaque foreign body. There is soft tissue swelling at the third toe. No osteomyelitis seen. There is mild pes planus. There are moderate calcaneal spurs. IMPRESSION: No evidence of osteomyelitis seen. ACT 112: Negative or not required by law. Electronically signed by: Anthony Felix M.D. 02/25/2025 9:07 AM Discharge Plan Visit Data Chief Complaint: Illness Stated Complaint: WEAKNESS, COLD SWEAT, HX SEPSIS SIMILAR SX ED Provider: Mike Lorenzana ED Midlevel Provider: Shelley Forrester Discharge Problem: Sepsis, Diabetic infection of right foot, Cellulitis of right lower extremity Patient Disposition: Admitted As Inpatient Condition: Good Discharge Instructions Interventions: ED Discharge Assessment Last Done: 02/25/25 13:47
[2025-02-25] MEDS: SODIUM CHLORIDE 0.9% 1,000 ML IV SCH (08:41)
[2025-02-25] MEDS: VANCOMYCIN HCL 2,750 MG in SODIUM CHLORIDE 0.9% 500 ML IV ONE (08:43)
[2025-02-25] MEDS: DAPTOmycin 950 MG in SYRINGE 0 ML IV ONE (08:43)
[2025-02-25 08:57] LABS: Hematocrit (blood only) 35.5 % (37.0-47.0); Hemoglobin 12.1 g/dL (12.0-16.0); Mean Corpuscular Hemoglobin 32.6 pg (25.0-34.0); Mean Corpuscular Volume 95.7 fL (80.0-100.0); Platelet Count 287 K/uL (130-400); RDW Standard Deviation 47.8 fL (36.4-46.3); Red Blood Count 3.71 M/uL (4.20-5.40); White Blood Count 27.91 K/ul (4.8-10.8)
--- NOTE | 2025-02-25 09:06 | XRay Report ---
XR chest 1V portable CLINICAL HISTORY: Sepsis COMPARISON STUDY: 02/02/2020 FINDINGS: Heart size and pulmonary vasculature are normal. No consolidation or pleural effusion. No p neumothorax. IMPRESSION: No acute findings. ACT 112: Negative or not required by law. Electronically signed by: Anthony Felix M.D. 02/25/2025 9:05 AM
--- NOTE | 2025-02-25 09:09 | XRay Report ---
XR foot RT min 3V routine CLINICAL HISTORY: pain, swelling, wound 3rd toe COMPARISON: 04/07/2024 FINDINGS: There are small chronic calcifications adjacent to the bases of the second and fourth prox imal phalanges. No acute fracture or dislocation seen. No radiopaque foreign body. There is soft tiss ue swelling at the third toe. No osteomyelitis seen. There is mild pes planus. There are moderate ketan caneal spurs. IMPRESSION: No evidence of osteomyelitis seen. ACT 112: Negative or not required by law. Electronically signed by: Anthony Felix M.D. 02/25/2025 9:07 AM
[2025-02-25 09:14] LABS: Alanine Aminotransferase 14.0 U/L (7-52); Albumin Level 3.9 gm/dl (3.4-5.0); Alkaline Phosphatase 56.0 U/L (34-104); Anion Gap 10.0 (3-11); Bilirubin,Total 1.1 mg/dl (0.2-1.0); Blood Urea Nitrogen 23.0 mg/dl (6-23); Calcium 8.7 mg/dl (8.6-10.3); Carbon Dioxide 24.0 mmol/L (21-32); Chloride 102.0 mmol/L (98-107); Creatinine Clr Calc Pharmacy 83.3 ml/min; Glucose 177.0 mg/dl (70-99(Fasting)); Magnesium 1.8 mg/dl (1.7-2.4); Potassium 3.7 mmol/L (3.5-5.1); Sodium 136.0 mmol/L (136-145); Total Protein 7.5 gm/dl (6.0-8.3)
[2025-02-25 09:21] LABS: Immature Granulocytes # (auto) 0.24 K/uL (0.01-0.20); Immature Granulocytes % (auto) 0.9 %
[2025-02-25 09:24] LABS: INR 1.1 (0.9-1.1); Partial Thromboplastin Time 26 Seconds (21-31); Prothrombin Time 11.9 Seconds (9.0-12.0)
[2025-02-25] MEDS: SODIUM CHLORIDE 0.9% 1,000 ML IV ONE (10:51)
--- NOTE | 2025-02-25 11:23 | History & Physical Report ---
<Statement entered by Pham Reyes MD - 02/25/25 22:35> I have reviewed vital signs, chart notes, labs and imaging. I have personally seen, evaluated and examined the patient. I have also discussed the management of the patient with the CHRISTIANO and I agree with the exam findings documented in the history and physical examination and the documented assessment and plan unless otherwise stated below. 54 y/o with DM2 and R toe ulcers admitted with rapidly progressing RLE SSTI Impending sepsis with severe leukocytosis, chills, myalgia On my exam she has obvious RLE 2nd toe and ankle/kaufman cellultiis tracking up toward knee with patchy erythema - this is rapidly progressive and new erythema since exam by ED MD and Wilfrido Tatum earlier today. Shallow appearing toe ulcer/callus on tip of 2nd toe with no significant wound, no probe to bone and x-ray negative low suspicion for OM. small <1cm medial bulla on same digit is acute developed overnight # RLE cellulitis / diabetic foot infection, recent MRSA diabetic foot infection - rapid progression c/w especially strep (or staph) -cont ABX with pip-tazo and vancomycin IV -follow up wound cultures from ED - small amt of drainage was present -WON consult -update project finance analyst Date of Service February 25, 2025 Assessment & Plan (1) Diabetic ulcer of right great toe: (2) Diabetic peripheral neuropathy associated with type 2 diabetes mellitus: (3) Diabetes mellitus, type 2: (4) Asthma: (5) Hyperlipidemia: Plan Pt is a 54 y/o F with a PMHx significant for hx MRSA infection 03/2024, Cardiac murmur, T2DM w/ peripheral neuropathy, Asthma, HLD, HTN, Depression, and Morbid Obesity who presented to the ED c/o cold sweats and illness x1 day. Labs in ED significant w/ WBC 27.91, Procal 3.73, Cr 1.21, and Bili of 1.1; Lactate was WNL at 1.5. Xray of R foot was nonconcerning for OM. Pt was admitted for further evaluation and care #DM Foot Ulcer - 02/25 Foot Xray w/ no evidence of OM, does note small chronic calcifications adjacent to bases of the 2nd and fourth proximal phalanges; -02/24 Wound Cx Pending -IVF NSS 500 @ 80 mL/hr -SHELL pending -IV Vancomycin + IV Zosyn -CBC, CMP, Procal in AM #T2DM w/ Peripheral Neuropathy - No recent HbA1C -Hold Metformin, Mounjaro -Lantus 9 QAM & HS -SSI (Bsg 110-150; CF 20; CR 20) -Pharmacy Glycemic Consult -Carb Consistent diet -HbA1C in AM #Asthma - 02/25 CXR w/ no acute findings -Continue Breztri Inhaler #HLD | HTN - No acute concern -Continue Lisinopril/HCTZ -Continue Pravastatin #Depression - No acute concerns -Continue Celexa #Chronic Bilateral Knee Pain - No acute concerns -Continue Meloxicam #Morbid Obesity w/ BMI >40 - No acute concerns -Encourage weight loss -Monitor I&Os VTE Proph: Heparin Dispo: Admit Med/surg for Observation History of Present Illness Chief Complaint: Cold Sweats and Illness Primary Care Provider: CLAUDETTE Bhandari Pt is a 54 y/o F with a PMHx significant for hx MRSA infection w/ hospitalization 11/2023, Cardiac murmur, T2DM w/ peripheral neuropathy, Asthma, HLD, HTN, Depression, and Morbid Obesity who presented to the ED c/o cold sweats and illness x1 day. Pt states that on 02/24 around 10:00 pm she began to develop chills. She notes that at that time, she was worried that she may have begun to develop an infection and decided to check her feet for any new wounds but did not see anything at that time. Overnight the patient notes that she had alot of difficulty sleeping. First thing this AM she said she had cold sweats that were so intense that she was "dripping cold sweat into her bathroom sink." She said that her symptoms continued to progress and that she came in when she "couldn't take it anymore" and felt the same way as when she had sepsis. Pt endorses chills, fatigue, difficulty sleeping, occasional nausea, and a mild headache. Pt denies fever, pain at site of lesion, congestion, rhinorrhea, sore throat, cough, SOB, CP, palpitations, vomiting, diarrhea, frequency, urgency, dysuria, dizziness, and feeling weak/unbalanced. Pt follows with Podiatry for diabetic foot care, last appointment 02/21. Pt was transported to the ED via . While she was in the ED, XR of R foot was without evidence of OM. Labs were significant w/ WBC count of 27.91, Procal 3.73, Cr 1.21, and Bili of 1.1; Lactate was WNL. Pt received IVF in addition to IV vancomycin and daptomycin. Pt will be admitted under observation for further evaluation and care. Pt is being admitted for further evaluation and care. Allergies Allergy/AdvReac Type Severity Reaction Status Date / Time aspirin Allergy Severe LIPS SWELL Verified 07/23/24 14:55 Home Medications Medication Instructions Recorded Confirmed Type antiarthritic combination no.2 900 900 mg PO QAM 02/17/18 02/25/25 History mg tablet (glucosamine-chondroitin) cinnamon bark 500 mg capsule 500 mg PO QAM 02/17/18 02/25/25 History (Cinnamon) escitalopram oxalate 10 mg tablet 10 mg PO QAM 02/17/18 02/25/25 History (Lexapro) meloxicam 15 mg tablet 15 mg PO QAM 02/17/18 02/25/25 History metformin 1,000 mg tablet 1,000 mg PO BID 02/17/18 02/25/25 History multivitamin (Daily Multi-Vitamin 1 tab PO QAM 02/17/18 02/25/25 History tablet) coenzyme Q10 100 mg capsule 100 mg PO QAM 04/16/19 02/25/25 History (CoQ-10) lisinopril 10 1 tab PO QAM 04/16/19 02/25/25 History mg-hydrochlorothiazide 12.5 mg tablet pravastatin 40 mg tablet 40 mg PO QAM 04/16/19 02/25/25 History budesonide 160 mcg-glycopyr 9 2 inh inhalation BID 03/25/22 02/25/25 History mcg-formot 4.8 mcg/actuation HFA inhaler (Breztri Aerosphere) tirzepatide 5 mg/0.5 mL 10 mg subcut WK 01/27/23 02/25/25 History subcutaneous pen injector (Mounjaro) omega-3 fatty acids 1,000 mg 1,000 mg PO QAM 11/03/23 02/25/25 History capsule Past Med/Surg History Problem List Acquired claw toe of right foot Peripheral arterial disease (Chronic) Diabetic ulcer of right great toe (Acute) Laceration of fifth toe of left foot Acute lymphangitis of right lower extremity Cellulitis of right lower extremity (Acute) Diabetic infection of right foot (Acute) Diabetic foot infection (Acute) Sepsis (Acute) Diabetic ulcer of toe of left foot associated with diabetes mellitus due to underlying condition, with fat layer exposed (Acute) Diabetic ulcer of left foot associated with diabetes mellitus due to underlying condition, limited to breakdown of skin (Acute) Traumatic open wound of right lower leg (Acute) Diabetic ulcer of left foot associated with type 2 diabetes mellitus, limited to breakdown of skin (Acute) Puncture wound (Acute) Diabetic ulcer of left foot associated with type 2 diabetes mellitus, with fat layer exposed (Acute) Encounter for pre-operative examination COVID-19 (Acute) Diabetic ulcer of left foot associated with type 2 diabetes mellitus, with fat layer exposed (Acute) Diabetic ulcer of left foot associated with type 2 diabetes mellitus, limited to breakdown of skin (Acute) Diabetic ulcer of toe of left foot associated with type 2 diabetes mellitus, limited to breakdown of skin (Acute) Foot deformity (Chronic) Edema (Chronic) Personal history of diabetic foot ulcer (Chronic) Loss of protective sensation of skin of foot (Chronic) Left ureteral calculus (Chronic) S/P cholecystectomy (Chronic) Heart murmur (Chronic) follows with PCP Arthritis (Chronic) Hemorrhoids (Chronic) Medical History History of recent hospitalization (11/2023) [facility] [place] (sepsis) History of MRSA infection (11/2023) History of sepsis (11/2023) History of cellulitis (11/2023) right foot Cardiac murmur follows pcp for. Diabetes mellitus, type 2 Diabetic peripheral neuropathy associated with type 2 diabetes mellitus Asthma no recent flare. Hyperlipidemia Morbid obesity with BMI of 60.0-69.9, adult History of kidney stones History of COVID-19 diagnosed 02/02/2020 @ [facility]--loss sense of taste/smell, achy, loss appetite, headache, sore throat - resolved. No hx hospitalization. Diabetes mellitus with diabetic polyneuropathy Depression HTN (hypertension) Surgical History History of colonoscopy History of arthroscopy of right knee History of wisdom tooth extraction History of cholecystectomy Family History Father Diabetes Brother Diabetes Sister Nephrolithiasis Other Cancer Heart disease Hypertension Lung disease No family history of adverse response to anesthesia Social History Smoking Status: Never smoker Second Hand Exposure: No; Do You Dip or Chew Tobacco: No; Hx Alcohol Use: No Hx Substance Use: No Preferred Language: Serbian Communication Ability: Effective Visual Impairment: No Limitations Hearing Ability: Normal [place] Required: No Beliefs That Will Affect Care: None marital status: Current Living Situation: Spouse Current Living Situation Comment: Spouse able to assist with dressing changes current occupational status: employed current occupation: Skills Other Information That Helps Us Care for You: No Feels Safe at Home: Yes Safety Concerns: Feels Safe At This Time Assistive Devices: Glasses Review of Systems 2 Review of Systems: All systems reviewed & are unremarkable except as noted in Subjective Physical Exam 2 Physical Exam: General: Pt is a 54 y/o morbidly obese F in NAD in bed. VS: reviewed, unremarkable Skin: Noted lesion at distal aspect of Rt 3rd toe, some erythema noted surrounding toe (pictured below); Skin is otherwise warm and dry Respiratory: CTA bilat, no adventitious sounds noted. Chest expansion is full and symmetrical Cardio: RRR, +Murmur Abdomen: Round, normoactive BS x4, nontender to palpation MSK: FROM of extremities, no deformities, pt able to ambulate without difficulty Extremities: no edema Neuro: A&Ox4, cooperative Results & Data Results & Data Vital Signs (Past 12 Hours) Vital Signs Temp Pulse Pulse Resp BP BP Pulse Ox 02/25/25 09:52 68 18 124/70 96 02/25/25 09:51 66 02/25/25 09:02 72 18 129/75 96 02/25/25 08:44 95 02/25/25 08:44 75 17 112/74 95 02/25/25 08:38 76 18 112/74 98 02/25/25 08:04 98.4 F 80 20 134/70 97 O2 Del Method 02/25/25 09:52 Room Air 02/25/25 09:51 02/25/25 09:02 Room Air 02/25/25 08:44 Room Air 02/25/25 08:44 Room Air 02/25/25 08:38 Room Air 02/25/25 08:04 Room Air Laboratory Results Reviewed: CBC, PT/INR, APTT, PTT Ratio, CMP, Procalcitonin Diagnostic Findings Reviewed: CXR, Foot Xray PG Care Time/CCT Total # of Minutes Spent Total Time Spent with Patient: Total time spent is greater than 50% in coordination of care (as documented) at patient's floor/unit and/or counseling patient: Coding Level of Care Code 09187 INT INP/OBS CARE 3/75MIN Diagnoses Diabetic ulcer of right great toe E11.621; L97.519 Diabetic peripheral neuropathy associated with type 2 diabetes mellitus E11.42 Diabetes mellitus, type 2 E11.9 Asthma J45.909 Hyperlipidemia E78.5
--- NOTE | 2025-02-25 13:52 | Electrocardiogram Report ---
Test Reason : Blood Pressure : */* mmHG Vent. Rate : 82 BPM Atrial Rate : 82 BPM P-R Int : 148 ms QRS Dur : 82 ms QT Int : 380 ms P-R-T Axes : 26 -17 11 degrees QTcB Int : 443 ms Normal sinus rhythm Normal ECG When compared with ECG of 02-Feb-2020 13:41, No significant change was found Confirmed by Del Segundo ([id number]) on 02/25/2025 1:51:36 PM Referred By: Confirmed By: Del Segundo
[2025-02-25] MEDS ORDERED: DEXTROSE 50% 50 ML SYRINGE IV PRN (14:08)
[2025-02-25] MEDS ORDERED: PHARMACY GLYCEMIC MGMT CONSULT PRN (14:08)
[2025-02-25] MEDS ORDERED: VANCOMYCIN HCL 2,750 MG in SODIUM CHLORIDE 0.9% 500 ML IV ONE (14:08)
[2025-02-25] MEDS ORDERED: MELATONIN 3 MG TAB PO PRN (14:08)
[2025-02-25] MEDS ORDERED: ONDANSETRON INJ 2 MG/ML 2 ML VIAL IV PRN (14:08)
[2025-02-25] MEDS ORDERED: GLUCOSE 40% GEL 15 GM TUBE PO PRN (14:08)
[2025-02-25] MEDS ORDERED: GLUCAGON FOR INJ 1 MG VIAL SQ PRN (14:08)
[2025-02-25] MEDS ORDERED: CARBOHYDRATES FOR HYPOGLYCEMIA PO PRN (14:08)
[2025-02-25] MEDS ORDERED: POLYETHYLENE (MIRALAX) 17 GM PACK PO PRN (14:08)
[2025-02-25] MEDS ORDERED: ACETAMINOPHEN 325 MG TAB PO PRN (14:08)
[2025-02-25] MEDS ORDERED: GLUCOSE 10 TAB/TUBE PO PRN (14:08)
[2025-02-25 14:28] VITALS: RESP 18
--- NOTE | 2025-02-25 14:47 | Pharmacy Report ---
Pharmacy PK ABX Note - Date of Service February 25, 2025 - Assessment and Plan Assessment 54 year old F receiving vancomycin and Zosyn for treatment of a DM foot ulcer. -Blood cultures x 2 and right third toe cultures from 02/25 are pending. -Patient with a history of MRSA earlier this year in right great toe. -Leukocytosis present, procal = 3.73, afebrile, and slight increase in SCr from baseline (SCr= 1.21 today) Day #1 antimicrobial therapy Plan Vancomycin * Loading dose: 2750 mg IV x 1 * Maintenance dose: 1500 mg IV every 24 hours * Regimen is predicted to achieve target AUC/JUDY of 400-600 mg/L.hr * Random level will be ordered in the next few days if the vancomycin is continued. Zosyn 4.5gm iv q 8 hours. Pharmacy will continue to follow and will adjust dose/frequency as necessary. Thank you. Pharmacy has transitioned to AUC monitoring for vancomycin. AUC/JUDY is the preferred PK/PD target and is associated with decreased risk of nephrotoxicity compared to traditional trough targets.
[2025-02-25] MEDS: SODIUM CHLORIDE 0.9% 500 ML IV SCH (14:50)
--- NOTE | 2025-02-25 14:56 | Ultrasound Report ---
ULTRASOUND ANKLE-BRACHIAL INDICES CLINICAL HISTORY: Peripheral vascular disease. COMPARISON STUDY: Ankle-brachial indices dated 11/04/2023. FINDINGS: Ankle-brachial indices were assessed in ultrasound. Right brachial pressure measures 120 an d left brachial pressure measures 113. Pressures in the right posterior tibial artery measure 130 for an SHELL of 1.08 and pressures in the right dorsalis pedis measure 116 for an SHELL of 0.97. Pressures i n the left posterior tibial artery measure 106 for an SHELL of 0.88 and pressures in the left dorsalis pedis measure 118 for an SHELL of 0.98. IMPRESSION: Ankle-brachial indices as above. Dictated: 02/25/2025 2:06 PM Transcribed: 02/25/2025 2:45 PM Viviana [id number] HECTOR_Prince [id number] Electronically signed by: Russ Dunlap M.D. 02/25/2025 2:55 PM
--- NOTE | 2025-02-25 14:58 | Pharmacy Report ---
Pharmacy Glycemic Short Note 2 - Date of Service February 25, 2025 - Glycemic Short BSG Results (Last 24 hours): 02/25/25 02/25/25 08:32 14:12 Glucose 177 H POC Glucose 85 OUTPATIENT ANTIDIABETIC REGIMEN: * metformin 1000mg PO BID * Mounjaro 10mg SQ weekly HbA1c ordered for AM labs 02/26/25 ASSESSMENT: * Haylie is a 54 year old female who was admitted today for a diabetic foot infection. Pharmacy has been consulted for glycemic management while she is admitted. * BSG on admit was 85mg/dL. A weight based (using adjusted body weight) bolus insulin regimen with a stress of 1 was started. A Lantus scale based on BSG was also added for HS--stress from her current infection may cause blood glucose levels to rise. PLAN FOR INPATIENT GLYCEMIC CONTROL: * Hold outpatient diabetes medications * Basal insulin * Lantus scale at HS (0, 10, or 15 units depending on BSG) * Bolus insulin * NovoLog per scale ACHS or Q6hrs while NPO * Goal Range: Low 120 mg/dL - High 150 mg/dL * Correction Factor: 45 mg/dL/unit * Nutritional / Prandial insulin per carb ratio of 1 unit per 15 grams CHO consumed
[2025-02-25] MEDS: PIPERACILLIN/TAZOBACTAM 4.5 GM/100 ML BAG IV ONE (15:05)
[2025-02-25 16:05] LABS: Appearance Urine Clear (Clear); Glucose Urine UA Negative (Negative)
[2025-02-25] MEDS: INSULIN ASPART PER UNIT CHARGE SC SCH (17:27)
[2025-02-25] MEDS: HEPARIN SOD 5,000 UNIT/0.5 ML VIAL SQ SCH (20:49)
[2025-02-25] MEDS: PIPERACILLIN/TAZOBACTAM 4.5 GM/100 ML BAG IV SCH (20:49)
[2025-02-25] MEDS: LANTUS PER UNIT CHARGE SC SCH (20:50)
[2025-02-25] MEDS ORDERED: NON-FORMULARY MEDICATION (Budesonide-Glycopyr-Formoterol [Breztri Aerosphere] 160-9-4.8 mc INH SCH (21:00)
[2025-02-25] MEDS ORDERED: LANTUS PER UNIT CHARGE SQ SCH (21:00)
[2025-02-26] MEDS: VANCOMYCIN HCL 1,500 MG in SODIUM CHLORIDE 0.9% 500 ML IV SCH (05:35)
[2025-02-26 07:04] LABS: Hematocrit (blood only) 33.7 % (37.0-47.0); Hemoglobin 10.9 g/dL (12.0-16.0); Immature Granulocytes # (auto) 0.05 K/uL (0.01-0.20); Immature Granulocytes % (auto) 0.4 %; Mean Corpuscular Hemoglobin 32.0 pg (25.0-34.0); Mean Corpuscular Volume 98.8 fL (80.0-100.0); Platelet Count 230 K/uL (130-400); RDW Standard Deviation 51.1 fL (36.4-46.3); Red Blood Count 3.41 M/uL (4.20-5.40); White Blood Count 11.40 K/ul (4.8-10.8)
[2025-02-26 07:56] LABS: Albumin Level 3.2 gm/dl (3.4-5.0); Anion Gap 8.0 (3-11); Bilirubin,Total 0.8 mg/dl (0.2-1.0); Calcium 7.9 mg/dl (8.6-10.3); Carbon Dioxide 25.0 mmol/L (21-32); Chloride 107.0 mmol/L (98-107); Potassium 3.5 mmol/L (3.5-5.1); Sodium 140.0 mmol/L (136-145)
[2025-02-26 08:01] LABS: Hemoglobin A1C 5.1 % (4.5-5.6)
[2025-02-26 08:02] LABS: Alanine Aminotransferase 11.0 U/L (7-52); Albumin Globulin Ratio 1.1 (0.9-2); Alkaline Phosphatase 45.0 U/L (34-104); Blood Urea Nitrogen 22.0 mg/dl (6-23); Creatinine Clr Calc Pharmacy 79.4 ml/min; Globulin 3.0 gm/dl (2.5-4.0); Glucose 94.0 mg/dl (70-99(Fasting)); Total Protein 6.2 gm/dl (6.0-8.3)
[2025-02-26] MEDS: ESCITALOPRAM OXALATE 10 MG TAB PO SCH (08:35)
[2025-02-26] MEDS: FLUTICASONE FUROATE 200MCG 14 PUFFS/INHALER INH SCH (08:35)
[2025-02-26] MEDS: LISINOPRIL/HCTZ 10/12.5MG TAB PO SCH (08:36)
[2025-02-26] MEDS: PRAVASTATIN SOD 40 MG TAB PO SCH (08:36)
[2025-02-26] MEDS: UMECLIDINIUM/VILANTEROL 62.5/25MCG 7 PUFFS/INHALER INH SCH (08:42)
--- NOTE | 2025-02-26 08:52 | Hospitalist Progress Note ---
"Date of Service February 26, 2025 Assessment & Plan (1) Diabetic ulcer of right great toe: (2) Diabetic peripheral neuropathy associated with type 2 diabetes mellitus: (3) Diabetes mellitus, type 2: (4) Asthma: (5) Hyperlipidemia: Plan Pt is a 54 y/o F with a PMHx significant for hx MRSA infection 03/2024, Cardiac murmur, T2DM w/ peripheral neuropathy, Asthma, HLD, HTN, Depression, and Morbid Obesity who presented to the ED c/o cold sweats and illness x1 day. Labs in ED significant w/ WBC 27.91, Procal 3.73, Cr 1.21, and Bili of 1.1; Lactate was WNL at 1.5. Xray of R foot was nonconcerning for OM. Pt was admitted for further evaluation and care #DM Foot Ulcer - Follows w/ Dr Wright; 02/25 Foot Xray w/ no evidence of OM, does note small chronic calcifications adjacent to bases of the 2nd and fourth proximal phalanges; 02/25 SHELL + for PVD -02/24 Wound Cx Pending -Discontinue IVF -Continue IV Vancomycin + IV Zosyn -CBC, CMP, Procalcitonin in AM #T2DM w/ Peripheral Neuropathy - 02/26 HbA1c 5.7 -Hold Metformin, Mounjaro -Lantus 9 QAM & HS -SSI (Bsg 110-150; CF 20; CR 20) -Pharmacy Glycemic Consult -Carb Consistent diet #Asthma - 02/25 CXR w/ no acute findings -Continue Breztri Inhaler #HLD | HTN - No acute concern -Continue Lisinopril/HCTZ -Continue Pravastatin #Depression - No acute concerns -Continue Celexa #Chronic Bilateral Knee Pain - No acute concerns -Continue Meloxicam #Morbid Obesity w/ BMI >40 - No acute concerns -Encourage weight loss -Monitor I&Os VTE Proph: Heparin Dispo: Admit Med/surg for Observation Admission and Anticipated Discharge Date Admission Date: February 25, 2025 Supervising Physician Co-Signing Physician Notes The patient was not seen by me. Chart reviewed. Case discussed with FARHAN Garcia. Agree with assessment and plan. Subjective Pt was sitting at bedside in NAD. She notes that she is feeling significantly better. She has no difficulties with ambulation. Pt denies cough, congestion, sore throat, SOB, chest pain, abd pain/discomfort, N/V/D, dizziness, light headedness, and weakness. Review of Systems Review of Systems: All systems reviewed & are unremarkable except as noted in Subjective Physical Exam Physical Exam: General: Pt is a 54 y/o morbidly obese F in NAD in bed. VS: reviewed, unremarkable Skin: Noted lesion at distal aspect of Rt 3rd toe, some erythema noted surrounding toe and now extending up leg (pictured below); Skin is otherwise warm and dry Respiratory: CTA bilat, no adventitious sounds noted. Chest expansion is full and symmetrical Cardio: RRR, +Murmur Abdomen: Round, normoactive BS x4, nontender to palpation MSK: FROM of extremities, no deformities, pt able to ambulate without difficulty Extremities: no edema Neuro: A&Ox4, cooperative Results & Data Results & Data Vital Signs (Past 12 Hours) Vital Signs Temp Pulse Resp BP Pulse Ox O2 Del Method 02/26/25 08:19 Room Air 02/26/25 07:53 97.5 F L 59 L 18 122/80 98 Room Air 02/25/25 23:15 98.1 F 63 18 101/58 L 95 Room Air Laboratory Results Reviewed: CBC, BMP, Procalcitonin Diagnostic Findings Reviewed: SHELL PG Care Time/CCT Total # of Minutes Spent Total Time Spent with Patient: Total time spent is greater than 50% in coordination of care (as documented) at patient's floor/unit and/or counseling patient: Coding Level of Care Code 84184 SUB INP/OBS CARE 2/35MIN Diagnoses Diabetic ulcer of right great toe E11.621; L97.519 Diabetic peripheral neuropathy associated with type 2 diabetes mellitus E11.42 Diabetes mellitus, type 2 E11.9 Asthma J45.909 Hyperlipidemia E78.5"
[2025-02-26] MEDS ORDERED: MELOXICAM 7.5 MG TAB PO SCH (09:00)
[2025-02-27] MEDS ORDERED: VANCOMYCIN LEVEL ONE (04:30)
[2025-02-27] MEDS: VANCOMYCIN LEVEL ONE (05:48)
[2025-02-27 06:09] LABS: Hematocrit (blood only) 35.2 % (37.0-47.0); Hemoglobin 11.4 g/dL (12.0-16.0); Immature Granulocytes # (auto) 0.02 K/uL (0.01-0.20); Immature Granulocytes % (auto) 0.3 %; Mean Corpuscular Hemoglobin 31.8 pg (25.0-34.0); Mean Corpuscular Volume 98.3 fL (80.0-100.0); Platelet Count 269 K/uL (130-400); RDW Standard Deviation 49.5 fL (36.4-46.3); Red Blood Count 3.58 M/uL (4.20-5.40); White Blood Count 7.83 K/ul (4.8-10.8)
[2025-02-27 06:39] LABS: Alanine Aminotransferase 12.0 U/L (7-52); Albumin Globulin Ratio 1.0 (0.9-2); Albumin Level 3.6 gm/dl (3.4-5.0); Alkaline Phosphatase 50.0 U/L (34-104); Anion Gap 7.0 (3-11); Bilirubin,Total 0.8 mg/dl (0.2-1.0); Blood Urea Nitrogen 21.0 mg/dl (6-23); Calcium 8.5 mg/dl (8.6-10.3); Carbon Dioxide 27.0 mmol/L (21-32); Chloride 106.0 mmol/L (98-107); Creatinine Clr Calc Pharmacy 81.3 ml/min; Globulin 3.5 gm/dl (2.5-4.0); Glucose 101.0 mg/dl (70-99(Fasting)); Potassium 3.9 mmol/L (3.5-5.1); Sodium 140.0 mmol/L (136-145); Total Protein 7.1 gm/dl (6.0-8.3)
[2025-02-27 10:07] VITALS: BP 138/80; PULSE 62; TEMP 97.5; O2SAT 99
--- NOTE | 2025-02-27 11:35 | Discharge Summary ---
Discharge Summary Date of Service February 27, 2025 Principal Dx & Hospital Course #1 = Principal Diagnosis (1) Diabetic ulcer of right great toe: (2) Diabetic peripheral neuropathy associated with type 2 diabetes mellitus: (3) Diabetes mellitus, type 2: (4) Asthma: (5) Hyperlipidemia: Plan #DM Foot Ulcer of 3rd toe R foot -Pt is a 54 y/o F with a PMHx significant for hx MRSA infection 03/2024, Cardiac murmur, T2DM w/ peripheral neuropathy, Asthma, HLD, HTN, Depression, and Morbid Obesity who presented to the ED c/o cold sweats and illness x1 day. Labs in ED significant w/ WBC 27.91, Procal 3.73, Cr 1.21, and Bili of 1.1; Lactate was WNL at 1.5. Xray of R foot was nonconcerning for OM 02/25. SHELL was additionally preformed 02/25 and was with evidence of PVD. Wound Cx came back positive for Strep agalactiae and Finefoldia magna. She was then transitioned from IV Vancomycin and IV Zosyn to PO Augmentin. Pt should maintain f/u appointment w/ Dr Wright on 03/04/2025 as scheduled. Pt should f/u w/ PCP within one week of discharge. Pt should f/u w/ wound clinic as scheduled. #T2DM w/ Peripheral Neuropathy - 02/26 HbA1c 5.7; No acute concerns, please continue home regimen #Asthma - 02/25 CXR w/ no acute findings; please continue home Breztri inhaler #HLD | HTN - No acute concern, please continue Lisinopril/HCTZ and Pravastatin #Depression - No acute concerns, please continue Celexa #Chronic Bilateral Knee Pain - No acute concerns, please continue Meloxicam #Morbid Obesity w/ BMI >40 - No acute concerns -Encourage weight loss -Monitor I&Os Dispo: Home, self-care Admission HPI Per Admitting Provider Pt is a 54 y/o F with a PMHx significant for hx MRSA infection w/ hospitalization 11/2023, Cardiac murmur, T2DM w/ peripheral neuropathy, Asthma, HLD, HTN, Depression, and Morbid Obesity who presented to the ED c/o cold sweats and illness x1 day. Pt states that on 02/24 around 10:00 pm she began to develop chills. She notes that at that time, she was worried that she may have begun to develop an infection and decided to check her feet for any new wounds but did not see anything at that time. Overnight the patient notes that she had alot of difficulty sleeping. First thing this AM she said she had cold sweats that were so intense that she was "dripping cold sweat into her bathroom sink." She said that her symptoms continued to progress and that she came in when she "couldn't take it anymore" and felt the same way as when she had sepsis. Pt endorses chills, fatigue, difficulty sleeping, occasional nausea, and a mild headache. Pt denies fever, pain at site of lesion, congestion, rhinorrhea, sore throat, cough, SOB, CP, palpitations, vomiting, diarrhea, frequency, urgency, dysuria, dizziness, and feeling weak/unbalanced. Pt follows with Podiatry for diabetic foot care, last appointment 02/21. Pt was transported to the ED via . While she was in the ED, XR of R foot was without evidence of OM. Labs were significant w/ WBC count of 27.91, Procal 3.73, Cr 1.21, and Bili of 1.1; Lactate was WNL. Pt received IVF in addition to IV vancomycin and daptomycin. Pt will be admitted under observation for further evaluation and care. Pt is being admitted for further evaluation and care. Discharge Plan Discharge Items Patient Disposition: Home - Self-Care Reason For Visit: ULCER OF 3RD TOE R FOOT Discharge Diagnosis: Ulcer of 3rd toe Rt foot Condition on Discharge: Good Activity: Resume your previous activity Non-emergency contact: Primary Care Provider and Specialist Call non-emergency contact if: you have any medication questions, your symptoms worsen and you have a fever Follow-up/Referrals: Tiago Wright DPM [Surgeon] - (Follow-up as scheduled 03/04/2025) Kathryn Angel CRNP [Primary Care Provider] - (Follow-up within one week of discharge) Diet: Carb Consistent or DM2 Addtl Attending Provider Instructions: Hospital Course: You were admitted to the hospital for an ulceration of the 3rd toe on your R foot. While you were in the hospital you received IV abx empirically until your wound culture tested positive for Strep Agalactiae and Finegoldia Magna. You were then transitioned to PO Augmentin and discharged home from the hospital. Discharge Plan: -Please follow-up with your PCP within one week of discharge -Please follow-up with your senior geotechnical engineer as scheduled -Please follow-up with wound clinic -Please continue to attend diabetic foot care appointments -You will be prescribed Augmentin, please take as directed -Augmentin can often be hard on the stomach, if you notice abdominal discomfort, you could consider adding a Lactobacillus Probiotic which can be purchased over the counter Medications: Your medication list has been reviewed and reconciled upon discharge to ensure accuracy and continuity of care. An updated list of all your medications is included with your hospital discharge paperwork. Please review this list closely, and make note of any changes. We sent a new medication called Augmentin to your pharmacy. Take 2 times a day for the next 10 days. Start this this AM, this is an antibiotic to help with your infection. Take your medications as instructed; do not skip a dose of your medicines. Make sure all of your doctors know every medicine you are taking (including ipgz-gva-hfxfwwf medicines, vitamins, and supplements). Call your primary care provider before taking any new medicines (including over- the-counter medicines, vitamins, and supplements), because some of these may interact with your current medications, or may make your symptoms worse. Tell your primary care provider if you cannot afford your medications. Activity: You can do normal everyday activities as your body allows. Take rest breaks if you feel tired. Do not overexert. Stop activity if you have pain, shortness of breath or feel dizzy. Follow-up appointments: Make an appointment with your primary care physician within one week of discharge. A copy of this summary will be sent to them. Every time you see your primary care physician, or any other doctor, bring your medication list, and a list of questions. CONTACT YOUR PRIMARY CARE PROVIDER if you experience any of the following: Shortness of breath or difficulty breathing Fevers or chills Feeling tired with normal activity or experiencing dizziness or fainting Difficulty following your treatment plan, or difficulty taking medications CALL 911 OR GO TO THE EMERGENCY DEPARTMENT if you experience any of the following: Severe abdominal pain or nausea/vomiting Severe chest pain, or chest pain that radiates (moves) to your jaw or arm Sudden, severe shortness of breath or difficulty breathing Thank you for allowing us to participate in your care. Pending Studies at Discharge: No Stand-Alone Forms: My [facility], Smoking Cessation Medications and DC Order Prescriptions: New amoxicillin-pot clavulanate 875-125 mg tablet 1 tab PO BID 10 Days Qty: 20 0RF Continued Breztri Aerosphere 160-9-4.8 mcg/actuation HFA aerosol inhaler 2 inh inhalation BID escitalopram oxalate [Lexapro] 10 mg tablet 10 mg PO QAM meloxicam 15 mg tablet 15 mg PO QAM metformin 1,000 mg tablet 1,000 mg PO BID antiarthritic combination no.2 [glucosamine-chondroitin] 900 mg tablet 900 mg PO QAM cinnamon bark [Cinnamon] 500 mg capsule 500 mg PO QAM multivitamin [Daily Multi-Vitamin] tablet 1 tab PO QAM Mounjaro 5 mg/0.5 mL pen injector 10 mg subcut WK Patient Comments: sundays Rx Instructions: SUNDAYS pravastatin 40 mg Tablet 40 mg PO QAM lisinopril-hydrochlorothiazide 10-12.5 mg tablet 1 tab PO QAM coenzyme Q10 [CoQ-10] 100 mg Capsule 100 mg PO QAM omega-3 fatty acids 1,000 mg Capsule 1,000 mg PO QAM Discharge Orders: Discharge Order (Routine); Ordered 02/27/25 Ordered By: Casandra Funes Admission Data Admit Date/Time: 02/25/25 12:28 Attending Provider: Obey Barragan Admit Provider: Casandra Funes Primary Care Provider: Kathryn Angel Other Providers: Pham Reyes Hospital Stay Data Consultations 02/25/25 10:41 ED Decision to Admit Stat Diagnostic Imagining Performed Chest X-Ray 02/25/25 08:17 XR chest 1V portable CLINICAL HISTORY: Sepsis COMPARISON STUDY: 02/02/2020 FINDINGS: Heart size and pulmonary vasculature are normal. No consolidation or pleural effusion. No pneumothorax. IMPRESSION: No acute findings. ACT 112: Negative or not required by law. Electronically signed by: Anthony Felix M.D. 02/25/2025 9:05 AM Foot X-Ray 02/25/25 08:17 XR foot RT min 3V routine CLINICAL HISTORY: pain, swelling, wound 3rd toe COMPARISON: 04/07/2024 FINDINGS: There are small chronic calcifications adjacent to the bases of the second and fourth proximal phalanges. No acute fracture or dislocation seen. No radiopaque foreign body. There is soft tissue swelling at the third toe. No osteomyelitis seen. There is mild pes planus. There are moderate calcaneal spurs. IMPRESSION: No evidence of osteomyelitis seen. ACT 112: Negative or not required by law. Electronically signed by: Anthony Felix M.D. 02/25/2025 9:07 AM Ankle Brachial Index 02/25/25 12:54 ULTRASOUND ANKLE-BRACHIAL INDICES CLINICAL HISTORY: Peripheral vascular disease. COMPARISON STUDY: Ankle-brachial indices dated 11/04/2023. FINDINGS: Ankle-brachial indices were assessed in ultrasound. Right brachial pressure measures 120 and left brachial pressure measures 113. Pressures in the right posterior tibial artery measure 130 for an SHELL of 1.08 and pressures in the right dorsalis pedis measure 116 for an SHELL of 0.97. Pressures in the left posterior tibial artery measure 106 for an SHELL of 0.88 and pressures in the left dorsalis pedis measure 118 for an SHELL of 0.98. IMPRESSION: Ankle-brachial indices as above. Dictated: 02/25/2025 2:06 PM Transcribed: 02/25/2025 2:45 PM Teepatrica [id number] HECTOR_Prince [id number] Electronically signed by: Russ Dunlap M.D. 02/25/2025 2:55 PM 02/25/25 12:54 US ankle brachial index [US ankle/brachial index ltd] Stat Pending Results Patient Have Any Pending Studies at Discharge: No Discharge Instructions Given to Patient (Per Discharging Provider) Hospital Course: You were admitted to the hospital for an ulceration of the 3rd toe on your R foot. While you were in the hospital you received IV abx empirically until your wound culture tested positive for Strep Agalactiae and Finegoldia Magna. You were then transitioned to PO Augmentin and discharged home from the hospital. Discharge Plan: -Please follow-up with your PCP within one week of discharge -Please follow-up with your senior geotechnical engineer as scheduled -Please follow-up with wound clinic -Please continue to attend diabetic foot care appointments -You will be prescribed Augmentin, please take as directed -Augmentin can often be hard on the stomach, if you notice abdominal discomfort, you could consider adding a Lactobacillus Probiotic which can be purchased over the counter Medications: Your medication list has been reviewed and reconciled upon discharge to ensure accuracy and continuity of care. An updated list of all your medications is included with your hospital discharge paperwork. Please review this list closely, and make note of any changes. We sent a new medication called Augmentin to your pharmacy. Take 2 times a day for the next 10 days. Start this this AM, this is an antibiotic to help with your infection. Take your medications as instructed; do not skip a dose of your medicines. Make sure all of your doctors know every medicine you are taking (including iidk-fpi-vjwingl medicines, vitamins, and supplements). Call your primary care provider before taking any new medicines (including over- the-counter medicines, vitamins, and supplements), because some of these may interact with your current medications, or may make your symptoms worse. Tell your primary care provider if you cannot afford your medications. Activity: You can do normal everyday activities as your body allows. Take rest breaks if you feel tired. Do not overexert. Stop activity if you have pain, shortness of breath or feel dizzy. Follow-up appointments: Make an appointment with your primary care physician within one week of discharge. A copy of this summary will be sent to them. Every time you see your primary care physician, or any other doctor, bring your medication list, and a list of questions. CONTACT YOUR PRIMARY CARE PROVIDER if you experience any of the following: Shortness of breath or difficulty breathing Fevers or chills Feeling tired with normal activity or experiencing dizziness or fainting Difficulty following your treatment plan, or difficulty taking medications CALL 911 OR GO TO THE EMERGENCY DEPARTMENT if you experience any of the following: Severe abdominal pain or nausea/vomiting Severe chest pain, or chest pain that radiates (moves) to your jaw or arm Sudden, severe shortness of breath or difficulty breathing Thank you for allowing us to participate in your care. Supervising Physician Co-Signing Physician Notes The patient was not seen by me. Chart reviewed. Case discussed with FARHAN Garcia. Agree with assessment and plan. Total Time Total Time Spent Total Time Spent (In Minutes): Time spent day of discharge 34 minutes including direct patient care, medication reconciliation, documentation, review of labs and images, and coordination of care. Coding Level of Care Code 69845 INP/OBS DISCH >30 MIN Diagnoses Diabetic ulcer of right great toe E11.621; L97.519 Diabetic peripheral neuropathy associated with type 2 diabetes mellitus E11.42 Diabetes mellitus, type 2 E11.9 Asthma J45.909 Hyperlipidemia E78.5
[2025-02-27] MEDS ORDERED: VANCOMYCIN HCL 1,750 MG in SODIUM CHLORIDE 0.9% 500 ML IV SCH (22:00)
== END 2025-02-27 12:56 | disposition home or self-care (01) ==
LOC: ED 07:56 → 3E 07:56 → SUATTDRO 12:28 → 3E 13:47